=== PATIENT | male | born 1955 | race Caucasian/White ===

== ENCOUNTER 2020-03-03 07:05 | Outpatient (CLI) | payer OTHER, MEDICARE, SELFPAY ==
[2020-03-03 07:57] LABS: Alanine Aminotransferase 25 U/L (4-50); Albumin Level 4.1 g/dL (3.5-5.1); Alkaline Phosphatase 61 U/L (38-126); Aspartate Amino Transferase 29 U/L (17-59); Bilirubin,Total 0.4 mg/dL (0.2-1.3); Blood Urea Nitrogen 21 mg/dL (9-20); Calcium 8.5 mg/dL (8.4-10.2); Carbon Dioxide 29 mmol/L (22-30); Chloride 106 mmol/L (98-107); Estimated Glomerular Filt Rate > 60; Glucose 139 mg/dL (75-110); Potassium 4.1 mmol/L (3.4-5.0); Sodium 140 mmol/L (137-145)
[2020-03-03 08:01] LABS: Hemoglobin A1C 6.6 % (<5.7)
== END 2020-03-03 07:06 | disposition home or self-care (01) ==
PROVIDERS: PCP Family Medicine; Visit Provider Family Medicine
DX: E11.9 Type 2 diabetes mellitus without complications (principal)
CPT/HCPCS: 36415; 80053; 83036

== ENCOUNTER 2020-08-06 06:45 | Outpatient (CLI) | payer OTHER, MEDICARE, SELFPAY ==
[2020-08-06 07:16] LABS: Alanine Aminotransferase 31 U/L (4-50); Alkaline Phosphatase 61 U/L (38-126); Anion Gap 5 mmol/L (8-16); Aspartate Amino Transferase 33 U/L (17-59); Bilirubin,Total 0.4 mg/dL (0.2-1.3); Blood Urea Nitrogen 26 mg/dL (9-20); Calcium 8.5 mg/dL (8.4-10.2); Carbon Dioxide 31 mmol/L (22-30); Chloride 106 mmol/L (98-107); Estimated Glomerular Filt Rate > 60; Glucose 139 mg/dL (75-110); Potassium 4.3 mmol/L (3.4-5.0); Sodium 142 mmol/L (137-145)
[2020-08-06 07:19] LABS: Hemoglobin A1C 6.5 % (<5.7)
== END 2020-08-06 06:46 | disposition home or self-care (01) ==
PROVIDERS: PCP Family Medicine; Visit Provider Family Medicine
DX: E11.9 Type 2 diabetes mellitus without complications (principal)
CPT/HCPCS: 36415; 80053; 83036

== ENCOUNTER 2020-12-08 07:56 | Outpatient (CLI) | payer OTHER, MEDICARE, SELFPAY ==
[2020-12-08 08:22] LABS: Hematocrit 46.4 % (42.0-52.0); Hemoglobin 15.1 g/dL (14.0-18.0); Mean Corpuscular HGB Conc 32.5 g/dl (32-36); Mean Corpuscular Volume 86.1 fl (80-100); Mean Platelet Volume 9.3 fl (7.4-10.4); Platelet Count Result 269 k/mm3 (150-375); Red Blood Count 5.39 M/mm3 (4.6-6.20); Red Cell Distribution Width 12.6 % (11.5-14.5); White Blood Count 5.6 K/mm3 (4.5-10.0)
[2020-12-08 08:26] LABS: Add Urine Microscopic? YES; Appearance Urine Clear (Clear); Bilirubin Urine Negative (Negative); Blood Urine Negative (Negative); Color Urine Yellow (Yellow); Glucose Urine UA 3+ mg/dL (Negative); Ketones Urine Negative (Negative); Leukocyte Esterase Ur Negative LEU/UL (Negative); Mucus Urine Rare /lpf; Nitrate Urine Negative (Negative); Protein Urine Negative (Negative); RBC Urine 0-2 /hpf (0-2); Specific Grav Ur 1.028 (1.001-1.035); Squamous Epithelial Cell Urine Occasional /hpf (Few); Urobilinogen Urine Negative mg/dL (<2.0)
[2020-12-08 08:54] LABS: Creatinine Urine 107.4 mg/dL
[2020-12-08 09:24] LABS: MALB Creatinine Ratio < 5.6 mg/g (0-30); Microalbumin Urine Random < 6.0 mg/L (0-16.7)
[2020-12-08 12:11] LABS: Alanine Aminotransferase 29 U/L (4-50); Alkaline Phosphatase 64 U/L (38-126); Anion Gap 5 mmol/L (8-16); Aspartate Amino Transferase 32 U/L (17-59); Bilirubin,Total 0.5 mg/dL (0.2-1.3); Blood Urea Nitrogen 24 mg/dL (9-20); Calcium 8.8 mg/dL (8.4-10.2); Carbon Dioxide 29 mmol/L (22-30); Chloride 106 mmol/L (98-107); Cholesterol 151 mg/dL (0-200); Estimated Glomerular Filt Rate > 60; Glucose 145 mg/dL (75-110); HDL Direct 30 mg/dL; Potassium 4.2 mmol/L (3.4-5.0); Sodium 140 mmol/L (137-145); Triglycerides 156 mg/dL (<150)
[2020-12-08 12:26] LABS: LDL Cholesterol Direct 102 mg/dL
[2020-12-08 12:43] LABS: Prostate Specific Antigen 2.1 ng/mL (< OR = 4.0)
[2020-12-08 13:55] LABS: Hemoglobin A1C 7.2 % (<5.7)
== END 2020-12-08 07:57 | disposition home or self-care (01) ==
LOC: ANHLAB 08:02
PROVIDERS: PCP Family Medicine; Visit Provider Family Medicine
DX: C61 Malignant neoplasm of prostate (principal); E11.9 Type 2 diabetes mellitus without complications; E78.2 Mixed hyperlipidemia; I10 Essential (primary) hypertension
CPT/HCPCS: 36415; 80053; 80061; 81001; 82043; 83036; 84153; 84443; 85027

== ENCOUNTER → 2020-12-24 11:11 | Outpatient (CLI) | payer OTHER, MEDICARE, SELFPAY ==
[2020-12-24 14:04] LABS: Influenza Control Positive
[2020-12-25 14:42] LABS: SARS-CoV-2 RNA PCR Negative
== END ==
PROVIDERS: PCP Family Medicine; Visit Provider Nurse Practitioner Family
DX: R05 Cough (principal); Z20.822 Contact with and (suspected) exposure to COVID-19
CPT/HCPCS: 87804; C9803; U0003; U0005

== ENCOUNTER 2021-04-27 06:54 | Outpatient (CLI) | payer OTHER, MEDICARE, SELFPAY ==
[2021-04-27 07:40] LABS: Alanine Aminotransferase 36 U/L (4-50); Albumin Level 4.2 g/dL (3.5-5.1); Alkaline Phosphatase 63 U/L (38-126); Anion Gap 7 mmol/L (8-16); Aspartate Amino Transferase 36 U/L (17-59); Bilirubin,Total 0.2 mg/dL (0.2-1.3); Blood Urea Nitrogen 23 mg/dL (9-20); Carbon Dioxide 28 mmol/L (22-30); Chloride 108 mmol/L (98-107); Estimated Glomerular Filt Rate > 60; Glucose 137 mg/dL (75-110); Potassium 4.6 mmol/L (3.4-5.0); Sodium 143 mmol/L (137-145)
[2021-04-27 07:44] LABS: Hemoglobin A1C 7.5 % (<5.7)
== END 2021-04-27 06:55 | disposition home or self-care (01) ==
PROVIDERS: PCP Family Medicine; Visit Provider Family Medicine
DX: E11.9 Type 2 diabetes mellitus without complications (principal)
CPT/HCPCS: 36415; 80053; 83036

== ENCOUNTER 2021-08-31 06:53 | Outpatient (CLI) | payer OTHER, MEDICARE, SELFPAY ==
[2021-08-31 07:28] LABS: Hemoglobin A1C 7.2 % (<5.7)
[2021-08-31 07:37] LABS: Alanine Aminotransferase 32 U/L (4-50); Albumin Level 4.3 g/dL (3.5-5.1); Alkaline Phosphatase 62 U/L (38-126); Anion Gap 9 mmol/L (8-16); Aspartate Amino Transferase 31 U/L (17-59); Bilirubin,Total 0.4 mg/dL (0.2-1.3); Blood Urea Nitrogen 24 mg/dL (9-20); Calcium 8.8 mg/dL (8.4-10.2); Carbon Dioxide 28 mmol/L (22-30); Chloride 104 mmol/L (98-107); Estimated Glomerular Filt Rate 60; Glucose 161 mg/dL (65-110); Potassium 4.4 mmol/L (3.4-5.0); Sodium 141 mmol/L (137-145)
== END 2021-08-31 06:54 | disposition home or self-care (01) ==
LOC: ANHLAB 06:56
PROVIDERS: PCP Family Medicine; Visit Provider Family Medicine
DX: E11.9 Type 2 diabetes mellitus without complications (principal)
CPT/HCPCS: 36415; 80053; 83036

== ENCOUNTER 2021-10-14 14:29 | Outpatient (CLI) | payer OTHER, MEDICARE, SELFPAY ==
--- NOTE | ~2021-10-14 | XR_ITS ---
XR knee LT 3V 10/14/2021 14:42 Indication: Left knee pain Procedure: 3 views left knee Comparison: No prior studies for comparison. Findings: There is mild tricompartment osteoarthritis. No acute fracture, subluxation or dislocation. There is a prominent incompletely ossified tibial tuberosity. No foreign bodies. Impression: 1: Mild osteoarthritis of the left knee. Reviewed, dictated and finalized at location A. PRINTER APPRENTICE Impression: 1: Mild osteoarthritis of the left knee.
== END 2021-10-14 14:30 | disposition home or self-care (01) ==
PROVIDERS: PCP Family Medicine; Visit Provider Family Medicine
DX: M17.12 Unilateral primary osteoarthritis, left knee (principal)
CPT/HCPCS: 73562

== ENCOUNTER 2021-11-01 07:45 | Outpatient (CLI) | payer OTHER, MEDICARE, SELFPAY ==
[2021-11-01 08:21] LABS: Hemoglobin A1C 7.8 % (<5.7)
== END 2021-11-01 07:46 | disposition home or self-care (01) ==
PROVIDERS: PCP Family Medicine
DX: E11.9 Type 2 diabetes mellitus without complications (principal)
CPT/HCPCS: 36415; 83036

== ENCOUNTER 2022-01-04 07:04 | Outpatient (CLI) | payer OTHER, MEDICARE, SELFPAY ==
[2022-01-04 07:54] LABS: Hemoglobin A1C 6.8 % (<5.7)
[2022-01-04 07:56] LABS: Alanine Aminotransferase 31 U/L (4-50); Albumin Level 4.2 g/dL (3.5-5.1); Alkaline Phosphatase 58 U/L (38-126); Anion Gap 5 mmol/L (8-16); Aspartate Amino Transferase 36 U/L (17-59); Bilirubin,Total 0.6 mg/dL (0.2-1.3); Blood Urea Nitrogen 24 mg/dL (9-20); Calcium 8.6 mg/dL (8.4-10.2); Carbon Dioxide 31 mmol/L (22-30); Chloride 105 mmol/L (98-107); Cholesterol 147 mg/dL (0-200); Estimated Glomerular Filt Rate 60; Glucose 154 mg/dL (65-110); HDL Direct 28 mg/dL; Potassium 4.3 mmol/L (3.4-5.0); Sodium 141 mmol/L (137-145); Triglycerides 177 mg/dL (<150)
[2022-01-04 08:06] LABS: LDL Cholesterol Direct 92 mg/dL
[2022-01-04 08:08] LABS: Add Urine Microscopic? YES; Appearance Urine Clear (Clear); Bilirubin Urine Negative (Negative); Blood Urine Negative (Negative); Color Urine Yellow (Yellow); Glucose Urine UA 3+ mg/dL (Negative); Ketones Urine Negative (Negative); Leukocyte Esterase Ur Negative LEU/UL (NEGATIVE); Mucus Urine Rare /lpf; Nitrate Urine Negative (Negative); Protein Urine Negative (Negative); Specific Grav Ur 1.024 (1.001-1.035); Squamous Epithelial Cell Urine Occasional /hpf (Few); Urobilinogen Urine Negative mg/dL (<2.0)
[2022-01-04 08:14] LABS: Hematocrit 45.2 % (42.0-52.0); Mean Corpuscular HGB Conc 33.2 g/dl (32-36); Mean Corpuscular Volume 87.4 fl (80-100); Mean Platelet Volume 9.5 fl (7.4-10.4); Platelet Count Result 280 k/mm3 (150-375); Red Blood Count 5.17 M/mm3 (4.6-6.20); Red Cell Distribution Width 12.9 % (11.5-14.5); White Blood Count 5.2 K/mm3 (4.5-10.0)
[2022-01-04 08:48] LABS: Creatinine Urine 136.3 mg/dL
[2022-01-04 08:52] LABS: MALB Creatinine Ratio 4.7 mg/g (0-30); Microalbumin Urine Random 6.4 mg/L (0-16.7)
== END 2022-01-04 07:05 | disposition home or self-care (01) ==
PROVIDERS: PCP Family Medicine; Visit Provider Family Medicine
DX: E11.9 Type 2 diabetes mellitus without complications (principal); I10 Essential (primary) hypertension; E78.00 Pure hypercholesterolemia, unspecified
CPT/HCPCS: 36415; 80053; 80061; 81001; 82043; 83036; 84443; 85027

== ENCOUNTER 2022-02-07 14:12 | Emergency (ER) | payer OTHER, MEDICARE, SELFPAY ==
--- NOTE | ~2022-02-07 | US_ITS ---
EXAMINATION: US venous doppler LE RT EXAM DATE: 02/07/2022 15:28 INDICATION: Right calf pain. TECHNIQUE: Multiple grayscale, color flow and Doppler images of the right lower extremity deep venous system were obtained and reviewed. Comparison is made to prior examination from 11/21/2014. FINDINGS: The right common femoral, femoral and profunda veins demonstrate normal color flow, respira tory variation, augmentation and compressibility. Compressibility, color flow confirmed within the r ight popliteal, posterior tibial, peroneal, and greater saphenous veins. IMPRESSION: No right lower extremity deep venous thrombosis. Reviewed, dictated and finalized at location A.
[2022-02-07 14:14] VITALS: BP 134/77; PULSE 82; RESP 18; TEMP 36.6; O2SAT 98
[2022-02-07 14:30] VITALS: BP 129/70; PULSE 76; RESP 15; O2SAT 99
[2022-02-07 14:55] LABS: Basophils Absolute Auto 0.1 K/mm3 (0.0-0.1); Basophils Percent Auto 0.7 % (0.2-1.2); Eosinophils Absolute Auto 0.3 K/mm3 (0-0.3); Eosinophils Percent Auto 3.8 % (0-4.4); Hematocrit 43.9 % (42.0-52.0); Hemoglobin 13.9 g/dL (14.0-18.0); Immature Granulocyte Absolute 0.04 K/mm3 (0.00-0.031); Immature Granulocyte Percent A 0.6 % (0-0.5); Lymphocytes Absolute Auto 1.74 K/mm3 (0.9-3.2); Lymphocytes Percent Auto 25.6 % (18.3-44.2); Mean Corpuscular HGB Conc 31.7 g/dl (32-36); Mean Corpuscular Hemoglobin 28.7 pg (26-34); Mean Corpuscular Volume 90.5 fl (80-100); Mean Platelet Volume 8.9 fl (7.4-10.4); Monocytes Absolute Auto 0.3 K/mm3 (0.1-0.6); Neutrophils Absolute Auto 4.4 K/mm3 (1.3-6.7); Neutrophils Percent Auto 64.3 % (45.5-73.1); Platelet Count Result 484 k/mm3 (150-375); Red Blood Count 4.85 M/mm3 (4.6-6.20); Red Cell Distribution Width 12.5 % (11.5-14.5); White Blood Count 6.8 K/mm3 (4.5-10.0)
[2022-02-07 15:05] LABS: Prothrombin Time 12.8 Seconds (11.1-14.7)
[2022-02-07 15:06] LABS: Anion Gap 6 mmol/L (8-16); Blood Urea Nitrogen 28 mg/dL (9-20); Calcium 8.6 mg/dL (8.4-10.2); Carbon Dioxide 28 mmol/L (22-30); Chloride 107 mmol/L (98-107); Estimated CRCL calculation 74 ml/min; Estimated Glomerular Filt Rate > 60; Glucose 143 mg/dL (65-110); Partial Thromboplastin Time 26.1 SECONDS (22.3-36.8); Sodium 141 mmol/L (137-145)
[2022-02-07 15:30] VITALS: BP 119/70; PULSE 69; RESP 17; O2SAT 97
[2022-02-07 15:54] VITALS: BP 119/60; PULSE 68; RESP 18; O2SAT 97
--- NOTE | 2022-02-07 15:58 | ED.GENADULT ---
HPI - General Adult General Chief complaint: Extremity Problem,Nontraumatic Stated complaint: blood clot Time Seen by Provider: 02/07/22 14:16 Source: RN notes reviewed History of Present Illness HPI narrative: Patient presents emergency department from home for leg redness. Patient states that he had knee replacement surgery on January [address] Fischer at [facility]. He states that starting excellently 4 days ago he began to have a circular area of erythema over his right anterior kumari he states that the area has been tender to the touch there is been no overlying wounds and no drainage he states that he is on Lovenox 40 mg daily does have a history of DVTs states he had contacted his orthopedic doctors and was instructed to return to the emergency department to rule out a blood clot he denies any fever chills chest pain shortness of breath or any other symptoms Related Data Home Medications Medication Instructions Recorded Confirmed multivitamin 1 tablet PO DAILY 10/20/19 01/07/22 enoxaparin 02/07/22 Allergies Allergy/AdvReac Type Severity Reaction Status Date / Time No Known Allergies Allergy Verified 01/07/22 16:02 Review of Systems Review of Systems: Gen.: Denies fevers or chills ENT: Denies congestion Respiratory: Denies shortness of breath or cough CV: Denies chest pain or palpitations GI: Denies abdominal pain nausea, emesis or diarrhea Musculoskeletal: See Neuro: Denies numbness, tingling, weakness or focal weakness Skin: Denies rash Except as documented, all other systems reviewed and negative PMFSH Past Medical History Medical History Hx of deep venous thrombosis Tx with Xarelto many years ago Surgical History Surgical History (Updated 01/30/22 @ 13:09 by Bridger De Jesus MD) H/O radical prostatectomy radical prostatectomy in 2011, ureteral resection and artificial ureteral sphincter placement in 2016. H/O sinus surgery 2013 History of knee replacement R hemiarthroplasty [place] teeth extracted 1969's Family History Family History Mother Asthma Family history of coronary artery disease Sibling Family history of diabetes mellitus in first degree relative Other Family history of arthritis Family history of type 2 diabetes mellitus Malignant neoplasm of prostate Social History Social History (Reviewed 02/07/22 @ 16:00 by MARIA T Cronin Smoking status: Former smoker Tobacco type: cigars Second hand tobacco smoke exposure: No Smoking end date: 11/02/08 Alcohol intake: current Alcohol use details: Social alcohol use Substance use: never Substance use type: does not use 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 CARDIOVASCULAR: Regular rate and rhythm without murmurs rubs or gallops. ABDOMINAL: Soft, nontender, nondistended, no rebound or guarding MUSCULOSKELETAl: Moves all extremities. No clubbing, cyanosis or edema. Right lower extremity with sutured incision over anterior knee that is clean and intact there is no surrounding erythema there is mild tenderness of the right calf over the anterior kumari there is a small circular area to centimeters by 2 cm that is erythematous there is no overlying vesicles or wounds there is no drainage there is no fluctuance is mildly tender to palpation dorsalis pedis pulse 2+ neurovascular NEURO: Awake and alert. Following commands, speech normal, no focal deficits SKIN:: Warm, dry. No rashes lesions or abrasions PSYCHIATRIC: Normal affect/mood, Course Course Emergency Course: Called
[2022-02-07 16:50] VITALS: BP 125/68; PULSE 68; RESP 19; O2SAT 97
== END 2022-02-07 16:50 | disposition home or self-care (01) ==
PROVIDERS: Emergency Provider Emergency Medicine; PCP Family Medicine
DX: M79.604 Pain in right leg (principal); Z96.651 Presence of right artificial knee joint; Z86.718 Personal history of other venous thrombosis and embolism; Z90.79 Acquired absence of other genital organ(s); Z87.891 Personal history of nicotine dependence
CPT/HCPCS: 36415; 80048; 85025; 85610; 85730; 93971; 99284

== ENCOUNTER 2022-05-10 07:06 | Outpatient (CLI) | payer OTHER, MEDICARE, SELFPAY ==
[2022-05-10 08:07] LABS: Alanine Aminotransferase 27 U/L (6-50); Albumin Level 4.2 g/dL (3.5-5.1); Alkaline Phosphatase 62 U/L (38-126); Anion Gap 5 mmol/L (8-16); Aspartate Amino Transferase 26 U/L (17-59); Bilirubin,Total 0.4 mg/dL (0.2-1.3); Blood Urea Nitrogen 25 mg/dL (9-20); Calcium 8.4 mg/dL (8.4-10.2); Carbon Dioxide 29 mmol/L (22-30); Chloride 107 mmol/L (98-107); Estimated Glomerular Filt Rate > 60; Glucose 128 mg/dL (65-110); Sodium 141 mmol/L (137-145)
[2022-05-10 08:46] LABS: Hemoglobin A1C 6.7 % (<5.7)
== END 2022-05-10 07:07 | disposition home or self-care (01) ==
PROVIDERS: PCP Family Medicine; Visit Provider Family Medicine
DX: E11.9 Type 2 diabetes mellitus without complications (principal)
CPT/HCPCS: 36415; 80053; 83036

== ENCOUNTER 2022-09-13 08:00 | Outpatient (CLI) | payer OTHER, MEDICARE, SELFPAY ==
[2022-09-13 09:16] LABS: Alanine Aminotransferase 34 U/L (6-50); Albumin Level 4.3 g/dL (3.5-5.1); Alkaline Phosphatase 48 U/L (38-126); Anion Gap 10 mmol/L (8-16); Aspartate Amino Transferase 35 U/L (17-59); Bilirubin,Total 0.3 mg/dL (0.2-1.3); Blood Urea Nitrogen 25 mg/dL (9-20); Calcium 9.1 mg/dL (8.4-10.2); Carbon Dioxide 30 mmol/L (22-30); Chloride 103 mmol/L (98-107); Estimated Glomerular Filt Rate > 60; Glucose 175 mg/dL (65-110); Potassium 4.4 mmol/L (3.4-5.0); Sodium 143 mmol/L (137-145)
== END 2022-09-13 08:01 | disposition home or self-care (01) ==
LOC: ANHLAB 08:02
PROVIDERS: PCP Family Medicine; Visit Provider Family Medicine
DX: E11.9 Type 2 diabetes mellitus without complications (principal)
CPT/HCPCS: 36415; 80053; 83036

== ENCOUNTER 2023-01-19 07:09 | Outpatient (CLI) | payer OTHER, MEDICARE, SELFPAY ==
[2023-01-19 08:16] LABS: Appearance Urine Clear (Clear); Bilirubin Urine Negative (Negative); Blood Urine Negative (Negative); Color Urine Yellow (Yellow); Glucose Urine UA 3+ mg/dL (Negative); Ketones Urine Negative (Negative); Leukocyte Esterase Ur Negative LEU/UL (NEGATIVE); Nitrate Urine Negative (Negative); Protein Urine Negative (Negative); Urobilinogen Urine 0.2 mg/dL (<2.0)
[2023-01-19 08:17] LABS: Hematocrit 38.7 % (42.0-52.0); Hemoglobin 12.7 g/dL (14.0-18.0); Mean Corpuscular HGB Conc 32.8 g/dl (32-36); Mean Corpuscular Volume 88.4 fl (80-100); Mean Platelet Volume 9.7 fl (7.4-10.4); Platelet Count Result 261 k/mm3 (150-375); Red Blood Count 4.38 M/mm3 (4.6-6.20); Red Cell Distribution Width 13.1 % (11.5-14.5); White Blood Count 3.3 K/mm3 (4.5-10.0)
[2023-01-19 08:37] LABS: Add Urine Microscopic? NO
[2023-01-19 09:36] LABS: Creatinine Urine 89.3 mg/dL
[2023-01-19 09:50] LABS: Hemoglobin A1C 6.9 % (<5.7)
[2023-01-19 09:50] LABS: MALB Creatinine Ratio < 6.7 mg/g (0-30); Microalbumin Urine Random < 6.0 mg/L (0-16.7)
[2023-01-19 10:42] LABS: Alanine Aminotransferase 34 U/L (6-50); Albumin Level 4.2 g/dL (3.5-5.1); Alkaline Phosphatase 45 U/L (38-126); Anion Gap 5 mmol/L (8-16); Aspartate Amino Transferase 34 U/L (17-59); Bilirubin,Total 0.4 mg/dL (0.2-1.3); Blood Urea Nitrogen 25 mg/dL (9-20); Carbon Dioxide 32 mmol/L (22-30); Chloride 107 mmol/L (98-107); Cholesterol 185 mg/dL (0-200); Estimated Glomerular Filt Rate > 60; Glucose 145 mg/dL (65-110); HDL Direct 32 mg/dL; Potassium 4.2 mmol/L (3.4-5.0); Sodium 144 mmol/L (137-145); Triglycerides 188 mg/dL (<150)
[2023-01-19 10:59] LABS: LDL Cholesterol Direct 109 mg/dL
== END 2023-01-19 07:10 | disposition home or self-care (01) ==
PROVIDERS: PCP Family Medicine; Visit Provider Family Medicine
DX: Z00.00 Encounter for general adult medical examination without abnormal findings (principal); E11.9 Type 2 diabetes mellitus without complications; I10 Essential (primary) hypertension; E78.00 Pure hypercholesterolemia, unspecified
CPT/HCPCS: 36415; 80053; 80061; 81001; 81003; 82043; 83036; 84443; 85027

== ENCOUNTER 2023-03-06 02:50 | Day surgery (SDC) | payer OTHER, MEDICARE, SELFPAY ==
[2023-02-20 14:43] VITALS: BMI 37.3
--- NOTE | 2023-03-05 21:58 | PM.HPGS ---
History of Present Illness History of Present Illness Consent: Risks, benefits, and alternatives have been discussed and questions answered. Patient agrees to proceed with procedure. Chief complaint: hx of colon polyps Narrative: Wayne Kiran is a 67 year old male with a hx of polyps referred for colon cancer screeening. He had another tubular adenoma removed 6 years ago Review of Systems Review of Systems: All systems reviewed & are unremarkable except as noted in HPI and below PMFSH Past Medical History Medical History Hx of deep venous thrombosis Tx with Xarelto many years ago Surgical History Surgical History H/O radical prostatectomy radical prostatectomy in 2011, ureteral resection and artificial ureteral sphincter placement in 2015. H/O sinus surgery 2013 History of knee replacement R hemiarthroplasty [place] teeth extracted 1969' Family History Family History Mother Asthma Family history of coronary artery disease Sibling Family history of diabetes mellitus in first degree relative Other Family history of arthritis Family history of type 2 diabetes mellitus Malignant neoplasm of prostate Social History Social History Smoking status: Former smoker Tobacco type: cigars Second hand tobacco smoke exposure: No Smoking end date: 11/02/08 Alcohol intake: current Alcohol use details: Social alcohol use Substance use: never Substance use type: does not use Living arrangements: with family Occupation/Education: occupation 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 Gender identity (if verbalized by the patient): Male Meds Home Medications and Allergies Home Medications Medication Instructions Recorded Confirmed Type multivitamin 1 tablet PO DAILY 10/20/19 03/06/23 History albuterol sulfate 90 mcg/actuation 1 puff inhalation Q6H PRN 10/14/21 03/06/23 Rx aerosol inhaler shortness of breath or wheezing #8.5 grams enoxaparin 40 mg/0.4 mL 40 mg subcut MONTHLY 02/07/22 02/20/23 History subcutaneous syringe (Lovenox) empagliflozin 25 mg tablet 25 mg PO QAM #90 tabs 06/11/22 03/06/23 Rx (Jardiance) fenofibrate 160 mg tablet 160 mg PO DAILY #90 tabs 09/03/22 03/06/23 Rx sitagliptin phosphate 100 mg 100 mg PO DAILY #90 tabs 09/03/22 03/06/23 Rx tablet (Januvia) insulin degludec 100 unit/mL (3 35 unit (0.35 mL) subcut QHS #15 mL 11/24/22 03/06/23 Rx mL) subcutaneous pen (Tresiba FlexTouch U-100 insulin) pen needle, diabetic 29 gauge x #100 ea 11/24/22 03/06/23 Rx 1/2 (UltiCare Pen Needle) atorvastatin 10 mg tablet (Lipitor) 10 mg PO DAILY #90 tabs 11/26/22 03/06/23 Rx blood-glucose meter (Precision #1 ea 01/02/23 03/06/23 Rx Xtra Monitor) lisinopril 10 mg tablet 10 mg PO DAILY #90 tabs 02/19/23 03/06/23 Rx blood sugar diagnostic (Precision #100 ea 02/20/23 03/06/23 Rx Xtra Test strips) Allergies Allergy/AdvReac Type Severity Reaction Status Date / Time No Known Allergies Allergy Verified 03/06/23 10:30 Exam Const: General: alert Orientation/consciousness: patient oriented x3 Resp: Auscultation: clear to auscultation bilaterally Cardio: Rhythm: regular rhythm GI: GI Palp: Yes Soft to palpation and No Tenderness to palpation present (GI) Neuro: General: patient oriented x3 Assessment and Plan Assessment and plan (1) Colon cancer screening: Code(s): Z12.11 - Encounter for screening for malignant neoplasm of colon Status: Acute Assessment and Plan: Colonoscopy with possible biopsy or polypectomy or cautery or injection of substances.
[2023-03-06 10:33] VITALS: BP 129/71; PULSE 66; RESP 18; TEMP 36.3; O2SAT 99; BMI 38.0
[2023-03-06] MEDS: LACTATED RINGERS 1,000 ML 150 ML IV CONT (10:36)
[2023-03-06 10:50] LABS: Glucose Point of Care 119 mg/dl (65-105)
--- NOTE | 2023-03-06 11:26 | WPDANESEPPF ---
Anes - Initial Pre Proc Eval Procedure: Operation Date: 03/06/23 11:15 Proposed Procedures p Colonoscopy - Cody Rios MD Date/Time: 03/06/23 11:26 Surgeon: Cody Rios MD Pre Op Diagnosis: hx of colon polyps Patient Data Age: 67 Gender: M Height: 1.78 m Weight: 120.4 kg Last Vital Signs Temp 97.3 F L 03/06/23 10:33 Pulse 66 03/06/23 10:33 Resp 18 03/06/23 10:33 BP 129/71 03/06/23 10:33 Pulse Ox 99 03/06/23 10:33 O2 Del Method Room Air 03/06/23 10:33 Allergies Allergy/AdvReac Type Severity Reaction Status Date / Time No Known Allergies Allergy Verified 03/06/23 10:30 Home Medications Medication Instructions Recorded Confirmed Type multivitamin 1 tablet PO DAILY 10/20/19 03/06/23 History albuterol sulfate 90 mcg/actuation 1 puff inhalation Q6H PRN 10/14/21 03/06/23 Rx aerosol inhaler shortness of breath or wheezing #8.5 grams empagliflozin 25 mg tablet 25 mg PO QAM #90 tabs 06/11/22 03/06/23 Rx (Jardiance) fenofibrate 160 mg tablet 160 mg PO DAILY #90 tabs 09/03/22 03/06/23 Rx sitagliptin phosphate 100 mg 100 mg PO DAILY #90 tabs 09/03/22 03/06/23 Rx tablet (Januvia) insulin degludec 100 unit/mL (3 35 unit (0.35 mL) subcut QHS #15 mL 11/24/22 03/06/23 Rx mL) subcutaneous pen (Tresiba FlexTouch U-100 insulin) pen needle, diabetic 29 gauge x #100 ea 11/24/22 03/06/23 Rx 1/2 (UltiCare Pen Needle) atorvastatin 10 mg tablet (Lipitor) 10 mg PO DAILY #90 tabs 11/26/22 03/06/23 Rx blood-glucose meter (Precision #1 ea 01/02/23 03/06/23 Rx Xtra Monitor) lisinopril 10 mg tablet 10 mg PO DAILY #90 tabs 02/19/23 03/06/23 Rx blood sugar diagnostic (Precision #100 ea 02/20/23 03/06/23 Rx Xtra Test strips) Laboratory Tests 03/06/23 10:45 POC Capillary Glucose 119 H mg/dl (65-105) Patient hx anesthesia problems: none Family hx anesthesia problems: none Results Review: All pre-operative results and documents have been reviewed as part of the pre-operative evaluation. [facility] Past Medical History Medical History Hx of deep venous thrombosis Tx with Xarelto many years ago Surgical History Surgical History H/O radical prostatectomy radical prostatectomy in 2011, ureteral resection and artificial ureteral sphincter placement in 2016. H/O sinus surgery 2013 History of knee replacement R hemiarthroplasty [place] teeth extracted 1969' Family History Family History Mother Asthma Family history of coronary artery disease Sibling Family history of diabetes mellitus in first degree relative Other Family history of arthritis Family history of type 2 diabetes mellitus Malignant neoplasm of prostate Social History Social History Smoking status: Former smoker Tobacco type: cigars Second hand tobacco smoke exposure: No Smoking end date: 11/02/08 Alcohol intake: current Alcohol use details: Social alcohol use Substance use: never Substance use type: does not use Living arrangements: with family Occupation/Education: occupation 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 Informed Consent: The patient's an
[2023-03-06 11:37] VITALS: BP 101/63; PULSE 62; RESP 16; O2SAT 97
[2023-03-06 11:47] VITALS: BP 105/62; PULSE 58; RESP 18; O2SAT 98
[2023-03-06 11:54] LABS: Glucose Point of Care 103 mg/dl (65-105)
[2023-03-06 11:57] VITALS: BP 113/66; PULSE 52; RESP 16; O2SAT 100
== END 2023-03-06 12:11 | disposition home or self-care (01) ==
PROVIDERS: PCP Family Medicine; Visit Provider Internal Medicine Gastroenterology
PROC: 0DJD8ZZ Inspection of Lower Intestinal Tract, Via Natural or Artificial Opening Endoscopic (ICD-10-PCS; CPT 45378; principal; 2023-03-06 11:15)
DX: Z12.11 Encounter for screening for malignant neoplasm of colon (principal); K62.1 Rectal polyp; K57.30 Diverticulosis of large intestine without perforation or abscess without bleeding; K64.8 Other hemorrhoids; Z86.718 Personal history of other venous thrombosis and embolism; Z87.891 Personal history of nicotine dependence; Z79.51 Long term (current) use of inhaled steroids; Z79.84 Long term (current) use of oral hypoglycemic drugs; Z79.4 Long term (current) use of insulin; E66.9 Obesity, unspecified; Z68.38 Body mass index [BMI] 38.0-38.9, adult
CPT/HCPCS: 45385; 82948; 88305; J2704; J7120

== ENCOUNTER 2023-05-30 06:57 | Outpatient (CLI) | payer OTHER, MEDICARE, SELFPAY ==
[2023-05-30 07:34] LABS: Hematocrit 43.3 % (42.0-52.0); Hemoglobin 14.1 g/dL (14.0-18.0); Mean Corpuscular HGB Conc 32.6 g/dl (32-36); Mean Corpuscular Hemoglobin 28.7 pg (26-34); Mean Platelet Volume 9.3 fl (7.4-10.4); Platelet Count Result 286 k/mm3 (150-375); Red Blood Count 4.92 M/mm3 (4.6-6.20); Red Cell Distribution Width 12.7 % (11.5-14.5); White Blood Count 5.8 K/mm3 (4.5-10.0)
[2023-05-30 07:58] LABS: Alanine Aminotransferase 42 U/L (6-50); Albumin Level 4.4 g/dL (3.5-5.1); Alkaline Phosphatase 44 U/L (38-126); Anion Gap 8 mmol/L (8-16); Aspartate Amino Transferase 35 U/L (17-59); Bilirubin,Total 0.3 mg/dL (0.2-1.3); Blood Urea Nitrogen 28 mg/dL (9-20); Calcium 8.6 mg/dL (8.4-10.2); Carbon Dioxide 28 mmol/L (22-30); Chloride 102 mmol/L (98-107); Estimated Glomerular Filt Rate > 60; Glucose 192 mg/dL (65-110); Sodium 138 mmol/L (137-145)
[2023-05-30 10:32] LABS: Hemoglobin A1C 8.1 % (<5.7)
== END 2023-05-30 06:58 | disposition home or self-care (01) ==
PROVIDERS: PCP Family Medicine; Visit Provider Family Medicine
DX: D64.9 Anemia, unspecified (principal); E11.9 Type 2 diabetes mellitus without complications
CPT/HCPCS: 36415; 80053; 83036; 85027

== ENCOUNTER 2023-10-14 12:40 | Outpatient (CLI) | payer OTHER, MEDICARE, SELFPAY ==
--- NOTE | ~2023-10-14 | XR_ITS ---
EXAMINATION: XR chest 2V DATE: 10/14/2023 12:35 INDICATION: Cough and congestion. Shortness of breath. TECHNIQUE: Frontal and lateral views of the chest were obtained. COMPARISON: Chest 2 views 12/09/14 FINDINGS: There is no pneumonia, pleural effusion, or pneumothorax. The heart size is normal. IMPRESSION: 1. No acute cardiopulmonary disease. Reviewed, dictated and finalized at location A. ET COMMISSIONER
[2023-10-14 13:49] LABS: Influenza A QL RT-PCR Negative (Negative); Influenza B QL RT-PCR Negative (Negative); SARS-CoV-2 RNA PCR Negative (Negative)
== END 2023-10-14 12:41 | disposition home or self-care (01) ==
PROVIDERS: PCP Family Medicine; Visit Provider Physician Assistant
DX: R05.9 Cough, unspecified (principal); R06.02 Shortness of breath; R52 Pain, unspecified; Z20.822 Contact with and (suspected) exposure to COVID-19
CPT/HCPCS: 71046; 87636

== ENCOUNTER 2023-11-21 07:56 | Outpatient (CLI) | payer OTHER, MEDICARE, SELFPAY ==
[2023-11-21 08:42] LABS: Alanine Aminotransferase 31 U/L (6-50); Alkaline Phosphatase 61 U/L (38-126); Anion Gap 6 mmol/L (8-16); Aspartate Amino Transferase 35 U/L (17-59); Bilirubin,Total 0.6 mg/dL (0.2-1.3); Blood Urea Nitrogen 22 mg/dL (9-20); Calcium 8.8 mg/dL (8.4-10.2); Carbon Dioxide 30 mmol/L (22-30); Chloride 107 mmol/L (98-107); Estimated Glomerular Filt Rate > 60; Glucose 122 mg/dL (65-110); Potassium 4.2 mmol/L (3.4-5.0); Sodium 143 mmol/L (137-145)
[2023-11-21 08:45] LABS: Hemoglobin A1C 7.2 % (<5.7)
== END 2023-11-21 07:57 | disposition home or self-care (01) ==
LOC: ANHLAB 08:00
PROVIDERS: PCP Family Medicine; Visit Provider Family Medicine
DX: E11.9 Type 2 diabetes mellitus without complications (principal)
CPT/HCPCS: 36415; 80053; 83036

== ENCOUNTER 2024-02-11 16:16 | Outpatient (CLI) | payer OTHER, MEDICARE, SELFPAY ==
--- NOTE | ~2024-02-11 | XR_ITS ---
XR hip LT min 2V 02/11/2024 16:38 Indication: Left hip pain Procedure: 2 views left hip Comparison: No prior studies for comparison. Findings: There is mild osteoarthritis of the left hip. No fracture or traumatic malalignment. There are surgical clips in the pelvis. No focal soft tissue abnormality. No foreign bodies. Impression: 1: Mild osteoarthritis of the left hip. Reviewed, dictated and finalized at location A. Impression: 1: Mild osteoarthritis of the left hip.
== END 2024-02-11 16:17 | disposition home or self-care (01) ==
LOC: ANHIMG 16:18
PROVIDERS: PCP Family Medicine; Visit Provider Physician Assistant
DX: M16.12 Unilateral primary osteoarthritis, left hip (principal)
CPT/HCPCS: 73502

== ENCOUNTER 2024-04-09 07:11 | Outpatient (CLI) | payer OTHER, MEDICARE, SELFPAY ==
[2024-04-09 07:57] LABS: Hematocrit 44.6 % (42.0-52.0); Hemoglobin 14.4 g/dL (14.0-18.0); Mean Corpuscular HGB Conc 32.3 g/dl (32-36); Mean Corpuscular Hemoglobin 28.9 pg (26-34); Mean Corpuscular Volume 89.6 fl (80-100); Mean Platelet Volume 9.2 fl (7.4-10.4); Platelet Count Result 275 k/mm3 (150-375); Red Blood Count 4.98 M/mm3 (4.6-6.20); Red Cell Distribution Width 13.1 % (11.5-14.5); White Blood Count 4.7 K/mm3 (4.5-10.0)
[2024-04-09 07:59] LABS: Appearance Urine Clear (Clear); Bilirubin Urine Negative (Negative); Blood Urine Negative (Negative); Color Urine Yellow (Yellow); Glucose Urine UA 3+ mg/dL (Negative); Ketones Urine Negative (Negative); Leukocyte Esterase Ur Negative LEU/UL (Negative); Nitrate Urine Negative (Negative); Protein Urine Negative (Negative); Urobilinogen Urine 0.2 mg/dL (<2.0)
[2024-04-09 08:02] LABS: Specific Grav Ur 1.032 (1.001-1.035)
[2024-04-09 08:03] LABS: Add Urine Microscopic? NO
[2024-04-09 08:07] LABS: Alanine Aminotransferase 34 U/L (6-50); Albumin Level 4.2 g/dL (3.5-5.1); Alkaline Phosphatase 63 U/L (38-126); Anion Gap 6 mmol/L (4-12); Aspartate Amino Transferase 31 U/L (17-59); Bilirubin,Total 0.6 mg/dL (0.2-1.3); Blood Urea Nitrogen 20 mg/dL (9-20); Calcium 9.1 mg/dL (8.4-10.2); Carbon Dioxide 29 mmol/L (22-30); Chloride 106 mmol/L (98-107); Cholesterol 162 mg/dL (0-200); Estimated Glomerular Filt Rate > 60; Glucose 123 mg/dL (65-110); HDL Direct 30 mg/dL; Potassium 4.1 mmol/L (3.4-5.0); Sodium 141 mmol/L (137-145); Triglycerides 196 mg/dL (<150)
[2024-04-09 08:18] LABS: LDL Cholesterol Direct 106 mg/dL
[2024-04-09 08:48] LABS: Creatinine Urine 107.2 mg/dL
[2024-04-09 09:03] LABS: MALB Creatinine Ratio < 5.6 mg/g (0-30); Microalbumin Urine Random < 6.0 mg/L (0-16.7)
[2024-04-09 09:26] LABS: Hemoglobin A1C 6.4 % (<5.7)
== END 2024-04-09 07:12 | disposition home or self-care (01) ==
LOC: ANHLAB 07:20
PROVIDERS: PCP Family Medicine; Visit Provider Family Medicine
DX: E78.00 Pure hypercholesterolemia, unspecified (principal); E11.3299 Type 2 diabetes mellitus with mild nonproliferative diabetic retinopathy without macular edema, unspecified eye; I10 Essential (primary) hypertension; Z00.00 Encounter for general adult medical examination without abnormal findings
CPT/HCPCS: 36415; 80053; 80061; 81003; 82043; 83036; 84443; 85027

== ENCOUNTER 2024-07-29 06:38 | Outpatient (CLI) | payer OTHER, MEDICARE, SELFPAY ==
[2024-07-29 08:04] LABS: Hemoglobin A1C 6.1 % (<5.7)
[2024-07-29 08:07] LABS: Alanine Aminotransferase 42 U/L (6-50); Albumin Level 4.1 g/dL (3.5-5.1); Alkaline Phosphatase 67 U/L (38-126); Anion Gap 7 mmol/L (4-12); Aspartate Amino Transferase 46 U/L (17-59); Bilirubin,Total 0.6 mg/dL (0.2-1.3); Blood Urea Nitrogen 26 mg/dL (9-20); Calcium 8.6 mg/dL (8.4-10.2); Carbon Dioxide 29 mmol/L (22-30); Chloride 104 mmol/L (98-107); Estimated Glomerular Filt Rate > 60; Glucose 86 mg/dL (65-110); Potassium 3.7 mmol/L (3.4-5.0); Sodium 140 mmol/L (137-145)
[2024-07-29 08:29] LABS: Prostate Specific Antigen < 0.1 ng/mL (< OR = 4.0)
[2024-07-31 21:18] LABS: Testosterone Total 330 ng/dL (250-1100)
== END 2024-07-29 06:39 | disposition home or self-care (01) ==
PROVIDERS: PCP Family Medicine; Visit Provider Family Medicine
DX: C61 Malignant neoplasm of prostate (principal); E11.9 Type 2 diabetes mellitus without complications; I10 Essential (primary) hypertension
CPT/HCPCS: 36415; 80053; 83036; 84153; 84403

== ENCOUNTER 2024-10-24 12:20 | Outpatient (CLI) | payer OTHER, MEDICARE, SELFPAY ==
--- NOTE | ~2024-10-24 | CT_ITS ---
CTA chest PE protocol Ordering provider: Kd Pace PA-C History: 69 years Male with . R07.81 - Pleurodynia . Comparison: May 17, 2014 Technique: CT angiogram chest was performed following timed intravenous injection of contrast. Thin s lice axial images and reformatted coronal images were obtained. Three dimensional reformatted images of the chest were also obtained using a [employer] workstation. . Automated exposure control and iterati ve reconstruction technique were employed. The dose-length product was 989.85 mGy-cm. 100 mL Omnipaqu e 350 was given IV. Findings: PULMONARY ARTERIES: Pulmonary embolism is seen in the branches of both pulmonary arteries with small thrombi seen in the left on the right main pulmonary artery. VISUALIZED THORACIC INLET: Normal. MEDIASTINUM: Aorta/coronary arteries: Mild atheromatous disease. Heart/other: The heart is not enlarged. Stranding is seen in the right ventricle. The right ventricl e measures 5 seen compared to the left measuring 3.3 cm. Lymph nodes: No mediastinal or hilar adenopathy. LUNGS: No pulmonary nodules or masses. Left pleural effusion with adjacent atelectasis. No pneumothorax. VISUALIZED UPPER ABDOMEN: the visualized upper abdomen is normal. MUSCULOSKELETAL: Soft tissues: The superficial soft tissues are normal. Bones: Age appropriate degenerative changes of the spine. IMPRESSION: 1. Pulmonary embolism with thrombi in the branches of both pulmonary arteries. Strain is present on the right ventricle. 2. Left basilar atelectasis versus pneumonia with pleural effusion. Physician: Kd Pace PA-C Was notified with the result of the patient at 1:20 PM on October 24, 2024 Reviewed, dictated and finalized at location A. USION TEACHER
[2024-10-24 12:59] LABS: Estimated Glomerular Filt Rate 50
== END 2024-10-24 12:21 | disposition home or self-care (01) ==
PROVIDERS: PCP Family Medicine; Visit Provider Physician Assistant
DX: I26.09 Other pulmonary embolism with acute cor pulmonale (principal); J98.11 Atelectasis; J90 Pleural effusion, not elsewhere classified; Z85.46 Personal history of malignant neoplasm of prostate; Z86.711 Personal history of pulmonary embolism
CPT/HCPCS: 71275; Q9967

== ENCOUNTER 2024-11-05 08:01 | Outpatient (CLI) | payer OTHER, MEDICARE, SELFPAY ==
[2024-11-05 08:54] LABS: Alanine Aminotransferase 54 U/L (6-50); Albumin Level 3.9 g/dL (3.5-5.1); Alkaline Phosphatase 53 U/L (38-126); Anion Gap 3 mmol/L (4-12); Aspartate Amino Transferase 48 U/L (17-59); Bilirubin,Total 0.4 mg/dL (0.2-1.3); Blood Urea Nitrogen 20 mg/dL (9-20); Calcium 8.7 mg/dL (8.4-10.2); Carbon Dioxide 29 mmol/L (22-30); Chloride 110 mmol/L (98-107); Estimated Glomerular Filt Rate > 60; Glucose 84 mg/dL (65-110); Hemoglobin A1C 6.1 % (<5.7); Potassium 4.2 mmol/L (3.4-5.0); Sodium 142 mmol/L (137-145)
[2024-11-05 09:25] LABS: Prostate Specific Antigen < 0.1 ng/mL (< OR = 4.0)
== END 2024-11-05 08:02 | disposition home or self-care (01) ==
PROVIDERS: PCP Family Medicine; Visit Provider Family Medicine
DX: R53.83 Other fatigue (principal); E11.9 Type 2 diabetes mellitus without complications; I10 Essential (primary) hypertension; C61 Malignant neoplasm of prostate
CPT/HCPCS: 36415; 80053; 83036; 84153; 84402; 84403

== ENCOUNTER 2025-04-18 07:55 | Outpatient (CLI) | payer MEDICARE, OTHER, SELFPAY ==
--- OUTSIDE RECORDS SUMMARY | 2025-04-18 08:04 | XMS_ITS | Clinical Summary ---
Author Organization [facility] Address [address] [id number] Care Team Providers Care All Round Butcher Name Role Phone Bridger De Jesus MD Primary Care Provider Hiren Argueta MD Unavailable Varinder Granda MD Unavailable Allergies No known active allergies Medications atorvastatin (LIPITOR) 10 mg tabletIndicati ons:hyperlipid emia Take 1 tablet (10 mg total) by mouth nightly 06/04/20 18 Active lisinopril (PRINIVIL,ZEST RIL) 10 mg tabletIndicati ons:hypertensi on Take 1 tablet (10 mg total) by mouth nightly Active cetirizine (ZyrTEC) 10 mg tabletIndicati ons:Perennial Allergic Rhinitis Take 1 tablet (10 mg total) by mouth nightly Active empagliflozin (JARDIANCE) 25 mg tabletIndicati ons:type 2 diabetes mellitus Take 1 tablet (25 mg total) by mouth every morning 11/08/19 19 Active albuterol HFA (PROVENTIL HFA,VENTOLIN HFA,PROAIR HFA) 90 mcg/actuation inhaler Inhale 1 puff every 6 (six) hours as needed for shortness of breath or wheezing 10/14/20 21 Active TRESIBA 100 unit/mL (3 mL) pen for injectionIndic ations:type 2 diabetes mellitus Inject 0.34 mL (34 Units total) under the skin nightly 11/16/19 22 Active cholecalcifero l (VITAMIN D-3) 3,000 unit tabletIndicati ons:Osteoporos is Take 1 tablet (3,000 Units total) by mouth every morning Active multivitamin (MULTIPLE VITAMINS ORAL)Indicatio ns:supplement Take 1 tablet by mouth every morning Activ e fenofibrate (TRIGLIDE) 160 mg tabletIndicati ons:hyperlipid emia Take 1 tablet (160 mg total) by mouth nightly 11/24/19 23 Active ibuprofen 200 mg tab/cap Take 1 tablet/capsule (200 mg total) by mouth every 6 (six) hours as needed Active Precision Xtra Test strip 05/13/20 23 Active BD Ultra-Fine Orig Pen Needle 29 gauge x 1/2 needle 05/13/20 23 Active Ozempic 0.25 mg or 0.5 mg (2 mg/3 mL) pen injector injection Inject 3 mL (2 mg total) under the skin once a week Thursday07/16/20 23 Active papaverine-phe ntolamine-alpr ostadil (TRIMIX) solution injection 0.15 mL by intracavernosal route once for 1 dose 5 mL 10/05/20 24 Active apixaban (ELIQUIS) 5 mg tabletIndicati ons:deep venous thrombosis Take 2 tablets (10 mg total) by mouth 2 (two) times a day for 7 days, THEN 1 tablet (5 mg total) 2 (two) times a day. 148 tablet 10/27/20 24 Active Active Problems Patient Care Coordination No te Formatting of this note migh t be different from the original. Referring provider: Dr. Argueta Mr. Wayne Kiran is a 65-year-old with lung nodules. Patient has a history of Olla 4 + 4 [id number] prostate cancer status post prostatectomy in 2011 with recurrent disease. He went on to complete salvage radiation therapy in August 2013. He had an undetectable PSA until 2015. On 12/19/20 the patient underwent a Fluciclovine-PET/CT which noted 2 FACBC avid lung nodules in the left upper lobe that appears slightly enlarged from the prior PET in 2019. One nodule was mediastinum measures 9 mm the other nodules in the lung apex and abuts the pleura now measuring 7 mm. On 03/12/2021 the patient underwent a CT of the chest without contrast which showed an unchanged 5 x 7 mm left upper lobe pulmonary nodule which measures 3 mm October 2018 and an unchanged 8 mm left upper lobe pulmonary nodule that measured 6 mm in 2018. Patient is a former smoker. Patient presents today for further surgical evaluation. Review of systems: Genitourinary: Positive for erection difficulties and impotence. EENT: Positive for tinnitus, postnasal drip, sinus problems and sneezing. Musculoskeletal: Positive back pain, joint aches. Cardiovascular: Positive for high blood pressure. Respiratory: Positive for shortness of breath with exertion. All other systems reviewed and are negative. Problem Noted Date Diagnosed Date Mixed hyperlipidemia 10/27/2024 Type 2 diabetes mellitus wit hout complication, without long-term current use of insulin 10/25/2024 Personal history of prostate cancer 10/25/2024 Community acquired pneumonia of left lower lobe of lung 10/25/2024 Acute pulmonary embolism wit h acute cor pulmonale, unspecified pulmonary embolism type 10/24/2024 Assessment & Plan (12/06/2024 2:01 PM DRILL PRESSER): Status post bilateral pulmonary thrombectomy. Patient doing very well minimal if any residual symptoms. Continue anticoagulation follow up PRN. History of hormone therapy 05/07/2022 Secondary malignant neoplasm of lung 05/23/2021 Prostate cancer metastatic to multiple sites (CM S/HCC) 10/21/2016 Cancer Staging:Pathologic stage from 01/01/2012:Stage IV(T2c, N1, cM0) - Signed by Varinder Granda MD on 05/23/2021 Clinical:Stage IV(M1c) - Signed by Varinder Granda MD on 05/23/2021 Immunizations Immunization Administration Dates Next Due Influenza, Quadrivalent, Hig h Dose, Preservative Free, Intrr 08/24/2020 Influenza, Quadrivalent, Spl it, Preservative Free, Intramuscular 08/29/2018,08/28/2018 Influenza, Split 07/12/2013 Influenza, Trivalent, Adjuvanted, Intramuscular 12/01/2019 Influenza, Trivalent, IM (MDV) 08/07/2017,2014 Influenza, Trivalent, Preservative Free, Intramu scular 11/10/2016 Tdap 11/23/2012 Surgical History Surgery Date Site/Laterality Comments PROSTATECTOMY 12/03/2011 - 12/31/2011 Prostatectomy Robotic-Assisted - w/ radiation (Added by TW Conv) SHOULDER SURGERY 11/02/1995 - 11/01/1996 Left URETER SURGERY 11/02/2015 - 11/01/2016 TONSILLECTOMY 11/02/1987 - 11/01/1988 NASAL SEPTUM SURGERY 11/02/2013 - 11/01/2014 SINUS SURGERY 11/02/2013 - 11/01/2014 LASIK 2007 EYE SURGERY 2011 (Cataracts) KNEE ARTHROSCOPY Right PULMONARY EMBOLISM SURGERY 10/25/2024 Mech-thromb truncus & RT middle lobe segmental pulmonary artery. Mech-thromb RT lower lobe segmental pulmonary artery. Mech-thromb RT upper lobe pulmonary artery. Mech-thromb RT main pulmonary artery. Mech-thromb LT lower lobe segmental pulmonary artery. Mech-thromb LT upper lobe segmental pulmonary artery. Mech-thromb LT main pulmonary artery. Medical History Medical History Date Comments Prostate cancer (HCC) DM (diabetes mellitus) (HCC) HTN (hypertension) HLD (hyperlipidemia) Pneumonia DVT (deep venous thrombosis) (HCC) Allergic rhinitis 1979 Dizziness Last week Tinnitus 1975 Sinusitis 1970 HL (hearing loss) 1975 Sleep apnea 2002 Family History Medical History Relation Name Comments Cancer Brother 1 Reed Kiran Cancer Brother 2 Harsha Kiran Sleep apnea Brother 2 Harsha Kiran Snoring Father Reed Kiran Heart failure Mother Sudha Kiran Family history of heart failure - (Added by TW Conv) Cancer Paternal Grandfather C Hao Kiran Prostate cancer Paternal Grandfather C Hao Kiran F amily history of prostate cancer - (Added by TW Conv) Diabetes Paternal Grandmother Jess Magno Diabetes Sister 1 Linda Mobley Diabetes Sister 2 Mirian Espinosa Anesthesia problems Neg Hx Relation Name Status Comments Brother 1 Reed Kiran Brother 2 Harsha Kiran Father Reed Kiran Mother Sudha Kiran Paternal Grandfather Coleman Haokristi Solher Paternal Grandmother [place] Magno Sister 1 Linda Mobley Sister 2 Mirian Espinosa Social History Tobacco Use Types Packs/Day Years Used Date Smoking Tobacco: Former Cigars Q uit: 2010 Smokeless Tobacco: Former Tobacco Cessation:Counseling Given: Not Answered Alcohol Use Standard Drinks/Week Comments Yes 0 (1 standard drink = 0.6 oz pur e alcohol) social [facility] Utilities Answer Date Recorded In the past 12 months has th e electric, gas, oil, or water company threatened to shut off services in your home? No 10/25/2024 Social Connection and Isolat ion Panel [NHANES] Answer Date Recorded In a typical week, how many times do you talk on the phone with family, friends, or neighbors? More than three times a week 10/25/2024 How often do you get togethe r with friends or relatives? More than three times a week 10/25/2024 How often do you attend chur ch or islam services? Never 10/25/2024 Do you belong to any clubs o r organizations such as gnosticism groups, unions, fraternal or athletic groups, or school groups? No 10/25/2024 How often do you attend meet ings of the clubs or organizations you belong to? Never 10/25/2024 Are you , , di vorced, , never , or living with a partner? 10/25/2024 AUDIT-C Answer Date Recorded Q1: How often do you have a drink containing alc ohol? Monthly or less 10/25/2024 Q2: How many drinks containi ng alcohol do you have on a typical day when you are drinking? 1 or 2 10/25/2024 Q3: How often do you have si x or more drinks on one occasion? Never 10/25/2024 Overall Financial Resource Strain (CARDIA) Answe r Date Recorded How hard is it for you to pa y for the very basics like food, housing, medical care, and heating? Not hard at all 10/25/2024 [facility] - Occupational Stress Questionnaire Answer Date Recorded Do you feel stress - tense, restless, nervous, or anxious, or unable to sleep at night because your mind is troubled all the time - these days? Rather much 05/15/2022 Hunger Vital Sign Answer Date Recorded Within the past 12 months, y ou worried that your food would run out before you got the money to buy more. Never true 10/25/20 Within the past 12 months, t he food you bought just didn't last and you didn't have money to get more. Never true 10/25/2024 PRAPARE - Transportation Answer Date Re corded In the past 12 months, has l ack of transportation kept you from medical appointments or from getting medications? No 10/03 In the past 12 months, has l ack of transportation kept you from meetings, work, or from getting things needed for daily living? No 10/25/2024 Housing Stability Vital Sign Answer Sean e Recorded In the last 12 months, was t here a time when you were not able to pay the mortgage or rent on time? No 10/25/2024 In the past 12 months, how m any times have you moved where you were living? 0 10/25/2024 At any time in the past 12 m [place], were you homeless or living in a intermediate (including now)? No 10/25/2024 Personal Safety Answer Date Recorded Have you ever been in or are you currently in a harmful physical or emotional relationship or is someone making you feel afraid or unsafe? 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 Not on file Not on file Not on file Obstetrics History Last Filed Vital Signs Vital Sign Reading Time Taken Comments Blood Pressure 102/65 11/23/2024 8:57 AM DRILL PRESSER Pulse 76 11/23/2024 8:57 AM DRILL PRESSER Temperature 36.6 C (97.9 F) 10/27/2024 10:45 AM DRILL PRESSER Respiratory Rate 22 10/27/2024 10:45 AM DRILL PRESSER Oxygen Saturation 95% 10/27/2024 10:45 AM DRILL PRESSER Inhaled Oxygen Concentration - - Weight 110.7 kg (244 lb) 11/23/2024 8:57 AM DRILL PRESSER Height 177.8 cm (5' 10) 11/23/2024 8:57 AM DRILL PRESSER Body Mass Index 35.01 11/23/2024 8:57 AM DRILL PRESSER Plan of Treatment Health Maintenance Due Date Last Done Comments Albumin Creatinine Ratio, Urine 1954 Colon Cancer Screening-Colonoscopy 1954 Depression Screening 1954 Hepatitis C Screening 1954 Dilated Eye Exam 1954 Foot Exam 1954 Hepatitis B Screening 1972 Pneumococcal vaccine 65+ (1 of 2 - PCV) 1973 Zoster Vaccine (1 of 2) 1973 Lipid Panel 01/07/2017 01/08/2016 Well Visit 65+ 2019 DTaP/Tdap/Td Vaccine (2 - Td or Tdap) 11/23/2022 11/23/2012 Hemoglobin A1C 04/25/2025 10/25/2024 Fall Risk Assessment 10/27/2025 10/27/2024, 04/01/2022, 12/10/2021, Additional history exists eGFR 10/27/2025 10/27/2024, 10/03, 10/25/2024, Additional history exists Abdominal Aortic Aneurysm (A AA) Screen Completed 06/06/2022, 03/18/2022, 10/20/2018, Additional history exists Prostate Cancer Screening-PSA Discontinued , 08/18/2023, 05/27/2023, Additional history exists Influenza Vaccine Completed 10/14/2024, , 12/01/2019, Additional history exists Medical Devices Implanted Type Area Breaker Machine Operator Device Identifier Shelf Expiration Date Model / Serial / Lot [employer] Porp Pollard Prosthesis Ossicular 655 - [id number] Implanted:Qty: 1 on 04/03/2023 by Toribio Hay MD at [facility] [place] Left: Ear [employer] [id number] 02/01/2028 655 / / [id number] [employer] System Closure Repair Femoral Artery Suture Mediated Perclose Prostyle 57454-49 - [id number] Implanted:Qty: 1 on 10/25/2024 by Tashi Alvarez MD at [facility] [employer] 08/01/2026 [id number] / / [id number] [employer] System Closure Repair Femoral Artery Suture Mediated Perclose Prostyle 14974-04 - [id number] Implanted:Qty: 1 on 10/25/2024 by Tashi Alvarez MD at [facility] [employer] 08/01/2026 [id number] / / [id number] Procedures Procedure Name Priority Date/Time Associated Diagnosis Comments EGFR Routine 10/27/2024 2:47 AM DRILL PRESSER HEMOGLOBIN A1C Routine 10/25/2024 2:47 AM DRILL PRESSER PSA DIAGNOSTIC Routine 02/17/2024 7:34 AM CDT Prostate cancer metastatic to multiple sites (HCC) CT CHEST ABDOMEN PELVIS W CONTRAST Schedule Routine, Read Routine (OP Routine) 06/06/2022 12:19 PM CDT Malignant neoplasm of prostate (HCC) SERUM LIPID PANEL Routine 01/08/2016 10: 51 PM DRILL PRESSER from Last 3 Months or Most Recently Relevant to Health Maintenance Results * eGFR (10/27/2024 2:47 AM DRILL PRESSER) eGFR 73 >=60 mL/min/1. 73 m2 Comment: Interpretive Data Reference Interval Normal >/= 90 mL/min/1.73m2 Mildly decreased* 60 - 89 mL/min/1.73m2 Mildly to moderately decreased 45 - 59 mL/min/1.73m2 Moderately to severely decreased 30 - 44 mL/min/1.73m2 Severely decreased 15 - 29 mL/min/1.73m2 Kidney Failure < 15 mL/min/1.73m2 *Relative to young adult level Estimated glomerular filtration rate is determined by the 2020 CKD-EPI equation recommended by the National Kidney Foundation (A Unifying Approach to GFR Estimation: Recommendations of the NKF-ASK Task Force on Reassessing the Inclusion of Race in Diagnosing Kidney Disease, JASN 202). The CKD-EPI equation should not be used for patients with unstable renal function and has not been validated in children and those over 70. Current interpretive data was last reviewed 2021. Blood 10/27/2024 2:47 AM DRILL PRESSER 10/27/2024 3:12 AM DRILL PRESSER us Tashi Alvarez MD LAB BLOOD ORDERABLES Final Result [facility] [address] [facility] [place] [address] * (ABNORMAL) Hemoglobin A1c (10/25/2024 2:47 AM DRILL PRESSER) Hgb A1C 6.1(H) 4.0 - 5.6 % Estimated Average Glucose 128 mg/dL [facility] Comment: The ADA recommends reporting an estimated Average Glucose (eAG) with all Hemoglobin A1c results using the equation derived from a study of 507 normal and diabetic adults. Minority populations were underrepresented and children were not included. (Diabetes Care 31:1933-7091, 2008). The eAG is not equivalent to a fasting glucose. Blood 10/25/2024 2:47 AM DRILL PRESSER 10/25/2024 3:08 AM DRILL PRESSER Phyllis Zimmer CORK FLOOR INSTALLER LAB BLOOD ORDERABLES Fi nal Result Performing Organization Address City/[facility]/ZIP Co de Phone Number [facility] [address] [facility] [place] [address] * PSA diagnostic (02/17/2024 7:34 AM CDT) Pathologist [facility] PSA-Total <0.10 <=5.40 ng/mL Comment: Interpretive Data AGE SEX REFERENCE INTERVAL 0 minutes-150 years Female None 0 minutes-49 years Male None 50-59 years Male 0-3.90 60-69 years Male 0-5.40 70-79 years Male 0-6.20 80-150 years Male 0-6.20 The Alexandra PSA Total assay procedure was used. Results from different manufacturers or methods may not be comparable. Serial testing should be performed using the same method. Current interpretive data last revised 22. Blood 02/17/2024 7:34 AM CDT 02/17/2024 8:05 AM CDT Keiko Contreras NP LAB BLOOD ORDERABLES Final Result [facility] [id number] [facility]. [place] [address] * CT chest abdomen pelvis with contrast (06/06/2022 12:19 PM CDT) Anatomical Region Laterality Modality Body N/A Computed Tomogra phy 06/06/2022 1:22 PM CDT Addenda Addendum by Harsha Romeo MD on 06/06/2022 1:43 PM CDT ADDENDUM Addendum issued at 06/06/2022 1:41 PM by Tricia Calderon M.D.. New skin thickening and subcutaneous fat stranding of the left greater than right lower abdominal soft tissue tissues. Recommend clinical correlation for recent trauma or findings on physical examination. Dictated by: Tricia Calderon M.D. The radiology attending physician has personally reviewed this study, and had reviewed and/or edited this written report and agrees with it. Electronically signed by: Harsha Romeo M.D. Impressions 06/06/2022 1:[address] CT evidence of metastatic disease in the chest abdomen or pelvis. 2. Interval resolution of previously noted FDG avid left lower lobe pleural nodule and pleural nodularity. Dictated by: Tricia Calderon M.D. The radiology attending physician has personally reviewed this study, and had reviewed and/or edited this written report and agrees with it. Electronically signed by: Harsha Romeo M.D. Narrative 06/06/2022 1:23 PM CDT EXAMINATION: CT CHEST ABDOMEN PELVIS W CONTRAST HISTORY: 66-year-old man with prostate cancer diagnosed in 2012 status post prostatectomy and radiation with increasing PSA and FDG avid left lower lobe pulmonary nodule, left chest wall soft tissue nodule, and left pleural nodularity TECHNIQUE: Transaxial computed tomographic images of the chest, abdomen, and pelvis were obtained with intravenous contrast according to the standard protocol after the uneventful administration of 100 mL Opti-Ray 350 intravenous contrast. COMPARISON: PET/CT on 04/29/2022 FINDINGS: Chest: Central airways are patent. Interval resolution of left lower lobe pleural based nodule. Interval resolution of more inferior pleural based nodularity. No pneumothorax or pleural effusion. Heart size is normal without pericardial effusion. Thoracic aorta and main pulmonary artery are normal in caliber. No thoracic lymphadenopathy. Non-distended esophagus. Imaged thyroid gland is normal. Abdomen/pelvis: Hepatic steatosis. No focal hepatic lesion. No intrahepatic or extrahepatic biliary ductal dilation. The portal, superior mesenteric, and splenic veins are patent. Gallbladder, pancreas, spleen, adrenal glands, and kidneys are normal. Abdominal aorta is normal in caliber. Urinary bladder is normal. Postsurgical changes of prostatectomy. Postsurgical changes of a bilateral pelvic dissection. Postsurgical changes in the artificial urethral sphincter device. No abdominal or pelvic lymphadenopathy. Large and small bowel are normal in caliber without evidence of obstruction. Appendix is normal. Omentum and mesentery are unremarkable. No pneumoperitoneum or ascites. No suspicious osseous lesions. No CT correlate for left 8th rib based FDG uptake on prior examination. Procedure Note Harsha Romeo MD - 06/06/2022 EXAMINATION: CT CHEST ABDOMEN PELVIS W CONTRAST HISTORY: 66-year-old man with prostate cancer diagnosed in 2012 status post prostatectomy and radiation with increasing PSA and FDG avid left lower lobe pulmonary nodule, left chest wall soft tissue nodule, and left pleural nodularity TECHNIQUE: Transaxial computed tomographic images of the chest, abdomen, and pelvis were obtained with intravenous contrast according to the standard protocol after the uneventful administration of 100 mL Opti-Ray 350 intravenous contrast. COMPARISON: PET/CT on 04/29/2022 FINDINGS: Chest: Central airways are patent. Interval resolution of left lower lobe pleural based nodule. Interval resolution of more inferior pleural based nodularity. No pneumothorax or pleural effusion. Heart size is normal without pericardial effusion. Thoracic aorta and main pulmonary artery are normal in caliber. No thoracic lymphadenopathy. Non-distended esophagus. Imaged thyroid gland is normal. Abdomen/pelvis: Hepatic steatosis. No focal hepatic lesion. No intrahepatic or extrahepatic biliary ductal dilation. The portal, superior mesenteric, and splenic veins are patent. Gallbladder, pancreas, spleen, adrenal glands, and kidneys are normal. Abdominal aorta is normal in caliber. Urinary bladder is normal. Postsurgical changes of prostatectomy. Postsurgical changes of a bilateral pelvic dissection. Postsurgical changes in the artificial urethral sphincter device. No abdominal or pelvic lymphadenopathy. Large and small bowel are normal in caliber without evidence of obstruction. Appendix is normal. Omentum and mesentery are unremarkable. No pneumoperitoneum or ascites. No suspicious osseous lesions. No CT correlate for left 8th rib based FDG uptake on prior examination. IMPRESSION: 1. No CT evidence of metastatic disease in the chest abdomen or pelvis. 2. Interval resolution of previously noted FDG avid left lower lobe pleural nodule and pleural nodularity. Dictated by: Triciabreanne Calderon M.D. The radiology attending physician has personally reviewed this study, and had reviewed and/or edited this written report and agrees with it. Electronically signed by: Harsha Romeo M.D. Hiren Argueta MD IMG CT PROCEDURES Edit ed Result - Final * (ABNORMAL) Serum lipid panel (01/08/2016 10:51 PM DRILL PRESSER) Cholesterol 140 0 - 200 mg/dl HISTORICAL RESULTS Comment: Interpretive Data Desirable: <200 mg/dL Borderline high: 200-239 mg/dL High: >240 mg/dL Literature Reference: National Cholesterol Education Program (NCEP) Expert Panel on Detection, Evaluation, and Treatment of High Blood Cholesterol in Adults (Adult Treatment Panel III). Circulation 2004; 110:227. Current interpretive data was last revised on 2005. Triglycerides 101 0 - 150 mg/dl HISTORICAL RESULTS Comment: Interpretive Data Desirable: < 150 mg/dL Borderline High: 150 - 199 mg/dL High: > 200 mg/dL Literature Reference: See Cholesterol Current interpretive data was last revised on 07. HDL 30(L) 40 - 199 mg/dl HISTORICAL RESULTS Comment: Interpretive Data Less than 40 mg/dL - low; A major risk factor for heart disease. Greater than or equal to 60 mg/dL - High; considered protective of heart disease. Literature Reference: See Cholesterol Current interpretive data was last revised on 2008. LDL 90 0 - 129 mg/dl HISTORICAL RESULTS Comment: Interpretive Data Optimal: < 100 mg/dL Near Optimal: 100 - 129 mg/dL Borderline High: 130 - 159 mg/dL High: > 160 mg/dL Literature Reference: See Cholesterol Current interpretive data was last revised on 07. Non-HDL cholesterol, calculated 110 mg/dl HISTORICAL RESULTS Comment: Interpretive Data When triglycerides are >200 mg/dL, non-HDL C is a secondary target of therapy, with a goal 30 mg/dL higher than the identified LDL-C goal. Reference: See Cholesterol Reference. Current interpretive data was last revised 2012. Serum 01/08/2016 10:5 1 PM DRILL PRESSER José Sommer MD LAB BLOOD ORDERABLES Final Result HISTORICAL RESULTS from Last 3 Months or Most Recently Relevant to Health Maintenance Insurance FOR LIFE MEDICARE [facility] FOR LIFE MEDICARE Advance Directives For more information, please contact: [phone] * Full Code (Latest Code Status on File) Date Activated Date Inactivated Comments 10/25/2024 2:08 AM 10/27/2024 8:05 PM Care Teams All Round Butcher Relationship Specialty Start Date End Date Bridger De Jesus MD [address] [facility] [address] [facility] [address] [place] [address] PCP - General 12/23/16 Hiren Argueta MD [address] [place] [address] Medical Oncologist/Flag Decorator Medical Oncology 12/20/20 Varinder Granda MD [address] [place] [address] Radiation Oncologist Radiation Oncology 07/28/21
--- OUTSIDE RECORDS SUMMARY | 2025-04-18 08:04 | XMS_ITS | Continuity of Care Document ---
Author Name [facility] Organization [facility] Care Team Providers Care Grocery Buyer Name Role Phone [facility] Unavailable Unavailable Problems Combined list of problems from Department of Defense and Veterans Affairs facilities. It does not include entries that were removed or entered in error. Problem Status Onset Date Problem Type Date of Resolution Comments Source Benign hypertension Active Condition [facility] Bilateral hearing loss Active Condition [facility] Carcinoma of prostate Active Condition Jul 14, 2016 Entered By: GRISEL SON Comment: s/p surgery & radiation [facility] Diabetes mellitus Active Condition [facility] Hyperlipidemia Active Condition [facility] Glaucoma Screening Inactive Condition DoD SINUSITIS Active Condition DoD PROSTATE CANCER Active Condition DoD visit for: issue repeat prescription for medication Inactive Condition DoD HEMORRHOIDS Active Condition DoD red blood in bowel movement (hematochezia) Inactive Condition DoD DIABETES MELLITUS Active Condition DoD visit for: issue repeat prescription Inactive Condition DoD SENSORINEURAL HEARING LOSS Active Condition DoD CATARACT SENILE ANTERIOR SUBCAPSULAR POLAR Active Condition [facility] visit for: refer patient without exam or treatment Inactive Condition DoD DYSMETABOLIC SYNDROME X Active Condition DoD TENDONITIS SUPRASPINATUS Active Condition DoD SHOULDER STRAIN LEFT Inactive Condition DoD SEPTIC BURSITIS Active Condition DoD BURSITIS Active Condition DoD UPPER RESPIRATORY INFECTION ACUTE Inactive Condition DoD SINUSITIS ACUTE Inactive Condition DoD Laboratory Studies Inactive Condition DoD ABNORMAL GLUCOSE Active Condition DoD NORMAL ROUTINE HISTORY AND PHYSICAL ADULT (18-65) Inactive Condition DoD NICOTINE DEPENDENCE Active Condition DoD OBESITY Active Condition DoD SUPERFICIAL INJURY - ABRASION OF CORNEA Active Condition 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 Empiric treatment for possible bacterial/atypi viv as ordered below. f/u 5-7 days if no imprvmt for reeval. DoD AUDITORY NEOPLASM Active Condition DoD Serology Prostate-specific Antigen (PSA) Elevated Active Condition DoD HYPERLIPIDEMIA Active Condition DoD PREDIABETES (IMPAIRED GLUCOSE TOLERANCE) Active Condition vs early DM. Nutritional medicine consult. f/u 1 month, screen HgbA1C, consider further treatment at that time. 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 f/u 1 month to recheck BP DoD NORMAL EXAMINATION Active Condition UTD on colon CA screening (next due 2009). DoD PHARYNGITIS Inactive Condition DoD OTITIS MEDIA Inactive Condition DoD CELLULITIS OF THE RIGHT FIRST TOE Active Condition Bilateral gr eat toes are thickened, red, tender, very curved downward medially and latearally. Has had problems for a long time, removal of right toenail on right foot previously DoD CELLULITIS OF THE LEFT FIRST TOE Inactive Condition DoD Blood Pressure Isolated Elevated Inactive Condition Patienat f eels stressed at home, and at work. Wants to join fitness program, loseweight, and exercise. 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 SD scores were excellent bialterally. Tymps showed normal ECV with limited TM compliance in both ears (rounded). Reflexes absent in both ears. DPOAES absent in both DoD EUSTACHIAN TUBE DYSFUNCTION Active Condition DoD CONJUNCTIVITIS Inactive Condition Avoid visine products. Use hot, wet packs as often as possible. f/u prn DoD UPPER RESPIRATORY INFECTION Inactive Condition get mucinex OTC. Try afrin nasal spray bid for 3 days. Also will renew the Flonase RX DoD Basic Life / Disability Examination Inactive Condition Paperwork completed as requested. No conditions identified to exclude eligibility to be adoptive parent. DoD ALLERGIC RHINITIS Active Condition Re quests refill on Flonase for longstanding AR. DoD NORMAL ROUTINE HISTORY AND PHYSICAL Inactive Condition Mild HTN in pt with no prev hx dx'd HTN. Pt is sedentary, reports he is not careful regarding his diet. Recommend institution of regular mild/mod exercise program, reduce fats in diet, f/u 3 months to recheck BP. Will screen lipids now as well. Test DoD Medications Combined list of outpatient medications from Department of Defense and Veterans Affairs facilities.Medications provided include 1) outpatient medications from the last 15 months, and 2) patient-reported medications. Medication Details Route Status Patient Instructions Prescription Expires Prescription Number Last Dispense Date Ordering Provider Order Date Order Qty Source ATORVASTATI N TAB TAKE BY MOUTH EVERY EVENING ORAL ACTIVE ADELAIDA,DAVID A D 2015 [facility] CEPHALEXIN (CEPHALEXIN MONOHYDRATE ), 500MG, CAPSULE, ORAL, TEVA [place], 500 ea. BOTTLE Active [id number] 2023 40 Pharmac y Data Transac tion Service Facilit y CHOLECALCIF DEREJE 50MCG (2,000UNIT) TAB TAKE ONE TABLET BY MOUTH ONCE A DAY ORAL ACTIVE ADELAIDA,DAVID A D 2015 [facility] ENOXAPARIN SODIUM (enoxaparin sodium), 40MG/0.4ML, SYRINGE, SUBCUT, SANDOZ, .4 ml SYRINGE Cancele d [id number] : 2023 0 Pharmac y Data Transac tion Service Facilit y ENOXAPARIN SODIUM (enoxaparin sodium), 40MG/0.4ML, SYRINGE, SUBCUT, SANDOZ, .4 ml SYRINGE Active [id number] 4 2023 12 Pharmac y Data Transac tion Service Facilit y HALOBETASOL PROPIONATE (HALOBETASO L PROPIONATE) , 0.05%, CREAM(GM), TOPICAL, [facility] 50 g TUBE Cancele d [id number] : 2023 0 Pharmac y Data Transac tion Service Facilit y HALOBETASOL PROPIONATE (HALOBETASO L PROPIONATE) , 0.05%, CREAM(GM), TOPICAL, [facility] 50 g TUBE Active [id number] 4 2023 50 Pharmac y Data Transac tion Service Facilit y HYDROCODONE -ACETAMINOP HEN (HYDROCODON E/ACETAMINO PHEN), 5MG-325MG, TABLET, ORAL, MALLINCKROD T PH, 500 ea. BOTTLE Active [id number] 2023 20 Pharmac y Data Transac tion Service Facilit y HYDROCODONE -ACETAMINOP HEN (HYDROCODON E/ACETAMINO PHEN), 5MG-325MG, TABLET, ORAL, MALLINCKROD T PH, 500 ea. BOTTLE Active [id number] 2023 20 Pharmac y Data Transac tion Service Facilit y HYDROCODONE -ACETAMINOP HEN (HYDROCODON E/ACETAMINO PHEN), 5MG-325MG, TABLET, ORAL, MALLINCKROD T PH, 500 ea. BOTTLE Active [id number] 4 2023 20 Pharmac y Data Transac tion Service Facilit y LISINOPRIL TAB TAKE BY MOUTH ONCE A DAY ORAL ACTIVE ADELAIDA,DAVID A D 2015 [facility] METFORMIN HCL 500MG 24HR TAB,SA TAKE ONE TABLET BY MOUTH ONCE A DAY ORAL ACTIVE ADELAIDA,DAVID A D 2015 [facility] NALOXONE HCL (naloxone HCl), 4 MG, SPRAY, NASAL, [facility], 2 ea. BLIST PACK Active [id number] 2023 2 Pharmac y Data Transac tion Service Facilit y ONDANSETRON HCL (ONDANSETRO N HCL), 4MG, TABLET, ORAL, [facility], 30 ea. BOTTLE Active [id number] 2023 9 Pharmac y Data Transac tion Service Facilit y OXYCODONE-A CETAMINOPHE N (OXYCODONE HCL/ACETAMI NOPHEN), 5MG-325MG, TABLET, ORAL, MALLINKRT PHARM, 500 ea. BOTTLE Active [id number] 4 2023 20 Pharmac y Data Transac tion Service Facilit y SITAGLIPTIN PHOSPHATE 100MG TAB TAKE ONE TABLET BY MOUTH ONCE A DAY ORAL ACTIVE ADELAIDADAVID A D 2015 [facility] Allergies, Adverse Reactions, Alerts Combined list of allergies from Department of Defense and Veterans Affairs facilities. It does not include entries that were removed or entered in error. Substance Category Reaction Severity Reaction type Status Date Reported Comments Source No Known Allergies Drug allergy (disorder) active 06/06/2008 [employer] [place] ([facility] Immunizations Combined list of available immunizations from the Department of Defense and Veterans Affairs facilities. 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 [facility]e red [facility] (NPI=Not Provided) . Partner 43 Lot#: [id number] Mfr: sanofi pasteur; Dosage: [id number] ml [facility] INFLUENZA, TRIVALENT, ADJUVANTED 2019 168 complet ed HISTORICA L INFORMATI ON - FROM OTHER PROVIDER, Partner: [facility]. Administe red by: [facility] (NPI=Not Provided) . Partner 43 Lot#: [id number] Mfr: SEQIRUS [facility] INFLUENZA, INJECTABLE, QUADRIVALENT, PRESERVATIVE FREE 2017 150 complet ed 02, Partner: [facility]. Administe red by: [facility] (NPI=Not Provided) . Partner 43 Lot#: [id number] Mfr: GlaxoSmit hKline [facility] Influenza, seasonal, injectable 2016 ALUL, () Not Given Influenza , seasonal, injectabl e DoD ZOSTER LIVE [address] [facility] TDAP 2015 [address] [facility] Influenza, seasonal, injectable, preservative free 2014 ALUL, () Not Given Influenza , seasonal, injectabl e, preservat jerica free DoD tuberculin skin test; purified protein derivative solution, intradermal 1 2004 Unknown, Provider [id number] Sanofi Pasteur ([facility]) complet ed tuberculi n skin test; purified protein derivativ e solution, intraderm al DoD tetanus and diphtheria toxoids, adsorbed, preservative free, for adult use (2 Lf of tetanus toxoid and 2 Lf of diphtheria toxoid) 1 2002 Unknown, Provider [id number] Sanofi Pasteur ([facility]) complet ed tetanus and diphtheri a toxoids, adsorbed, preservat jerica free, for adult use (2 Lf of tetanus toxoid and 2 Lf of diphtheri a toxoid) DoD tuberculin skin test; purified protein derivative solution, intradermal 1 2001 Unknown, Provider [id number] 96 [facility] ([facility]) complet ed tuberculi n skin test; purified protein derivativ e solution, intraderm al DoD tuberculin skin test; purified protein derivative solution, intradermal 1 1998 Unknown, Provider [id number] [place] ([facility]) complet ed tuberculi n skin test; purified protein derivativ e solution, intraderm al DoD anthrax vaccine 4 1998 Unknown, Provider 24 Transcribed (TRS) complet ed anthrax vaccine DoD yellow fever vaccine 1 1998 Unknown, Provider [id number] Liz[place] ([facility]) complet ed yellow fever vaccine DoD anthrax vaccine 3 1998 Unknown, Provider 24 Transcribed (TRS) complet ed anthrax vaccine DoD anthrax vaccine 2 1997 Unknown, Provider 24 Transcribed (TRS) complet ed anthrax vaccine DoD anthrax vaccine 1 1997 Unknown, Provider 24 Transcribed (TRS) complet ed anthrax vaccine DoD tetanus and diphtheria toxoids, adsorbed, preservative free, for adult use (2 Lf of tetanus toxoid and 2 Lf of diphtheria toxoid) 1 1997 Unknown, Provider [id number] [place] ([facility]) complet ed tetanus and diphtheri a toxoids, adsorbed, preservat jerica free, for adult use (2 Lf of tetanus toxoid and 2 Lf of diphtheri a toxoid) DoD influenza virus vaccine, whole virus 1 1997 Unknown, Provider [id number] Lizbeth ([facility]) complet ed influenza virus vaccine, whole virus DoD typhoid vaccine, parenteral, other than acetone-kille d, dried 1 1997 Unknown, Provider 41 Transcribed (TRS) complet ed typhoid vaccine, parentera l, other than acetone-k illed, dried DoD tuberculin skin test; purified protein derivative solution, intradermal 1 1997 Unknown, Provider [id number] [place] ([facility]) complet ed tuberculi n skin test; purified protein derivativ e solution, intraderm al DoD meningococcal polysaccharid e vaccine (MPSV4) 1 1996 Unknown, Provider [id number] Lizbeth (CON) complet ed meningoco ccal polysacch aride vaccine (MPSV4) DoD hepatitis A vaccine, adult dosage 2 1996 Unknown, Provider [id number] Lizbeth (CON) complet ed hepatitis A vaccine, adult dosage DoD hepatitis B vaccine, adult dosage 3 1995 Unknown, Provider 43 Transcribed (TRS) complet ed hepatitis B vaccine, adult dosage DoD hepatitis A vaccine, adult dosage 2 1995 Unknown, Provider 52 Transcribed (TRS) complet ed hepatitis A vaccine, adult dosage DoD hepatitis B vaccine, adult dosage 4 1995 Unknown, Provider 43 () complet ed hepatitis B vaccine, adult dosage DoD hepatitis A vaccine, adult dosage 4 1995 Unknown, Provider 52 () complet ed hepatitis A vaccine, adult dosage DoD measles, mumps and rubella virus vaccine 1 1989 Unknown, Provider 03 Transcribed (TRS) complet ed measles, mumps and rubella virus vaccine DoD yellow fever vaccine 4 1988 Unknown, Provider 37 () complet ed yellow fever vaccine DoD tetanus and diphtheria toxoids, adsorbed, preservative free, for adult use (2 Lf of tetanus toxoid and 2 Lf of diphtheria toxoid) 4 1987 Unknown, Provider 09 () complet ed tetanus and diphtheri a toxoids, adsorbed, preservat jerica free, for adult use (2 Lf of tetanus toxoid and 2 Lf of diphtheri a toxoid) DoD trivalent poliovirus vaccine, live, oral 5 1978 Unknown, Provider 02 () complet ed trivalent polioviru s vaccine, live, oral DoD trivalent poliovirus vaccine, live, oral 1 1978 Unknown, Provider 02 () complet ed trivalent polioviru s vaccine, live, oral DoD trivalent poliovirus vaccine, live, oral 1 1978 Unknown, Provider 02 Transcribed (TRS) complet ed trivalent polioviru s vaccine, live, oral DoD Encounters Combined list of: 1) Encounters from Department of Veterans Affairs facilities going backup to the last 18 months, not all VA inpatient encounters are included; 2) Encounters from the Department of Defense facilities going backup to 280 months. Location Location Details Encounter Type Encounter Number Reason For Visit Attending Provider ADM Date DC Date Status Disposition Source [address] [place] [address] [employer] [facility] [place] [place]Fam danielle Practice Non-GME FHI2) OUTPATIENT [id number] physica l male turning 49 KEYONNA PIÑA Dexter 10/09 Released w/o Limitations [facility] [employer] [facility] [place] [place]F amily Practic e Non-GME FHI2) [address] [place] [address] [employer] [facility] [place] [place]Fam danielle Practice Non-GME FHI2) OUTPATIENT [id number] sinus infecti on KEYONNA PIÑA 11/28 Released w/o Limitations [address] [place] [address] [employer] ([facility]F amily Practic e Non-GME FHI2) [address] [place] [address] [employer] ([facility]Fam danielle Practice Non-GME FHI2) OUTPATIENT [id number] physica l for [facility] KEYONNA PIÑA Dexter 12/25 Released w/o Limitations [address] [place] [address] [employer] [facility] [place] [place]F amily Practic e Non-GME FHI2) [address] [place] [address] [employer] [facility] [place] [place]Fam danielle Practice Non-GME FHI2) OUTPATIENT [id number] sinis infecti on DARLENE VARGAS 12/15 Released w/o Limitations [address] [place] [address] [employer] [facility] [place] [place]F amily Practic e Non-GME FHI2) [address] [place] [address] [place] [employer] [facility] [place] [place])(Aud iology) OUTPATIENT [id number] [facility] ed hearing SEBAS GIRON Yojana 12/24 Released w/o Limitations [facility] [employer] [facility] [place] [place]A udiolog y) [address] [place] [address] [employer] [facility] [place] [place]Fam danielle Practice Non-GME FHI2) OUTPATIENT [id number] LUIS-ALEXY CONNELL 07/01 Released w/o Limitations [address] [place] [address] [employer] [facility] [place] [place]F amily Practic e Non-GME FHI2) [address] [place] [address] [employer] [facility] [place] [place]) OUTPATIENT [id number] EAR INFECTI ON. ANA GARCIA KHUSHBU 12/31 Released w/o Limitations [facility] [place] ([facility]A [facility]) [address] [place] [address] [employer] [facility] [place] [place])([facility] danielle Practice Non-GME FHI2) OUTPATIENT [id number] check up KEYONNA PIÑA 08/26 Released w/o Limitations [address] [place] [address] [employer] [facility] [place] [place]F amily Practic e Non-GME FHI2) [address] [place] [address] [employer] [facility] [place] [place] danielle Practice Non-GME FHI2) TELE CONSULT [id number] Needs 40 min f/u with Dr. Piña to review labs SUNI SOTO 09/02[facility] [employer] [facility] [place] [place])(F amily Practic e Non-GME FHI2) [address] [place] [address] [place] [facility] [place] [place])([facility] danielle Practice Non-GME FHI2) OUTPATIENT [id number] Growth in ear canal KEYONNA PIÑA 09/08 Released w/o Limitations [address] [place] [address])(F amily Practic e Non-GME FHI2) [address] [place] [address] [place] [facility] [place] [place] FHI2) OUTPATIENT [id number] PNEUMON IA KEYONNA PIÑA 11/03 Released w/o Limitations [address] [place] [address] [place] [facility] [place] [place]F amily Practic e Non-GME FHI2) [address] [place] [address] [employer] [facility] [place] [place])([facility] danielle Practice Non-GME FHI2) OUTPATIENT [id number] skin tags CHRISTIANO MALLORY 03/20 Released w/o Limitations [address] [place] [address] [employer] [facility] [place] [place]F amily Practic e Non-GME FHI2) [address] [place] [address] [employer] [facility] [place] [place])([facility] danielle Practice Non-GME FHI2) OUTPATIENT [id number] skin tag removal CHRISTIANO MALLORY 04/24 Released w/o Limitations [address] [place] [address] [employer] ([facility])(F amily Practic e Non-GME FHI2) [address] [place] [address] [employer] [facility] [place] [place]Fam danielle Practice Non-GME FHI1) OUTPATIENT [id number] hm reactio n to spider bite per pt KINDRA CELESTIN 04/25 Released w/o Limitations [address] [place] [address] [employer] ([facility])(F amily Practic e Non-GME FHI1) [address] [place] [address] [employer] [facility] [place] [place]Fam danielle Practice Non-GME FHI1) TELE CONSULT [id number] call back lab result SUNI SOTO Juan Manuel 05/[address] [place] [address] [employer] ([facility]F amily Practic e Non-GME FHI1) [address] [place] [address] [employer] [facility] [place] [place]Fam danielle Practice Non-GME FHI2) TELE CONSULT [id number] referra juan manuel piña SUNI SOTO L 06/[address] [place] [address] [employer] [facility] [place] [place]F amily Practic e Non-GME FHI2) [address] [place] [address] [employer] [facility] [place] [place]Fam danielle Practice Non-GME FHI2) OUTPATIENT [id number] knee pain... .[phone] [id number] KESHAV PIÑA 11/23 Released w/o Limitations [address] [place] [address] [place] [employer] [facility] [place] [place]F amily Practic e Non-GME FHI2) [address] [place] [address] [employer] [facility] [place] [place] danielle Practice Non-GME FHI2) TELE CONSULT [id number] Rad results -- JORGE Hearn 12/[address] [place] [address] [place] [employer] ([facility])(F amily Practic e Non-GME FHI2) [address] [place] [address] [employer] ([facility])(Fam danielle Med Tm B Non-AD BCC) OUTPATIENT [id number] eye is irritat ed [phone] DULCE RUBY 12/21 Released w/o Limitations [address] [place] [address] [employer] ([facility]F amily Med Tm B Non-AD BCC) [address] [place] [address] [employer] [facility] [place] [place]Phy sical Therapy) OUTPATIENT [id number] joint pain, localiz ed in the knee KASI BIANCHI 12/26 Released w/o Limitations [address] [place] [address] [employer] ([facility])(P hysical Therapy ) [address] [place] [address] [employer] [facility] [place] [place]Fam danielle Med Tm B Non-AD BCC) TELE CONSULT [id number] no acute appt avail/O BERNARDA Antunez 08/[address] [place] [address] [place] ([facility]F amily Med Tm B Non-AD BCC) [address] [place] [address] [place] ([facility])(Fam danielle Med Tm B Non-AD BCC) TELE CONSULT [id number] RX-SAHIL Kelsey 10/[address] [place] [address] [place] ([facility]F amily Med Tm B Non-AD BCC) [address] [place] [address] [place] ([facility]Fam danielle Med Tm B Non-AD BCC) OUTPATIENT [id number] New referra l for sleep apnia KESHAV PIÑA 10/05 Released w/o Limitations [address] [place] [address] [employer] [place] ([facility]F amily Med Tm B Non-AD BCC) [address] [place] [address] Group [employer] [place] ([facility] [place]Fam danielle Med Tm B Non-AD BCC) TELE CONSULT [id number] psa test result BERNARDA CLAUDIO 10/[address] [place] [address] [place] ([facility]F amily Med Tm B Non-AD BCC) [address] [place] [address] [employer] [place] ([facility]War rior Op Med Cln Tm A Ad) OUTPATIENT [id number] poss. sinus infecti on [phone] MARIO GREEN 02/08 Released w/o Limitations [address] [place] [address] [place] ([facility]W arrior Op Med Cln Tm A Ad) [address] [place] [address] [place] ([facility]Fam dnaielle Med Tm B Non-AD BCC) OUTPATIENT [id number] needs referra l to urology renewed KESHAV PIÑA 05/07 Released w/o Limitations [address] [place] [address] [employer] [place] ([facility]F amily Med Tm B Non-AD BCC) [address] [place] [address] [employer] [place] ([facility] [place])(Fam danielle Med Tm B Non-AD BCC) TELE CONSULT [id number] rad result - PCM BERNARDA Live 05/[address] [place] [address] [place] ([facility] [place])(F amily Med Tm B Non-AD BCC) [address] [place] [address] [employer] ([facility] [place])(Fam danielle Med Tm B Non-AD BCC) OUTPATIENT [id number] fever.. .[id number] DULCE RUBY 08/13 Released w/o Limitations [address] [place] [address] [employer] ([facility]F amily Med Tm B Non-AD BCC) [address] [place] [address] [employer] ([facility])(Sco tt [facility] Team 3) OUTPATIENT [id number] left elbow CHAMP FAJARDO 08/22 Released w/o Limitations [address] [place] [address] [employer] ([facility])(S cott [facility] Team 3) [address] [place] [address] [employer]LE[employer] ([facility])(Fam danielle Med Tm B Non-AD BCC) OUTPATIENT [id number] infecti on KESHAV PIÑA 08/26 Released w/o Limitations [address] [place] [address] Group [employer] ([facility]F amily Med Tm B Non-AD BCC) [address] [place] [address] [employer] ([facility])(Fam danielle Med Tm B Non-AD BCC) OUTPATIENT [id number] left shouler pain [phone] KESHAV PIÑA 12/11 Released w/o Limitations [address] [place] [address] [employer] ([facility]F amily Med Tm B Non-AD BCC) [address] [place] [address] [employer] ([facility]Fam danielle Med Tm B Non-AD BCC) TELE CONSULT [id number] Lab Results BERNARDA CLAUDIO 12/12 Referred for Appointment [address] [place] [address] [place] ([facility])(F amily Med Tm B Non-AD BCC) [address] [place] [address] [employer] ([facility])(Fam danielle Med Tm B Non-AD BCC) OUTPATIENT [id number] follow up abnorma l labs/ne eds referra KESHAV Storey 12/30 Released w/o Limitations [address] [place] [address] [employer] ([facility])(F amily Med Tm B Non-AD BCC) [address] [place] [address] [employer] ([facility])(Fam danielle Med Tm B Non-AD BCC) TELE CONSULT [id number] meloxic am not at pharmac y and somethi ng about an acu check [phone] BERNARDA CLAUDIO 01/01 Referred for Appointment [address] [place] [address] Group [employer] ([facility])(F amily Med Tm B Non-AD BCC) [address] [place] [address] [employer] ([facility])(Fam danielle Med Tm B Non-AD BCC) TELE CONSULT [id number] Referra aliya Piña cad tlt SAHIL REYNA 01/[address] [place] [address] [place] ([facility])(F amily Med Tm B Non-AD BCC) [address] [place] [address] [employer] ([facility])(Fam danielle Med Tm B Non-AD BCC) TELE CONSULT [id number] Referra l Request Optomet ernie - Isabella/Waldo [phone] /BERNARDA Strong 02/[address] [place] [address] [employer] ([facility])(F amily Med Tm B Non-AD BCC) [address] [place] [address] [employer] ([facility])(Fam danielle Med Tm B Non-AD BCC) TELE CONSULT [id number] T con for referra l Dr Piña phone [phone] BERNARDA CLAUDIO 03/[address] [place] [address] [employer] ([facility])(F amily Med Tm B Non-AD BCC) [address] [place] [address] [employer] ([facility])(Fam danielle Med Tm B Non-AD BCC) TELE CONSULT [id number] Tyra from Dr menjivar is wants to discuss MRI results [phone] BERNARDA CLAUDIO 03/[address] [place] [address] [employer] ([facility])(F amily Med Tm B Non-AD BCC) [address] [place] [address] [employer] ([facility])(Fam danielle Med Tm B Non-AD BCC) OUTPATIENT [id number] Follow up on audiolo gy KESHAV Roger 04/17 Released w/o Limitations [address] [place] [address] [employer] ([facility])(F amily Med Tm B Non-AD BCC) [address] [place] [address] [employer] [place] ([facility])(Fam danielle Med Tm B Non-AD BCC) TELE CONSULT [id number] Routine appt needed/ Isabella/BERNARDA Elias 05/[address] [place] [address] [employer] ([facility])(F amily Med Tm B Non-AD BCC) [address] [place] [address] [employer] ([facility])(Fam danielle Med Tm B Non-AD BCC) TELE CONSULT [id number] Lab request - Isabella - [phone] - BENNY Delong 06/[address] [place] [address] [employer] ([facility])(F amily Med Tm B Non-AD BCC) [address] [place] [address] [employer] ([facility])(Fam danielle Med Tm B Non-AD BCC) TELE CONSULT [id number] med refills [phone] or [phone] YAW CANAS 06/[address] [place] [address] [employer] [place] ([facility])(F amily Med Tm B Non-AD BCC) [address] [place] [address] [employer] [place] ([facility])(Fam danielle Med Tm B Non-AD BCC) TELE CONSULT [id number] Lab results MISSAEL YAW A 07/[address] [place] [address] [employer] ALEJANDRAElizabeth ([facility])(F amily Med Tm B Non-AD BCC) [address] [place] [address] [employer] [place] ([facility])(Fam danielle Med Tm B Non-AD BCC) OUTPATIENT [id number] F/u abnorma l labs, Hgb A1C=6.3 KESHAV PIÑA 08/15 Released w/o Limitations [address] [place] [address] [employer] ALEJANDRAElizabeth ([facility])(F amily Med Tm B Non-AD BCC) [address] [place] [address] [employer] ([facility])(War rior Op Med Cln Tm A Ad) OUTPATIENT [id number] hemorrh oids [phone] ADRIAN HAY 08/25 Released w/o Limitations [address] [place] [address] [employer] [place] ([facility])(W arrior Op Med Cln Tm A Ad) [address] [place] [address] [employer] ([facility])(Fam danielle Med Tm B Non-AD BCC) TELE CONSULT [id number] Refill on Meds SAHIL REYNA 08/[address] [place] [address] [employer] [place]LEJANDRA[place] ([facility])(F amily Med Tm B Non-AD BCC) [address] [place] [address] [employer] ([facility])(Fam danielle Med Tm B Non-AD BCC) TELE CONSULT [id number] Medicat ion Refill- Isabella/ /SAHIL Calero 09/[address] [place] [address] [employer]LE[employer] ([facility])(F amily Med Tm B Non-AD BCC) [address] [place] [address] [employer] ([facility])(Fam danielle Med Tm B Non-AD BCC) TELE CONSULT [id number] Med refill - Isabella - [phone] [address] [place] [address] BENNY WOODS 10/[address] [place] [address] [employer]LE[employer] ([facility])(F amily Med Tm B Non-AD BCC) [address] [place] [address] [employer] ([facility])(Fam danielle Med Tm B Non-AD BCC) TELE CONSULT [id number] test results BENNY Lincoln 11/[address] [place] [address] Warren [facility])(F amily Med Tm B Non-AD BCC) [address] [place] [address] Warren [facility])(Fam danielle Med Tm B Non-AD BCC) TELE CONSULT [id number] CT and bone scan/Ya salbador/314 .220.03 51c/mnm BENNY WOODS R 11/[address] [place] [address] Warren [facility])(F amily Med Tm B Non-AD BCC) [address] [place] [address] [facility] ([facility])(Fam danielle Med Tm B Non-AD BCC) OUTPATIENT [id number] sinus congest ion/cou gh/feve r since last night KESHAV PIÑA 11/28 Released w/o Limitations [address] [place] [address] [facility] ([facility])(F amily Med Tm B Non-AD BCC) [address] [place] [address] [facility])(Fam danielle Med Tm B Non-AD BCC) TELE CONSULT [id number] Notes Entered by: FRED VELASQUEZ 05 Dec 2011 1008 ------- ------- ------- ------- -- labs/Ozzy son/220 .0351/m SAHIL Lewis 12/[address] [place] [address] [facility] ([facility])(F amily Med Tm B Non-AD BCC) [address] [place] [address] Warren [facility])(War rior Op Med Cln Tm A Ad) TELE CONSULT [id number] Notes Entered by: ALEX BATES 19 Jan 2012 1415 ------- ------- ------- ------- -- Please advise - Isabella - [phone] - YAIMA Pinzon 01/[address] [place] [address] [facility] ALEJANDRA ([facility]W arrior Op Med Cln Tm A Ad) [address] [place] [address] Warren [facility])(Fam danielle Med Tm B Non-AD BCC) TELE CONSULT [id number] Notes Entered by: THOMAS KEY 21 Jan 2012 0914 ------- ------- ------- ------- -- Pt was seen at ER and was assign a new referra laure wylies script. OSWALDO SETHI 01/[address] [place] [address] Warren [facility])(F amily Med Tm B Non-AD BCC) [address] [place] [address] Warren [facility])(Fam danielle Med Tm B Non-AD BCC) TELE CONSULT [id number] Notes Entered by: JEOVANNY JIMENEZ 03 Feb 2012 1549 ------- ------- ------- ------- -- Referra juan manuel hugo tlt OSWALDO SETHI 02/[address] [place] [address] [place] ([facility]F amily Med Tm B Non-AD BCC) [facility] Outpatient Encounter [id number] 03/09 [facility] Outpatient Encounter [id number] 07/09 [facility] Outpatient Encounter [id number] SUMA DAMIAN M 09/01 [facility] Procedures Combined list of: 1) Procedures from Department of Veterans Affairs facilities going back up to thelast 18 months, not all VA non-surgical procedures are included; 2) All procedures from the Department of Defense facilities. Procedure Procedure Type Code Date Perfomer Comments Sourc e TELE ASSESS & MGT SRV PROV QUAL NONPHYS HLTH CARE PRO TO EST PAT,PARENT,GUARD NOT ORIG REL ASSESS & MGT SRV PROV W/IN PREV 7 DAYS NOR LEAD ASSESS & MGT SRV/PX W/IN NXT 24 HR/SOON APT;5-10 MIN MED DIS 12/05/2011 [facility] TELE ASSESS & MGT SRV PROV QUAL NONPHYS HLTH CARE PRO TO EST PAT,PARENT,GUARD NOT ORIG REL ASSESS & MGT SRV PROV W/IN PREV 7 DAYS NOR LEAD ASSESS & MGT SRV/PX W/IN NXT 24H/SOON APT; 11-20 MIN MED DIS 11/20/2011 [facility] TELE ASSESS & MGT SRV PROV QUAL NONPHYS HLTH CARE PRO TO EST PAT,PARENT,GUARD NOT ORIG REL ASSESS & MGT SRV PROV W/IN PREV 7 DAYS NOR LEAD ASSESS & MGT SRV/PX W/IN NXT 24H/SOON APT; 11-20 MIN MED DIS 11/04/2011 [facility] TELE ASSESS & MGT SRV PROV QUAL NONPHYS HLTH CARE PRO TO EST PAT,PARENT,GUARD NOT ORIG REL ASSESS & MGT SRV PROV W/IN PREV 7 DAYS NOR LEAD ASSESS & MGT SRV/PX W/IN NXT 24H/SOON APT; 11-20 MIN MED DIS 10/28/2011 [facility] TELE ASSESS & MGT SRV PROV QUAL NONPHYS HLTH CARE PRO TO EST PAT,PARENT,GUARD NOT ORIG REL ASSESS & MGT SRV PROV W/IN PREV 7 DAYS NOR LEAD ASSESS & MGT SRV/PX W/IN NXT 24 HR/SOON APT;5-10 MIN MED DIS 09/01/2011 [facility] TELE ASSESS & MGT SRV PROV QUAL NONPHYS HLTH CARE PRO TO EST PAT,PARENT,GUARD NOT ORIG REL ASSESS & MGT SRV PROV W/IN PREV 7 DAYS NOR LEAD ASSESS & MGT SRV/PX W/IN NXT 24 HR/SOON APT;5-10 MIN MED DIS 08/25/2011 [facility] TELE ASSESS & MGT SRV PROV QUAL NONPHYS HLTH CARE PRO TO EST PAT,PARENT,GUARD NOT ORIG REL ASSESS & MGT SRV PROV W/IN PREV 7 DAYS NOR LEAD ASSESS & MGT SRV/PX W/IN NXT 24 HR/SOON APT;5-10 MIN MED DIS 06/13/2011 [facility] TELE ASSESS & MGT SRV PROV QUAL NONPHYS HLTH CARE PRO TO EST PAT,PARENT,GUARD NOT ORIG REL ASSESS & MGT SRV PROV W/IN PREV 7 DAYS NOR LEAD ASSESS & MGT SRV/PX W/IN NXT 24H/SOON APT; 11-20 MIN MED DIS 03/18/2011 [facility] TELE ASSESS & MGT SRV PROV QUAL NONPHYS HLTH CARE PRO TO EST PAT,PARENT,GUARD NOT ORIG REL ASSESS & MGT SRV PROV W/IN PREV 7 DAYS NOR LEAD ASSESS & MGT SRV/PX W/IN NXT 24 HR/SOON APT;5-10 MIN MED DIS 03/03/2011 [facility] TELE ASSESS & MGT SRV PROV QUAL NONPHYS HLTH CARE PRO TO EST PAT,PARENT,GUARD NOT ORIG REL ASSESS & MGT SRV PROV W/IN PREV 7 DAYS NOR LEAD ASSESS & MGT SRV/PX W/IN NXT 24H/SOON APT; 11-20 MIN MED DIS 01/31/2011 [facility] SELF-CARE/HOME MANAGMENT TRAIN (EG,ACT OF DAILY LIVING (ADL) &COMPENSAT TRAIN,MEAL PREPARATION,SAFETY PROCS,AND INSTRUCT IN USE OF ASST TECHNOLOGY DEV/ADPT EQUIP) DIR ONE-ON-ONE CONT,EA 15 MINUTES 12/26/2008 [facility] SHAVING OF EPIDERMAL OR DERMAL LESION, SINGLE LESION, TRUNK, ARMS OR LEGS; LESION DIAMETER 0.5 CM OR LESS 04/24/2008 [facility] ACOUSTIC REFLEX TESTING, THRESHOLD 12/23/2005 [facility] PHYSICAL THERAPY EVALUATION 09/26/2003 [facility] ELECTROCARDIOGRAM, ROUTINE ECG WITH AT LEAST 12 LEADS; TRACING ONLY, WITHOUT INTERPRETATION AND REPORT 08/07/2003 [facility] SPIROMETRY, INCLUDING GRAPHIC RECORD, TOTAL AND TIMED VITAL CAPACITY, EXPIRATORY FLOW RATE MEASUREMENT(S), WITH OR WITHOUT MAXIMAL VOLUNTARY VENTILATION 02/08/2003 [facility] NONINVASIVE EAR OR PULSE OXIMETRY FOR OXYGEN SATURATION; SINGLE DETERMINATION 01/11/2003 [facility]D NONINVASIVE EAR OR PULSE OXIMETRY FOR OXYGEN SATURATION; SINGLE DETERMINATION 01/05/2003 [facility] REMOVAL OF IMPLANTED DEVICES FROM SCAPULA, CLAVICLE, AND THORAX (RIBS AND STERNUM) 08/11/1996 [facility] OPEN REDUCTION OF DISLOCATION OF SHOULDER 05/13/1996 [facility] Non-Physician Phone Call To Patient/Provider Brief (5-10min) Non-Physician Phone Call To Patient/Provider Brief (5-10min) [phone] 12/08/2011 SAHIL REYNA [facility] Non-Physician Phone Call To Pt/Provider Intermed (11-20 min) Non-Physician Phone Call To Pt/Provider Intermed (11-20 min) [phone] 11/24/2011 BENNY WOODS [facility] Non-Physician Phone Call To Pt/Provider Intermed (11-20 min) Non-Physician Phone Call To Pt/Provider Intermed (11-20 min) [phone] 11/04/2011 BENNY WOODS Non-Physician Phone Call To Pt/Provider Intermed (11-20 min) Non-Physician Phone Call To Pt/Provider Intermed (11-20 min) [phone] 10/29/2011 BENNY WOODS Non-Physician Phone Call To Patient/Provider Brief (5-10min) Non-Physician Phone Call To Patient/Provider Brief (5-10min) [phone] 09/04/2011 SAHIL REYNA Non-Physician Phone Call To Patient/Provider Brief (5-10min) Non-Physician Phone Call To Patient/Provider Brief (5-10min) [phone] 08/25/2011 SAHIL REYNA Non-Physician Phone Call To Patient/Provider Brief (5-10min) Non-Physician Phone Call To Patient/Provider Brief (5-10min) [phone] 06/16/2011 BENNY WOODS Non-Physician Phone Call To Pt/Provider Intermed (11-20 min) Non-Physician Phone Call To Pt/Provider Intermed (11-20 min) [phone] 03/18/2011 BERNARDA CLAUDIO Non-Physician Phone Call To Patient/Provider Brief (5-10min) Non-Physician Phone Call To Patient/Provider Brief (5-10min) [phone] 03/03/2011 BERNARDA CALUDIO Non-Physician Phone Call To Pt/Provider Intermed (11-20 min) Non-Physician Phone Call To Pt/Provider Intermed (11-20 min) [phone] 02/04/2011 SAHIL REYNA Phys Therapy Education Self Care Training - Per 15 Minutes Phys Therapy Education Self Care Training - Per 15 Minutes [id number] 12/26/2008 KASI BIANCHI Physical Medicine Physical Therapy Evaluation Physical Medicine Physical Therapy Evaluation [id number] 12/26/[address] Supervised Injection Subcutaneous Supervised Injection Subcutaneous 02000 04/25/[address]Supervised Specimen Handling / Transfer: Office To Lab -Supervised Specimen Handling / Transfer: Office To Lab [id number] 04/25/2008 CHRISTIANO MALLORY Shaving Of Lesion Arms Up to .5cm Shaving Of Lesion Arms Up to .5cm 55021 04/25/2008 CHRISTIANO MALLORY Shaving Of Lesion Legs Up to .5cm Shaving Of Lesion Legs Up to .5cm [id number] 04/25/2008 CHRISTIANO MALLORY [facility] Comprehensive Audiometry Comprehensive Audiometry 36790 12/24/2005 SEBAS GIRON [facility] Tympanometry Tympanometry 51315 12/24/2005 AXEL GIRON [facility] Evoked Otoacoustic Mayra ions Diagnostic Evaluation 12/24/2005 SEBAS GIRON [facility] Acoustic Reflex Testing 12/24/2005 SEBAS GIRON [facility] Social History Combined list of available smoking, tobacco, and other social history from Department of Defense and Veterans Affairs facilities. Social History Type Response Date Comment Sour e Tobacco smoking status NHIS QUIT TOBACCO >7 YEARS AGO 07/14/2016 [facility] This section is an empty social history section. [facility] Advance Directives List of completed, amended, or rescinded Advance Directives on record at Department of Veterans Affairs facilities. An actual copy of the Directive is not included. Date Advance Directive Provider Source 03/31/2017 ADVANCE DIRECTIVE DISCUSSION [facility]
--- OUTSIDE RECORDS SUMMARY | 2025-04-18 08:04 | XMS_ITS | Encounter Summary ---
Author Organization [facility] [employer] [facility] Address [address] [place] [address] Phone Care Team Providers Care Railroad Car Cleaner Name Role Phone Bridger De Jesus MD Primary Care Provider Hiren Argueta MD Unavailable [phone] Varinder Granda MD Unavailable Reason for Visit * Reason Onset Date Comments SCHEDULE UPDATE 05/16/2021 Encounter Details Date Type Department Care Team (Late st Contact Info) Description 05/16/2021 Telephone [facility] Oncology [address] [place] [address] Krystyna Valenzuela, [facility] SCHEDULE UPDATE Social History Tobacco Use Types Packs/Day Years Used Date Smoking Tobacco: Former Cigars Q uit: 2010 Smokeless Tobacco: Former Alcohol Use Standard Drinks/Week Comments Yes 0 (1 standard drink = 0.6 oz pur e alcohol) social Sex and Gender Information Value Date Recorded Sex Assigned at Not on file Legal 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 Gender Identity Not on file Sexual Orientation Not on file 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 file Not on file Not on file documented as of this encounter Plan of Treatment Not on file documented as of this encounter Visit Diagnoses Not on filedocumented in this encounter Care Teams Railroad Car Cleaner Relationship Specialty Start Date End Date Bridger De Jesus MD [address] [place] [address] PCP - General 12/23/16 Hiren Argueta MD [address] [place] [address] Medical Oncologist/Retail Product Demo Specialist Medical Oncology 12/20/20 Varinder Granda MD [address] [place] [address] Radiation Oncologist Radiation Oncology 07/28/21 documented as of this encounter
--- OUTSIDE RECORDS SUMMARY | 2025-04-18 08:04 | XMS_ITS ---
Author Organization [facility] Address [address] [id number] Care Team Providers Care Field Traffic Investigator Name Role Phone Bridger De Jesus MD Primary Care Provider Hiren Argueta MD Unavailable Varinder Granda MD Unavailable Active Problems Patient Care Coordination No te Formatting of this note migh t be different from the original. Referring provider: Dr. Argueta Mr. Wayne Kiran is a 65-year-old with lung nodules. Patient has a history of Dayana 4 + 4 [id number] prostate cancer status post prostatectomy in 2011 with recurrent disease. He went on to complete salvage radiation therapy in August 2013. He had an undetectable PSA until 2016. On 12/19/20 the patient underwent a Fluciclovine-PET/CT [...] 10/24/2024 Assessment & Plan (12/06/2024 2:01 PM APPLE PRESS OPERATOR): Status post bilateral pulmonary thrombectomy. Patient doing [...] Signed by Varinder Granda MD on 05/23/2021 Current Treatment and Therapy Plans denosumab (PROLIA) Injection* Plan Start Date:07/30/2022 Plan Provider:Hiren Argueta MD Linked Problems Prostate cancer metastatic t o multiple sites (HCC)History of hormone therapy Treatment Medications No medications scheduled. 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) Treatment Medications Current Day (Day 1 , Cycle 3 - Planned for 03/25/2023) Next Day (Day 1, Cycle 4 - Planned for 06/17/2023) leuprolide (3 month) (ELIGARD)leuprolide (ELIGARD) leuprolide (3 month) (ELIGARD) subcutaneous injection 22.5 mg leuprolide (3 month) (ELIGARD) subcutaneous injection 22.5 mg Past Treatment and Therapy Plans Oncology Chemotherapy Treatment Plan Name Start Date Discontinue Date Treatment Medications Discontinue Reason Plan Provider Cycles Degarelix 28 Day Cycles + Aplautamide 240mg QD- Prostate 04/02/2022 09/24/2022 degarelix (FIRMAGON) Therapy Complete Hiren Argueta MD 5 of 12 cycles started Radiation Treatments * Course C1 LT LUNG 202007/26/2021 - 08/05/2021 Treatment Period Energy Fraction Dose Fractions Total Dose Plans Planned LT UPR ANT 07/29/2021 - 08/05/2021 583 6 / 3,500 LT UPR POST 07/26/2021 - 08/02/2021 583 6 / 3,500 Reference Points Delivered [id number] 07/29/2021 - 08/05/2021 3,500 [id number] 07/26/2021 - 08/02/2021 3,500 Lifetime Dose Tracking * Chemical Lifetime Dose Automatic Entry Manual Entr y Air kerma at the reference point (Ka,r) 544 mGy 0 mGy 544 mGy DLP 8,520 mGycm 8,520 mGycm 0 mGycm
--- OUTSIDE RECORDS SUMMARY | 2025-04-18 08:05 | XMS_ITS | Encounter Summary ---
Author Organization [facility] Address [address] [place] [address] Phone Care Team Providers Care New Accounts Clerk Name Role Phone Bridger De Jesus MD Primary Care Provider Hiren Argueta MD Unavailable [phone] Varinder Granda MD Unavailable Encounter Details Date Type Department Care Team (Late st Contact Info) Description 07/14/2023 Telephone [facility] Oncology [address] [facility] [address] [place] [address] Selena Noonan, B.A. Social History Tobacco Use Types Packs/Day Years Used Date Smoking Tobacco: Former Cigars Q uit: 2010 Smokeless Tobacco: Former Alcohol Use Standard Drinks/Week Comments Yes 0 (1 standard drink = 0.6 oz pur e alcohol) social AUDIT-C Answer Date Recorded Q1: How often do you have a drink containing alc ohol? Monthly or less 04/03/2023 Q2: How many drinks containi ng alcohol do you have on a typical day when you are drinking? 1 or 2 04/03/2023 Q3: How often do you have si x or more drinks on one occasion? Never 04/03/2023 [facility] [place] of Occupat ional Health - Occupational Stress Questionnaire Answer Date Recorded Do you feel stress - tense, restless, nervous, or anxious, or unable to sleep at night because your mind is troubled all the time - these days? Rather much 05/15/2022 Personal Safety Answer Date Recorded Have you ever been in or are you currently in a harmful physical or emotional relationship or is someone making you feel afraid or unsafe? 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 Not on file Not on file documented as of this encounter Plan of Treatment Not on file documented as of this encounter Visit Diagnoses Not on filedocumented in this encounter Care Teams New Accounts Clerk Relationship Specialty Start Date End Date Bridger De Jesus MD [address] [place] [address] PCP - General 12/23/16 Hiren Argueta MD [address] [place] [address] Medical Oncologist/Lining Brusher Medical Oncology 12/20/20 Varinder Granda MD [address] [place] [address] Radiation Oncologist Radiation Oncology 07/28/21 documented as of this encounter
--- OUTSIDE RECORDS SUMMARY | 2025-04-18 08:05 | XMS_ITS | Encounter Summary ---
Author Organization [facility] Address [address] [place] [address] Care Team Providers Care Product Development Name Role Phone Bridger De Jesus MD Primary Care Provider iHren Argueta MD Unavailable Varinder Granda MD Unavailable Encounter Details Date Type Department Care Team (Late st Contact Info) Description 03/11/2021 Telephone [facility] Imaging [address] [place], [place] [id number] Tricia Light, Social History Tobacco Use Types Packs/Day Years Used Date Smoking Tobacco: Former Cigars Smokeless Tobacco: Former Alcohol Use Standard Drinks/Week Comments Yes 0 (1 standard drink = 0.6 oz pur e alcohol) social Sex and Gender Information Value Date Recorded Sex Assigned at Not on file Legal Sex Male 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 Gender Identity Not on file Sexual Orientation Not on file documented as of this encounter Plan of Treatment Not on file documented as of this encounter Visit Diagnoses Not on filedocumented in this encounter Care Teams Product Development Relationship Specialty Start Date End Date Bridger De Jesus MD [address] [facility] [address] [place] [address] PCP - General 12/23/16 Hiren Argueta MD [address] [place] [address] [address] [place] [address] Medical Oncologist/Dental Hygiene Teacher Medical Oncology 12/20/20 Varinder Granda MD [address] [facility] [address] [place] [address] Radiation Oncologist Radiation Oncology 07/28/21 documented as of this encounter
--- OUTSIDE RECORDS SUMMARY | 2025-04-18 08:05 | XMS_ITS | Encounter Summary ---
Author Organization [facility] Address [address] [place] [address] Phone Care Team Providers Care Cardiology Fellow Name Role Phone Bridger De Jesus MD Primary Care Provider Hiren Argueta MD Unavailable [phone] Varinder Granda MD Unavailable Encounter Details Date Type Department Care Team (Late st Contact Info) Description 03/12/[address] [facility] Oncology 10 [facility] [address] [place] [address] Leida Vargas CPhT Social History Tobacco Use Types Packs/Day Years Used Date Smoking Tobacco: Former Cigars Q uit: 2010 Smokeless Tobacco: Former Alcohol Use Standard Drinks/Week Comments Yes 0 (1 standard drink = 0.6 oz pur e alcohol) social AUDIT-C Answer Date Recorded Q1: How often do you have a drink containing alc ohol? Monthly or less 12/10/2021 Average Number of Drinks Not on file 022 Frequency of Binge Drinking Not on file 06/2022 [facility] [place] of Occupat ional Health - Occupational Stress Questionnaire Answer Date Recorded Do you feel stress - tense, restless, nervous, or anxious, or unable to sleep at night because your mind is troubled all the time - these days? 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 file Not on file Not on file documented as of this encounter Plan of Treatment Not on file documented as of this encounter Visit Diagnoses Not on filedocumented in this encounter Care Teams Cardiology Fellow Relationship Specialty Start Date End Date Bridger De Jesus MD [address] [place] [address] PCP - General 12/23/16 Hiren Argueta MD [address] [place], [place] [id number] Medical Oncologist/Loop Puller Medical Oncology 12/20/20 Varinder Granda MD [address] [place], [place] [id number] Radiation Oncologist Radiation Oncology 07/28/21 documented as of this encounter
--- OUTSIDE RECORDS SUMMARY | 2025-04-18 08:05 | XMS_ITS | Encounter Summary ---
Author Organization [facility] Address [address] [place] [address] Phone Care Team Providers Care Airfield Engineer Officer Name Role Phone Bridger De Jesus MD Primary Care Provider Hiren Argueta MD Unavailable [phone] Varinder Granda MD Unavailable Encounter Details Date Type Department Care Team (Late st Contact Info) Description 08/26/[address] [facility] Oncology 10 [facility] [address] [place] [address] Lynnette Crespo, B.A. 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 Gender Identity Not on file Sexual Orientation Not on file documented as of this encounter Plan of Treatment Not on file documented as of this encounter Visit Diagnoses Not on filedocumented in this encounter Care Teams Airfield Engineer Officer Relationship Specialty Start Date End Date Bridger De Jesus MD [address] [facility] [address] [place], [place] [id number] PCP - General 12/23/16 Hiren Argueta MD [address] [facility] [address] [place], [place] [id number] Medical Oncologist/Chemical Equipment Sales Engineer Medical Oncology 12/20/20 Varinder Granda MD [address] [facility] [address] [place], [place] [id number] Radiation Oncologist Radiation Oncology 07/28/21 documented as of this encounter
--- OUTSIDE RECORDS SUMMARY | 2025-04-18 08:05 | XMS_ITS | Encounter Summary ---
Author Organization [facility] Robert Applebaum MD [facility] Address [address] [place] [address] Phone Care Team Providers Care Journeyman Pipefitter Name Role Phone Bridger De Jesus MD Primary Care Provider Hiren Argueta MD Unavailable [phone] Varinder Granda MD Unavailable [phone] Encounter Details Date Type Department Care Team (Latest Contact Info) Description 05/09/2022 Orders Only [facility] Scanning, Provider Social History Tobacco Use Types Packs/Day Years Used Date Smoking Tobacco: Former Cigars Q uit: 2009 Smokeless Tobacco: Former Alcohol Use Standard Drinks/Week Comments Yes 0 (1 standard drink = 0.6 oz pur e alcohol) social AUDIT-C Answer Date Recorded Q1: How often do you have a drink containing alc ohol? Monthly or less 04/01/2022 Average Number of Drinks Not on file 022 Frequency of Binge Drinking Not on file 03/04 [place] of Occupat ional Health - Occupational Stress Questionnaire Answer Date Recorded Do you feel stress - tense, restless, nervous, or anxious, or unable to sleep at night because your mind is troubled all the time - these days? 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 file Not on file Not on file documented as of this encounter Plan of Treatment Not on file documented as of this encounter Procedures Procedure Name Priority Date/Time Associated Diagnosis Comments SCAN - PATHOLOGY 05/09/2022 documented in this encounter Results * SCAN - PATHOLOGY (05/09/2022) us Provider Scanning Final Result documented in this encounter Visit Diagnoses Not on filedocumented in this encounter Care Teams Journeyman Pipefitter Relationship Specialty Start Date End Date Bridger De Jesus MD [address] [place] [address] PCP - General 12/23/16 Hiren Argueta MD [address] [facility] [address] [place] [address] Medical Oncologist/Stock Patch Sawyer Medical Oncology 12/20/20 Varinder Granda MD [address] [facility] [address] [place] [address] Radiation Oncologist Radiation Oncology 07/28/21 documented as of this encounter
--- OUTSIDE RECORDS SUMMARY | 2025-04-18 08:05 | XMS_ITS | Encounter Summary ---
Author Organization [facility] Address [address] [place] [address] Phone Care Team Providers Care Perfumer Name Role Phone Bridger De Jeuss MD Primary Care Provider Hiren Argueta MD Unavailable [phone] Varinder Granda MD Unavailable Reason for Visit * Reason Onset Date Comments Scheduling Appointments 12/28/2020 patient has apt times Encounter Details Date Type Department Care Team (Late st Contact Info) Description 12/28/2020 Telephone [facility] Oncology 10 [facility] [address] [place] [phone] Daphney Arrington CMA Scheduling Appointments (patient has apt times ) Social History Tobacco Use Types Packs/Day Years Used Date Smoking Tobacco: Former Cigars Smokeless Tobacco: Former Alcohol Use Standard Drinks/Week Comments Yes 0 (1 standard drink = 0.6 oz pur e alcohol) social Sex and Gender Information Value Date Recorded Sex Assigned at Not on file Legal Sex Male 3:18 AM CADDYMASTER Gender Identity Not on file Sexual Orientation Not on file documented as of this encounter Plan of Treatment Not on file documented as of this encounter Visit Diagnoses Not on filedocumented in this encounter Care Teams Perfumer Relationship Specialty Start Date End Date Bridger De Jesus MD [address] [place] [address] PCP - General 12/23/16 Hiren Argueta MD [address] [place] [address] Medical Oncologist/Body Recall Instructor Medical Oncology 12/20/20 Varinder Granda MD [address] [place] [address] Radiation Oncologist Radiation Oncology 07/28/21 documented as of this encounter
--- OUTSIDE RECORDS SUMMARY | 2025-04-18 08:05 | XMS_ITS | Referral Summary ---
Author Organization [facility] Address [address] [address] Care Team Providers Care Ensemble Member Name Role Phone Bridger De Jesus MD Primary Care Provider Hiren Argueta MD Unavailable Varinder Granda MD Unavailable [phone] Allergies No known active allergies Medications atorvastatin [...] lung nodules. Patient has a history of [place] 4 + 4 [id number] prostate cancer status post prostatectomy in 2011 [...] 10/24/2024 Assessment & Plan (12/06/2024 2:01 PM GAS APPLIANCE SERVICER HELPER): Status post bilateral pulmonary thrombectomy. Patient doing [...] Preservative Free, Intramu scular 11/10/2016 Tdap 11/23/2012 Social History Tobacco Use Types Packs/Day Years Used Date Smoking Tobacco: Former Cigars Q uit: 2009 Smokeless Tobacco: Former Tobacco Cessation:Counseling Given: Not Answered Alcohol Use Standard Drinks/Week Comments Yes 0 (1 standard drink = 0.6 oz pur e alcohol) social [facility] Utilities Answer Date Recorded In the past 12 months has e electric, gas, oil, or water company [...] often do you attend chur ch or yarsani services? Never 10/25/2024 Do you belong to any clubs o r organizations such as sabianism groups, unions, fraternal or athletic groups, or [...] and heating? Not hard at all 10/25/2024 [facility] of Occupat ional Health - Occupational Stress [...] any time in the past 12 m [facility], were you homeless or living in a half-way (including now)? No 10/25/2024 Personal Safety Answer Date Recorded Have you ever been in or are you currently in a harmful physical or emotional relationship or is someone making you feel afraid or unsafe? 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 file Not on file Not on file Last Filed Vital Signs Vital Sign Reading Time Taken Comments Blood Pressure 102/65 11/23/2024 8:57 AM GAS APPLIANCE SERVICER HELPER Pulse 76 11/23/2024 8:57 AM GAS APPLIANCE SERVICER HELPER Temperature 36.6 C (97.9 F) 10/27/2024 10:45 AM GAS APPLIANCE SERVICER HELPER Respiratory Rate 22 10/27/2024 10:45 AM GAS APPLIANCE SERVICER HELPER Oxygen Saturation 95% 10/27/2024 10:45 AM GAS APPLIANCE SERVICER HELPER Inhaled Oxygen Concentration - - Weight 110.7 kg (244 lb) 11/23/2024 8:57 AM GAS APPLIANCE SERVICER HELPER Height 177.8 cm (5' 10) 11/23/2024 8:57 AM GAS APPLIANCE SERVICER HELPER Body Mass Index 35.01 11/23/2024 8:57 AM GAS APPLIANCE SERVICER HELPER Plan of Treatment Not on file Medical Devices Implanted Type Area Leasing Sales Consultant Device Identifier Shelf Expiration Date Model / Serial / Lot Karlie Melendez Porp [place] Prosthesis Ossicular 655 - [id number] Implanted:Qty: 1 on 04/03/2023 by Toribio Hay MD at [facility] Left: Ear Karlie Melendez [id number] 02/01/2028 655 / / [id number] [employer] System Closure Repair Femoral Artery Suture Mediated Perclose Prostyle 73665-62 - [id number] Implanted:Qty: 1 on 10/25/2024 by Tashi Alvarez MD at [facility] [employer] 08/01/2026 [id number] / / [id number] [employer] Closure Repair Femoral Artery Suture Mediated Perclose Prostyle 11823-01 - [id number] Implanted:Qty: 1 on 10/25/2024 by Tashi Alvarez MD at [facility] [employer] 08/01/2026 [id number] / / [id number] Procedures Procedure Name Priority Date/Time Associated Diagnosis Comments EGFR Routine 10/27/2024 2:47 AM GAS APPLIANCE SERVICER HELPER HEMOGLOBIN A1C Routine 10/25/2024 2:47 AM GAS APPLIANCE SERVICER HELPER PSA DIAGNOSTIC Routine 02/17/2024 7:34 AM CDT Prostate cancer metastatic to multiple sites (HCC) CT CHEST ABDOMEN PELVIS W CONTRAST Schedule Routine, Read Routine (OP Routine) 06/06/2022 12:19 PM CDT Malignant neoplasm of prostate (HCC) SERUM LIPID PANEL Routine 01/08/2016 10: 51 PM GAS APPLIANCE SERVICER HELPER from Last 3 Months or Most Recently Relevant to Health Maintenance Results * eGFR (10/27/2024 2:47 AM GAS APPLIANCE SERVICER HELPER) eGFR 73 >=60 mL/min/1. 73 m2 Comment: [...] of Race in Diagnosing Kidney Disease, JASN 2020). The CKD-EPI equation should not be used for patients with unstable renal function and has not been validated in children and those over 70. Current interpretive data was last reviewed 2021. Blood 10/27/2024 2:47 AM GAS APPLIANCE SERVICER HELPER 10/27/2024 3:12 AM GAS APPLIANCE SERVICER HELPER Tashi Alvarez MD LAB BLOOD ORDERABLES Final Result Performing Organization Address [facility] Co de Phone Number [address] [place] [address] * (ABNORMAL) Hemoglobin A1c (10/25/2024 2:47 AM GAS APPLIANCE SERVICER HELPER) Hgb A1C 6.1(H) 4.0 - 5.6 % Estimated Average Glucose 128 mg/dL [facility] Comment: The ADA recommends reporting an estimated Average Glucose (eAG) with all Hemoglobin A1c results using the equation derived from a study of 507 normal and diabetic adults. Minority populations were underrepresented and children were not included. (Diabetes Care 31:1317-8700, 2008). The eAG is not equivalent to a fasting glucose. Blood 10/25/2024 2:47 AM GAS APPLIANCE SERVICER HELPER 10/25/2024 3:08 AM GAS APPLIANCE SERVICER HELPER Phyllis Zimmer NP LAB BLOOD ORDERABLES Fi nal Result Performing Organization Address [facility] Co de Phone Number [address] [employer] [place], [place] [phone] * PSA diagnostic (02/17/2024 7:34 AM CDT) PSA-Total <0.10 <=5.40 ng/mL Comment: Interpretive Data [...] LAB BLOOD ORDERABLES Final Result [facility] [address] [facility]. [employer] [place] [address] * CT chest abdomen pelvis with contrast [...] by: Harsha Romeo M.D. Hiren Argueta MD IM CT PROCEDURES Edit ed Result - Final * (ABNORMAL) Serum lipid panel (01/08/2016 10:51 PM GAS APPLIANCE SERVICER HELPER) Cholesterol 140 0 - 200 mg/dl HISTORICAL [...] revised 2012. Serum 01/08/2016 10:5 1 PM GAS APPLIANCE SERVICER HELPER José Sommer MD LAB BLOOD ORDERABLES Final Result HISTORICAL RESULTS from Last 3 Months or Most Recently Relevant to Health Maintenance Insurance [employer] MEDICARE [facility] [employer] [facility] MEDICARE Advance Directives For more information, please contact: [phone] * Full Code (Latest Code Status on File) Date Activated Date Inactivated Comments 10/25/2024 2:08 AM 10/27/2024 8:05 PM Care Teams Ensemble Member Relationship Specialty Start Date End Date Bridger De Jesus MD [address] [place] [address] PCP - General 12/23/16 Hiren Argueta MD [address] [place] [address] Medical Oncologist/Aircraft Life Support Fitter Medical Oncology 12/20/20 Varinder Granda MD [address] [place] [address] Radiation Oncologist Radiation Oncology 07/28/21
[2025-04-18 08:26] LABS: Add Urine Microscopic? NO; Appearance Urine Clear (Clear); Bilirubin Urine Negative (Negative); Blood Urine Negative (Negative); Color Urine Yellow (Yellow); Glucose Urine UA 3+ mg/dL (Negative); Hematocrit 45.5 % (42.0-52.0); Hemoglobin 14.6 g/dL (14.0-18.0); Ketones Urine Negative (Negative); Leukocyte Esterase Ur Negative LEU/UL (Negative); Mean Corpuscular HGB Conc 32.1 g/dl (32-36); Mean Corpuscular Hemoglobin 28.7 pg (26-34); Mean Corpuscular Volume 89.4 fl (80-100); Mean Platelet Volume 9.1 fl (7.4-10.4); Nitrate Urine Negative (Negative); Platelet Count Result 275 k/mm3 (150-375); Protein Urine Negative (Negative); Red Blood Count 5.09 M/mm3 (4.6-6.20); Red Cell Distribution Width 13.5 % (11.5-14.5); Urobilinogen Urine 0.2 mg/dL (<2.0)
[2025-04-18 08:34] LABS: Alanine Aminotransferase 29 U/L (6-50); Albumin Level 4.1 g/dL (3.5-5.1); Alkaline Phosphatase 54 U/L (38-126); Anion Gap 7 mmol/L (4-12); Aspartate Amino Transferase 38 U/L (17-59); Bilirubin,Total 0.5 mg/dL (0.2-1.3); Blood Urea Nitrogen 21 mg/dL (9-20); Calcium 8.7 mg/dL (8.4-10.2); Carbon Dioxide 27 mmol/L (22-30); Chloride 108 mmol/L (98-107); Cholesterol 140 mg/dL (0-200); Estimated Glomerular Filt Rate > 60; Glucose 108 mg/dL (65-110); HDL Direct 30 mg/dL; Potassium 4.3 mmol/L (3.4-5.0); Sodium 142 mmol/L (137-145); Total Protein 7.1 g/dL (6.3-8.2); Triglycerides 131 mg/dL (<150)
[2025-04-18 09:38] LABS: LDL Cholesterol Direct 78 mg/dL
[2025-04-18 09:58] LABS: Prostate Specific Antigen < 0.1 ng/mL (< OR = 4.0)
[2025-04-18 10:04] LABS: Hemoglobin A1C 6.1 % (<5.7)
[2025-04-18 10:23] LABS: Creatinine Urine 93.3 mg/dL
[2025-04-18 11:35] LABS: MALB Creatinine Ratio < 6.4 mg/g (0-30); Microalbumin Urine Random < 6.0 mg/L (0-16.7)
== END 2025-04-18 07:56 | disposition home or self-care (01) ==
PROVIDERS: PCP Family Medicine; Visit Provider Family Medicine
DX: Z00.00 Encounter for general adult medical examination without abnormal findings (principal); I10 Essential (primary) hypertension; E78.00 Pure hypercholesterolemia, unspecified; E11.9 Type 2 diabetes mellitus without complications; C61 Malignant neoplasm of prostate
CPT/HCPCS: 36415; 80053; 80061; 81003; 82043; 83036; 84153; 84443; 85027

== ENCOUNTER 2025-05-03 03:43 | Emergency (ER) | payer MEDICARE, OTHER, SELFPAY ==
[2025-05-03] VITALS (11 sets, daily range): BP systolic 115–143; BP diastolic 78–91; PULSE 52–67; RESP 8–18; TEMP 36.7; O2SAT 97–100
--- NOTE | ~2025-05-03 | CT_ITS ---
CT of the Abdomen and Pelvis: Indication: Abdominal pain Technique: 2.5 mm axial scans were obtained through the abdomen and pelvis following intravenous adm inistration of 100 cc of Omnipaque 350. Dose reduction technique was used on this scan by utilizing a utomated exposure control and iterative reconstruction technique. The dose-length product (DLP) was 1 464.72 mGy-cm. Findings: Scans through the lung bases are unremarkable. The liver, spleen, pancreas, gallbladder, adrenals and right kidney are within normal limits. There i s a punctate stone at the left UVJ, with mild left hydroureteronephrosis. No evidence of aortic aneur ysm. No lymphadenopathy. No bowel obstruction or bowel wall thickening. There is no evidence to suggest acute appendicitis. Images through the pelvis were performed. Urinary bladder unremarkable. Status post prostatectomy. No pelvic mass seen. No ascites. Small bilateral fat-containing inguinal hernias. Impression: Punctate left UVJ stone with mild left hydroureteronephrosis. Small bilateral fat-containing inguinal hernias. Reviewed, dictated and finalized at location . Impression: Punctate left UVJ stone with mild left hydroureteronephrosis. Small bilateral fat-containing inguinal hernias.
--- OUTSIDE RECORDS SUMMARY | 2025-05-03 03:45 | XMS_ITS | Clinical Summary ---
Author Organization [facility] Address [address] [place] [address] Care Team Providers Care Behaviorist Name Role Phone Bridger De Jesus MD Primary Care Provider [phone] Hiren Argueta MD Unavailable [phone] Allergies No known active allergies Medications multi vitamin/mineral s tablet Take 1 tablet by mouth daily. Active lisinopril 10 MG tablet Take 1 tablet (10 mg total) by mouth nightly. 1 Active fenofibrate 160 MG tablet Take 1 tablet (160 mg total) by mouth nightly. 1 Active JARDIANCE 25 MG tablet Take 1 tablet (25 mg total) by mouth every morning. 1 Active cetirizine 10 MG tablet Take 1 tablet (10 mg total) by mouth nightly. Active atorvastatin 10 MG tablet Take 1 tablet (10 mg total) by mouth nightly at bedtime. 1 Active TRESIBA FLEXTOUCH 100 UNIT/ML Solution Pen-injector injection Inject 34 Units into the skin nightly at bedtime. 2 Active albuterol sulfate HFA 108 (90 Base) MCG/ACT inhaler 1 Active PRECISION XTRA TEST STRIPS test strip 2 Active BD ULTRA-FINE PEN NEEDLES 29G X 12.7MM Misc 3 Active OZEMPIC 1 mg/dose injection (PEN) Inject 1 mg into the skin once a week. Wednesdays 3 Active calcium-vitamin D-vitamin K (VIACTIV) 500-500-40 MG-UNT-MCG Chew Tab Chew 1 tablet by mouth daily. Active cephALEXin (KEFLEX) 500 MG capsuleIndicati ons:Cellulitis Take 1 pill 4 times a day 40 capsule 4 Active Additional Information Patient not taking.Reported on 06/09/2024 OZEMPIC 2 mg/dose injection (PEN) 4 Active Active Problems Problem Noted Date Diagnosed Date S/P arthroscopy of right shoulder 03/10/2024 S/P arthroscopy of right shoulder 02/23/2024 Patellofemoral arthritis of right knee 4 Traumatic complete tear of r ight rotator cuff, subsequent encounter 01/21/2024 Impingement syndrome of right shoulder 4 Osteoarthritis of right acromioclavicular joint 01/21/2024 Osteoarthritis of right AC (acromioclavicular) j oint 11/17/2023 History of hormone therapy 05/07/2022 S/P right unicompartmental knee replacement 01/01 Stress fracture of right tib ia with routine healing, subsequent encounter 10/24/2021 Primary osteoarthritis of right knee 10/24/2021 Primary osteoarthritis of left knee 10/24/2021 Diabetes ([facility]) 10/24/2021 Secondary malignant neoplasm of lung ([facility]) 05/23/2021 Prostate cancer metastatic t o multiple sites ([facility]) 01/18/2013 Resolved Problems Problem Noted Date Diagnosed Date Resolved Date Encounter for preventive health examination 11/15/2012 02/02/2023 Family History Medical History Relation Comments Diabetes Brother 1 Prostate Cancer Brother 2 Brain tumor Cousin Stroke Maternal Grandfather Heart Mother Diabetes Paternal Grandmother Diabetes Sister 1 Diabetes Sister 2 Relation Status Comments Brother 1 Alive Brother 2 Alive Cousin Daughter Alive Father Maternal Grandfather Maternal Grandmother Mother Paternal Grandfather Paternal Grandmother Sister 1 Alive Sister 2 Alive Social History Tobacco Use Types Packs/Day Years Used Date Smoking Tobacco: Former Cigarettes Q uit: 08/31/2010 Pipe Cigars Passive Smoke Exposure: Never Smokeless Tobacco: Never Tobacco Cessation:Counseling Given: No Comments:Former, Quit 2009 Alcohol Use Standard Drinks/Week Comments Not Currently 0 (1 standard drink = 0.6 oz pur e alcohol) NA PHQ-2 Answer Date Recorded Patient Health Questionnaire-2 Score 0 03/22/2024 Sex and Gender Information Value Date Recorded Sex Assigned at Not on file Legal Sex Male 7:29 PM CDT Gender Identity Male 12/09/2021 10:05 AM 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 CARPENTER Sexual Orientation Straight 12/09/2021 10 :05 AM WOODWORKING BENCH CARPENTER Last Filed Vital Signs Vital Sign Reading Time Taken Comments Blood Pressure 101/62 09/01/2024 3:51 PM CDT Pulse 72 09/01/2024 3:51 PM CDT Temperature 36.4 C (97.5 F) 09/01/2024 3:51 PM CDT Respiratory Rate 18 03/11/2024 5:28 PM CDT Oxygen Saturation 96% 2024 1:45 PM CDT Inhaled Oxygen Concentration - - Weight 115.1 kg (253 lb 12.8 oz) 09/01/2024 3:51 PM CDT Height 177.8 cm (5' 10) 2024 1:45 PM CDT Body Mass Index 36.42 2024 1:45 PM CDT Plan of Treatment Health Maintenance Due Date Last Done Comments Colorectal Cancer Screening Colonoscopy (10 Years) 1954 Kidney Health Evaluation 1954 Lipid Panel 1954 Diabetes: Retinopathy Eye Exam 1972 Hepatitis C 1972 Pneumococcal Vaccine: 50+ Years (1 of 2 - PCV) 1973 RSV Immunization or 60+ Years (1 - Risk 60-74 years 1-dose series) 2014 Zoster Vaccines (2 of 3) 10/21/2016 08/26/2016 Annual Medicare Wellness Visit 2019 Hemoglobin A1C 05/01/2022 11/01/2021 COVID-19 Vaccine (3 - season) 2024 02/04/2021, 01/11/2021 PHQ-2 (Physician [place]) 11/02/2024 03/22/2024 DTaP, Tdap and Td Vaccines (3 - Td or Tdap) 07/14/2026 07/14/2016, 11/23/2012, 08/07/2003, Additional history exists Meningococcal Vaccine Aged Out 09/05/1997 No karen bety eligible based on patient's age to complete this topic AAA SCREENING Completed 06/06/2022, 03/2022, 04/01/2022, Additional history exists Meningococcal B Vaccine Aged Out No l onger eligible based on patient's age to complete this topic RSV Immunizations Under 20 Months Aged Out No longer eligible based on patient's age to complete this topic Medical Devices Implanted Type Area Yeast Stacker Device Identifier Shelf Expiration Date Model / Serial / Lot Implant Arthrex [place] Bio-Corkscrew 4.5mm - [id number] Implanted:Qty : 1 on 03/11/2024 by Stevenson Kan MD at [facility] [place] Right: Shoulder [employer] [id number] 08/01/2027 AR-1927B CF-45 / / [id number] Implant [place] Arthrex Bio Swivelock 4.75mm - [id number] Implanted:Qty : 2 on 03/11/2024 by Stevenson Kan MD at [facility] [place] Right: Shoulder [employer] [id number] 12/02/2027 AR-2324B CC / / [id number] [place] Suture Arthrex Bio Swivelock 5.5mm - [id number] Implanted:Qty : 1 on 03/11/2024 by Stevenson Kan MD at [facility] [place] Right: Shoulder [employer] [id number] 12/02/2027 AR-2323B CC / / [id number] Cement Bone Tobramycin Simplex - [id number] Implanted:Qty : 1 on 01/29/2022 by Stevenson Kan MD at [facility] Cement Implant Right: Knee [employer] LAURIE [id number] 11/01/2022 6197-9-0 10 / / [id number] Cement Full Dose - [id number] Implanted:Qty : 1 on 01/29/2022 by Stevenson Kan MD at [facility] Cement Implant Right: Knee [employer] LAURIE [id number] 04/01/2024 6191-1-0 10 / / [id number] Component Femoral 4 Knee Unicondylar Right Medial Anatomic Design Cemented Resurface Ibalance - [id number] Implanted:Qty : 1 on 01/29/2022 by Stevenson Kan MD at [facility] Knee Components Right: Femur [employer] [id number] 07/02/2025 AR-501-U FRD / / [id number] Ibalance Uka Tibial Tray Implanted:Qty : 1 on 01/29/2022 by Stevenson Kan MD at [facility] Knee Components Right: Tibia [employer] [id number] 03/01/2025 AR-511-T 4R / / [id number] Ibalance Uka Tibial Bearing Implant Vitamin E Implanted:Qty : 1 on 01/29/2022 by Stevenson Kan MD at [facility] Knee Components Right: Tibia [employer] [id number] 03/01/2026 AR-521-T BD0 / / [id number] Procedures Procedure Name Priority Date/Time Associated Diagnosis Comments OUTSIDE LAB (SCAN ORDER) Routine 11/01/2021 from Last 3 Months or Most Recently Relevant to Health Maintenance Results * OUTSIDE LAB (SCAN) (11/01/2021) HGB A1C 7.8 % HS ONBASE 11/01/2021 us Documents Scanned SCANNING Final Result [facility] ONBASE from Last 3 Months or Most Recently Relevant to Health Maintenance Insurance MEDICARE [employer] Care Teams Behaviorist Relationship Specialty Start Date End Date Bridger De Jesus MD [address] [place] [address] PCP - General FAMILY PRACTICE 08/27/21 Hiren Argueta MD [address] [facility] [address] [facility] MEDICAL ONCOLOGY, [address] [place] [address] MEDICAL ONCOLOGY 02/11/24
--- OUTSIDE RECORDS SUMMARY | 2025-05-03 03:45 | XMS_ITS | Continuity of Care Document ---
Author Name [facility] Organization [facility] Care Team Providers Care Alcohol Rubber Name Role Phone [facility] Unavailable Unavailable Problems Combined list of problems from [facility] and [facility] facilities. It does not include entries that were removed or entered in error. Problem Status Onset Date Problem Type Date of Resolution Comments Source Benign hypertension Active Condition [facility] Bilateral hearing loss Active Condition [facility] Carcinoma of prostate Active Condition Jul 14, 2016 Entered By: GRISEL SON Comment: s/p surgery & radiation [facility] Diabetes mellitus Active Condition [facility] Hyperlipidemia Active Condition [facility] Medications Combined list of outpatient medications from [facility] and [facility] facilities.Medications provided include 1) outpatient medications from the last 15 months, and 2) patient-reported medications. Medication Details Route Status Patient Instructions Prescription Expires Prescription Number Last Dispense Date Ordering Provider Order Date Order Qty Source ATORVASTATI N TAB TAKE BY MOUTH EVERY EVENING ORAL ACTIVE ADELAIDA,DAVID A D 2015 [facility] CHOLECALCIF DEREJE 50MCG (2,000UNIT) TAB TAKE ONE TABLET BY MOUTH ONCE A DAY ORAL ACTIVE ADELAIDA,DAVID A D 2015 [facility] LISINOPRIL TAB TAKE BY MOUTH ONCE A DAY ORAL ACTIVE ADELAIDA,DAVID A D 2015 [facility] METFORMIN HCL 500MG 24HR TAB,SA TAKE ONE TABLET BY MOUTH ONCE A DAY ORAL ACTIVE ADELAIDA,DAVID A D 2015 [facility] SITAGLIPTIN PHOSPHATE 100MG TAB TAKE ONE TABLET BY MOUTH ONCE A DAY ORAL ACTIVE ADELAIDA,DAVID A D 2015 [facility] Immunizations Combined list of available immunizations from the Department of Defense and Veterans Affairs facilities. Immunization Series Date Given Administered By Site Reaction Lot Number CVX Code Drug Court Attendant Status Comments Source INFLUENZA, HIGH-DOSE, QUADRIVALENT 2019 197 complet ed HISTORICA L INFORMATI ON - FROM OTHER PROVIDER, Partner: [facility]. Administe red by: [employer] Pharmacy Clinician (NPI=Not Provided) . Partner 43 Lot#: [id number] Mfr: sanofi pasteur; Dosage: [id number] ml QUINCY Ibarra NADER [facility] INFLUENZA, TRIVALENT, ADJUVANTED 2019 168 complet ed HISTORICA L INFORMATI ON - FROM OTHER PROVIDER, Partner: [facility]. Administe red by: [employer] [facility] health[employer] Pharmacy Clinician (NPI=Not Provided) . Partner 43 Lot#: [id number] Mfr: SEQIRUS QUINCY Ibarra [facility] INFLUENZA, INJECTABLE, QUADRIVALENT, PRESERVATIVE FREE 2017 150 complet ed 02, Partner: [facility]. Administe red by: [facility] Clinician (NPI=Not Provided) . Partner 43 Lot#: [id number] Mfr: GlaxoSmit hKline QUINCY Ibarra [facility] ZOSTER LIVE 2015 121 complet ed [facility] TDAP 2015 115 complet ed Right Deltoid [facility] Encounters Combined list of: 1) Encounters from Department of Veterans Affairs facilities going backup to the last 18 months, not all VA inpatient encounters are included; 2) Encounters from the Department of [facility] facilities going backup to 280 months. Location Location Details Encounter Type Encounter Number Reason For Visit Attending Provider ADM Date DC Date Status Disposition Source [facility] Outpatient Encounter [id number] 03/09 [facility] Outpatient Encounter [id number] 07/09 [facility] Outpatient Encounter [id number] SUMA DAMIAN 09/01 [facility] Social History Combined list of available smoking, tobacco, and other social history from Department of Defense and Veterans Affairs facilities. Social History Type Response Date Comment Sour e Tobacco smoking status NHIS QUIT TOBACCO >7 YEARS AGO 07/14/2016 [facility] Advance Directives List of completed, amended, or rescinded Advance Directives on record at Department of Veterans Affairs facilities. An actual copy of the Directive is not included. Date Advance Directive Provider Source 03/31/2017 ADVANCE DIRECTIVE DISCUSSION [facility]
--- OUTSIDE RECORDS SUMMARY | 2025-05-03 03:45 | XMS_ITS | Encounter Summary ---
Author Organization [facility] Address [address] [place] [address] Phone Care Team Providers Care System Dispatcher Name Role Phone Bridger De Jesus MD Primary Care Provider Hiren Argueta MD Unavailable [phone] Varinder Granda MD Unavailable Reason for Visit * Reason Onset Date Comments SCHEDULE UPDATE 05/16/2021 Encounter Details Date Type Department Care Team (Late st Contact Info) Description 05/16/2021 Telephone [facility] Oncology [address] [place] [address] Krystyna Valenzuela, [facility] SCHEDULE UPDATE Social History Tobacco Use Types Packs/Day Years Used Date Smoking Tobacco: Former Cigars Q uit: 2010 Smokeless Tobacco: Former Alcohol Use Standard Drinks/Week Comments Yes 0 (1 standard drink = 0.6 oz pur e alcohol) social Sex and Gender Information Value Date Recorded Sex Assigned at Not on file Legal Sex Male 3:18 AM CHEMISTRY 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 Gender Identity Not on file Sexual Orientation Not on file 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 Not on file Not on file documented as of this encounter Plan of Treatment Not on file documented as of this encounter Visit Diagnoses Not on filedocumented in this encounter Care Teams System Dispatcher Relationship Specialty Start Date End Date Bridger De Jesus MD [address] [place] [address] PCP - General 12/23/16 Hiren Argueta MD [address] [place] [address] Medical Oncologist/Printed Circuit Board Pcb Draftsman Medical Oncology 12/20/20 Varinder Granda MD [address] [place] [address] Radiation Oncologist Radiation Oncology 07/28/21 documented as of this encounter
--- OUTSIDE RECORDS SUMMARY | 2025-05-03 03:46 | XMS_ITS | Encounter Summary ---
Author Organization [facility] Address [address] [place] [address] Phone Care Team Providers Care Erco Machine Operator Name Role Phone Bridger De Jesus MD Primary Care Provider Hiren Argueta MD Unavailable [phone] Varinder Granda MD Unavailable Reason for Visit * Reason Onset Date Comments Scheduling Appointments 12/28/2020 patient has apt times Encounter Details Date Type Department Care Team (Late st Contact Info) Description 12/28/2020 Telephone [facility] Oncology [address] [place] [phone] Daphney Arrington CMA Scheduling Appointments (patient has apt times ) Social History Tobacco Use Types Packs/Day Years Used Date Smoking Tobacco: Former Cigars Smokeless Tobacco: Former Alcohol Use Standard Drinks/Week Comments Yes 0 (1 standard drink = 0.6 oz pur e alcohol) social Sex and Gender Information Value Date Recorded Sex Assigned at Not on file Legal Sex Male 3:18 AM FIRE WATCHMAN Gender Identity Not on file Sexual Orientation Not on file documented as of this encounter Plan of Treatment Not on file documented as of this encounter Visit Diagnoses Not on filedocumented in this encounter Care Teams Erco Machine Operator Relationship Specialty Start Date End Date Bridger De Jesus MD [address] [place] [address] PCP - General 12/23/16 Hiren Argueta MD [address] [place] [address] Medical Oncologist/Architectural Coating Finisher Medical Oncology 12/20/20 Varinder Granda MD [address] [place] [address] Radiation Oncologist Radiation Oncology 07/28/21 documented as of this encounter
--- OUTSIDE RECORDS SUMMARY | 2025-05-03 03:46 | XMS_ITS | Referral Summary ---
Author Organization [facility] Address [address] [id number] Care Team Providers Care Kitchen Bath Designer Name Role Phone Bridger De Jesus MD [...] a history of Dayana 4 + 4 [id number] prostate cancer status post prostatectomy in 2011 [...] 10/24/2024 Assessment & Plan (12/06/2024 2:01 PM FITNESS CONSULTANT): Status post bilateral pulmonary thrombectomy. Patient doing [...] = 0.6 oz pur e alcohol) social [facility] Utilities Answer Date Recorded In the past [...] often do you attend chur ch or quaker services? Never 10/25/2024 Do you belong to any clubs o r organizations such as samaritan groups, unions, fraternal or athletic groups, or [...] and heating? Not hard at all 10/25/2024 [facility] of Occupat ional Health - Occupational Stress [...] any time in the past 12 m [facility], were you homeless or living in a custodial (including now)? No 10/25/2024 Personal Safety Answer Date Recorded Have you ever been in or are you currently in a harmful physical or emotional relationship or is someone making you feel afraid or unsafe? 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 Not on file Not on file Not on file Last Filed Vital Signs Vital Sign Reading Time Taken Comments Blood Pressure 102/65 11/23/2024 8:57 AM FITNESS CONSULTANT Pulse 76 11/23/2024 8:57 AM FITNESS CONSULTANT Temperature 36.6 C (97.9 F) 10/27/2024 10:45 AM FITNESS CONSULTANT Respiratory Rate 22 10/27/2024 10:45 AM FITNESS CONSULTANT Oxygen Saturation 95% 10/27/2024 10:45 AM FITNESS CONSULTANT Inhaled Oxygen Concentration - - Weight 110.7 kg (244 lb) 11/23/2024 8:57 AM FITNESS CONSULTANT Height 177.8 cm (5' 10) 11/23/2024 8:57 AM FITNESS CONSULTANT Body Mass Index 35.01 11/23/2024 8:57 AM FITNESS CONSULTANT Plan of Treatment Not on file Medical Devices Implanted Type Area Aircraft Armorer Device Identifier Shelf Expiration Date Model / Serial / Lot Karlie Melendez Porp [place] Prosthesis Ossicular 655 - [id number] Implanted:Qty: 1 on 04/03/2023 by Toribio Hay MD at [facility] Left: Ear Karlie Melendez [id number] 02/01/2028 655 / / [id number] [employer] System Closure Repair Femoral Artery Suture Mediated Perclose Prostyle 19720-25 - [id number] Implanted:Qty: 1 on 10/25/2024 by Tashi Alvarez MD at [facility] [employer] 08/01/2026 [id number] / / [id number] [employer] Closure Repair Femoral Artery Suture Mediated Perclose Prostyle 03419-86 - [id number] Implanted:Qty: 1 on 10/25/2024 by Tashi Alvarez MD at [facility] [employer] 08/01/2026 35851-58 / / [id number] Procedures Procedure Name Priority Date/Time Associated Diagnosis Comments EGFR Routine 10/27/2024 2:47 AM FITNESS CONSULTANT HEMOGLOBIN A1C Routine 10/25/2024 2:47 AM FITNESS CONSULTANT PSA DIAGNOSTIC Routine 02/17/2024 7:34 AM CDT Prostate cancer metastatic to multiple sites (HCC) CT CHEST ABDOMEN PELVIS W CONTRAST Schedule Routine, Read Routine (OP Routine) 06/06/2022 12:19 PM CDT Malignant neoplasm of prostate (HCC) SERUM LIPID PANEL Routine 01/08/2016 10: 51 PM FITNESS CONSULTANT from Last 3 Months or Most Recently Relevant to Health Maintenance Results * eGFR (10/27/2024 2:47 AM FITNESS CONSULTANT) eGFR 73 >=60 mL/min/1. 73 m2 Comment: [...] last reviewed 2021. Blood 10/27/2024 2:47 AM FITNESS CONSULTANT 10/27/2024 3:12 AM FITNESS CONSULTANT Tashi Alvarez MD LAB BLOOD ORDERABLES Final Result Performing Organization Address [facility] Co de Phone Number [address] [place] [address] * (ABNORMAL) Hemoglobin A1c (10/25/2024 2:47 AM FITNESS CONSULTANT) Hgb A1C 6.1(H) 4.0 - 5.6 % Estimated Average Glucose 128 mg/dL [facility] Comment: The ADA recommends reporting an estimated Average Glucose (eAG) with all Hemoglobin A1c results using the equation derived from a study of 507 normal and diabetic adults. Minority populations were underrepresented and children were not included. (Diabetes Care 31:0336-8296, 2008). The eAG is not equivalent to a fasting glucose. Blood 10/25/2024 2:47 AM FITNESS CONSULTANT 10/25/2024 3:08 AM FITNESS CONSULTANT Phyllis Zimmer NP LAB BLOOD ORDERABLES Fi nal Result Performing Organization Address [facility] Co de Phone Number [address] Location Labs [place], [place] [id number] * PSA diagnostic (02/17/2024 7:34 AM CDT) [...] LAB BLOOD ORDERABLES Final Result [facility] [address] [facility]. [place] [address] * CT chest abdomen pelvis with contrast [...] (ABNORMAL) Serum lipid panel (01/08/2016 10:51 PM FITNESS CONSULTANT) Cholesterol 140 0 - 200 mg/dl HISTORICAL [...] revised 2012. Serum 01/08/2016 10:5 1 PM FITNESS CONSULTANT José Sommer MD LAB BLOOD ORDERABLES Final Result HISTORICAL RESULTS from Last 3 Months or Most Recently Relevant to Health Maintenance Insurance [facility] HMO/PPO Address: [address] [address] [place] [address] [employer] [facility] MEDICARE Advance Directives For more information, please contact: [phone] * Full Code (Latest Code Status on File) Date Activated Date Inactivated Comments 10/25/2024 2:08 AM 10/27/2024 8:05 PM Care Teams Kitchen Bath Designer Relationship Specialty Start Date End Date Bridger De Jesus MD [address] [place] [address] PCP - General 12/23/16 Hiren Argueta MD [address] [place] [address] Medical Oncologist/Air Bag Buffer Medical Oncology 12/20/20 Varinder Granda MD [address] [place] [address] Radiation Oncologist Radiation Oncology 07/28/21
--- OUTSIDE RECORDS SUMMARY | 2025-05-03 03:46 | XMS_ITS | Encounter Summary ---
Author Organization [facility] Healthcare Address [address] [place] [address] Care Team Providers Care Aerospace Technician Name Role Phone Bridger De Jesus MD Primary Care Provider Hiren Argueta MD Unavailable Varinder Granda MD Unavailable [phone] Encounter Details Date Type Department Care Team (Late st Contact Info) Description 03/11/2021 Telephone [facility] [address] [place], [place] [id number] Tricia Light, Social History Tobacco Use Types Packs/Day Years Used Date Smoking Tobacco: Former Cigars Smokeless Tobacco: Former Alcohol Use Standard Drinks/Week Comments Yes 0 (1 standard drink = 0.6 oz pur e alcohol) social Sex and Gender Information Value Date Recorded Sex Assigned at Not on file Legal Sex Male 3:18 AM ENTEROSTOMAL THERAPY NURSE Gender Identity Not on file Sexual Orientation Not on file documented as of this encounter Plan of Treatment Not on file documented as of this encounter Visit Diagnoses Not on filedocumented in this encounter Care Teams Aerospace Technician Relationship Specialty Start Date End Date Bridger De Jesus MD [address] [facility] [address] [place] [address] PCP - General 12/23/16 Hiren Argueta MD [address] [place] [address] [address] [place] [address] Medical Oncologist/Patternmaker Metal Medical Oncology 12/20/20 Varinder Granda MD [address] [facility] [address] [place] [address] Radiation Oncologist Radiation Oncology 07/28/21 documented as of this encounter
--- OUTSIDE RECORDS SUMMARY | 2025-05-03 03:46 | XMS_ITS | Encounter Summary ---
Author Organization [facility] Address [address] [place] [address] Phone Care Team Providers Care System Auditor Name Role Phone Bridger De Jesus MD Primary Care Provider Hiren Argueta MD Unavailable [phone] Varinder Granda MD Unavailable Encounter Details Date Type Department Care Team (Late st Contact Info) Description 03/12/2022 Telephone [facility] [address] [facility] [address] [place] [address] Leida Vargas CPhT Social History Tobacco [...] of Binge Drinking Not on file 06/2022 [facility] [place] of Occupat ional Health - Occupational Stress Questionnaire Answer Date Recorded Do you feel stress - tense, restless, nervous, or anxious, or unable to sleep at night because your mind is troubled all the time - these days? 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 Not on file Not on file documented as of this encounter Plan of Treatment Not on file documented as of this encounter Visit Diagnoses Not on filedocumented in this encounter Care Teams System Auditor Relationship Specialty Start Date End Date Bridger De Jesus MD [address] [place] [address] PCP - General 12/23/16 Hiren Argueta MD [address] [place], [place] [id number] Medical Oncologist/Entry Level Receptionist Medical Oncology 12/20/20 Varinder Granda MD [address] [place], [place] [phone] Radiation Oncologist Radiation Oncology 07/28/21 documented as of this encounter
--- OUTSIDE RECORDS SUMMARY | 2025-05-03 03:46 | XMS_ITS | Encounter Summary ---
Author Organization [facility] Address [address] [place] [address] Phone Care Team Providers Care Trademark Paralegal Name Role Phone Bridger De Jesus MD Primary Care Provider Hiren Argueta MD Unavailable [phone] Varidner Granda MD Unavailable Encounter Details Date Type Department Care Team (Late st Contact Info) Description 07/14/2023 Telephone [facility] Oncology [address] [facility] [address] [place] [address] Selena Noonan, B.A. Social History Tobacco [...] more drinks on one occasion? 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 Not on file Not on file documented as of this encounter Plan of Treatment Not on file documented as of this encounter Visit Diagnoses Not on filedocumented in this encounter Care Teams Trademark Paralegal Relationship Specialty Start Date End Date Bridger De Jesus MD [address] [place] [address] PCP - General 12/23/16 Hiren Argueta MD [address] [place] [address] Medical Oncologist/Glue Jointer Feeder Medical Oncology 12/20/20 Varinder Granda MD [address] [place] [address] Radiation Oncologist Radiation Oncology 07/28/21 documented as of this encounter
--- OUTSIDE RECORDS SUMMARY | 2025-05-03 03:46 | XMS_ITS | Clinical Summary ---
Author Organization [facility] Address [address] [id number] Care Team Providers Care Shucker Name Role Phone Brigder De Jesus MD Primary Care Provider Hiren [...] a history of Dayana 4 + 4 [id number] prostate cancer status post prostatectomy in 2011 [...] 10/24/2024 Assessment & Plan (12/06/2024 2:01 PM DOUBLING MACHINE OPERATOR): Status post bilateral pulmonary thrombectomy. Patient [...] Paternal Grandfather Coleman Haokristi Solher Paternal Grandmother Jess Magno Sister 1 Linda Mobley Sister 2 Mirian Espinosa Social History Tobacco Use Types Packs/Day Years Used Date Smoking Tobacco: Former Cigars Q uit: 2010 Smokeless Tobacco: Former Tobacco Cessation:Counseling Given: Not Answered Alcohol Use Standard Drinks/Week Comments Yes 0 (1 standard drink = 0.6 oz pur e alcohol) social [facility] Utilities Answer Date Recorded In the [...] often do you attend chur ch or baptist services? Never 10/25/2024 Do you belong to any clubs o r organizations such as taoism groups, unions, fraternal or athletic groups, or [...] and heating? Not hard at all 10/25/2024 [facility] of Occupat ional Health - Occupational Stress [...] any time in the past 12 m [facility], were you homeless or living in a senior care (including now)? No 10/25/2024 Personal Safety Answer Date Recorded Have you ever been in or are you currently in a harmful physical or emotional relationship or is someone making you feel afraid or unsafe? 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 Not on file Not on file Obstetrics History Last Filed Vital Signs Vital Sign Reading Time Taken Comments Blood Pressure 102/65 11/23/2024 8:57 AM DOUBLING MACHINE OPERATOR Pulse 76 11/23/2024 8:57 AM DOUBLING MACHINE OPERATOR Temperature 36.6 C (97.9 F) 10/27/2024 10:45 AM DOUBLING MACHINE OPERATOR Respiratory Rate 22 10/27/2024 10:45 AM DOUBLING MACHINE OPERATOR Oxygen Saturation 95% 10/27/2024 10:45 AM DOUBLING MACHINE OPERATOR Inhaled Oxygen Concentration - - Weight 110.7 kg (244 lb) 11/23/2024 8:57 AM DOUBLING MACHINE OPERATOR Height 177.8 cm (5' 10) 11/23/2024 8:57 AM DOUBLING MACHINE OPERATOR Body Mass Index 35.01 11/23/2024 8:57 AM DOUBLING MACHINE OPERATOR Plan of Treatment Health Maintenance Due Date [...] Tdap) 11/23/2022 11/23/2012 Hemoglobin A1C 04/25/2025 10/25/2024 Influenza Vaccine (#1) 2025 , 08/24/2020, 12/01/2019, Additional history exists Fall Risk Assessment 10/27/2025 10/27/2024, 04/01/2022, 12/10/2021, Additional history exists eGFR 10/27/2025 10/27/2024, 10/03, 10/25/2024, Additional history exists Abdominal Aortic Aneurysm (A AA) Screen Completed 06/06/2022, 03/18/2022, 10/20/2018, Additional history exists Prostate Cancer Screening-PSA Discontinued , 08/18/2023, 05/27/2023, Additional history exists Medical Devices Implanted Type Area Iron Handler Device Identifier Shelf Expiration Date Model / Serial / Lot [employer] Porp [place] Prosthesis Ossicular 655 - [id number] Implanted:Qty: 1 on 04/03/2023 by Toribio Hay MD at [facility] Left: Ear [employer] [id number] 02/01/2028 655 / / [id number] [employer] System Closure Repair Femoral Artery Suture Mediated Perclose Prostyle 85524-63 - [id number] Implanted:Qty: 1 on 10/25/2024 by Tashi Alvarez MD at [facility] [employer] 08/01/2026 [id number] / / [id number] [employer] System Closure Repair Femoral Artery Suture Mediated Perclose Prostyle 84667-50 - [id number] Implanted:Qty: 1 on 10/25/2024 by Tashi Alvarez MD at [facility] [employer] 08/01/2026 [id number] / / [id number] Procedures Procedure Name Priority Date/Time Associated Diagnosis Comments EGFR Routine 10/27/2024 2:47 AM DOUBLING MACHINE OPERATOR HEMOGLOBIN A1C Routine 10/25/2024 2:47 AM DOUBLING MACHINE OPERATOR PSA DIAGNOSTIC Routine 02/17/2024 7:34 AM CDT Prostate cancer metastatic to multiple sites (HCC) CT CHEST ABDOMEN PELVIS W CONTRAST Schedule Routine, Read Routine (OP Routine) 06/06/2022 12:19 PM CDT Malignant neoplasm of prostate (HCC) SERUM LIPID PANEL Routine 01/08/2016 10: 51 PM DOUBLING MACHINE OPERATOR from Last 3 Months or Most Recently Relevant to Health Maintenance Results * eGFR (10/27/2024 2:47 AM DOUBLING MACHINE OPERATOR) eGFR 73 >=60 mL/min/1. 73 m2 Comment: [...] last reviewed 2021. Blood 10/27/2024 2:47 AM DOUBLING MACHINE OPERATOR 10/27/2024 3:12 AM DOUBLING MACHINE OPERATOR us Tashi Alvarez MD LAB BLOOD ORDERABLES Final Result [facility] [address] [facility] [place] [address] * (ABNORMAL) Hemoglobin A1c (10/25/2024 2:47 AM DOUBLING MACHINE OPERATOR) Hgb A1C 6.1(H) 4.0 - 5.6 % Estimated Average Glucose 128 mg/dL [facility] Comment: The ADA recommends reporting an estimated Average Glucose (eAG) with all Hemoglobin A1c results using the equation derived from a study of 507 normal and diabetic adults. Minority populations were underrepresented and children were not included. (Diabetes Care 31:3547-7046, 2008). The eAG is not equivalent to a fasting glucose. Blood 10/25/2024 2:47 AM DOUBLING MACHINE OPERATOR 10/25/2024 3:08 AM DOUBLING MACHINE OPERATOR Phyllis Zimmer TANKROOM TENDER LAB BLOOD ORDERABLES Fi nal Result Performing Organization Address [facility] Co de Phone Number [facility] [address] [facility] [place] [address] * PSA diagnostic (02/17/2024 7:34 [...] CDT 02/17/2024 8:05 AM CDT Keiko Contreras TANKROOM TENDER LAB BLOOD ORDERABLES Final Result Performing Organization Address [facility] Co de Phone Number [facility] [address] [facility]. [place] [address] * CT chest abdomen pelvis with contrast [...] Electronically signed by: Harsha Romeo M.D. Hiren Buddy Argueta MD IMG CT PROCEDURES Edit ed Result - Final * (ABNORMAL) Serum lipid panel (01/08/2016 10:51 PM DOUBLING MACHINE OPERATOR) Cholesterol 140 0 - 200 mg/dl HISTORICAL [...] revised 2012. Serum 01/08/2016 10:5 1 PM DOUBLING MACHINE OPERATOR José Sommer MD LAB BLOOD ORDERABLES Final Result HISTORICAL RESULTS from Last 3 Months or Most Recently Relevant to Health Maintenance Insurance W4 MEDICARE [facility] H[facility]/PPO Address: [address] [address] [place] [address] [employer] [facility] Address: [address] [place] [address] MEDICARE Advance Directives For more information, please contact: [phone] * Full Code (Latest Code Status on File) Date Activated Date Inactivated Comments 10/25/2024 2:08 AM 10/27/2024 8:05 PM Care Teams Shucker Relationship Specialty Start Date End Date Bridger De Jesus MD [address] [facility] [address] [place] [address] PCP - General 12/23/16 Hiren Argueta MD [address] [place], [place] [phone] Medical Oncologist/Relations Mgr Medical Oncology 12/20/20 Varinder Granda MD [address] [place], [place] [phone] Radiation Oncologist Radiation Oncology 07/28/21
--- OUTSIDE RECORDS SUMMARY | 2025-05-03 03:46 | XMS_ITS ---
Author Organization [facility] Address [address] [address] Care Team Providers Care Leather Etcher Name Role Phone rBidger De Jesus MD Primary Care Provider Hiren Argueta MD Unavailable [phone] Varinder Granda MD Unavailable Active Problems Patient Care Coordination No te Formatting of this note migh t be different from the original. Referring provider: Dr. Argueta Mr. Wayne Kiran is a 65-year-old with lung nodules. Patient has a history of Dayana 4 + 4 [id number] prostate cancer status post prostatectomy in 2011 [...] 10/24/2024 Assessment & Plan (12/06/2024 2:01 PM VP ORGANIZATIONAL DEVELOPMENT): Status post bilateral pulmonary thrombectomy. Patient doing [...]
--- OUTSIDE RECORDS SUMMARY | 2025-05-03 03:46 | XMS_ITS | Encounter Summary ---
Author Organization [facility] Address [address] [place] [address] Phone Care Team Providers Care Product Engineer Name Role Phone Bridger De Jesus MD Primary Care Provider Hiren Argueta MD Unavailable Varinder Granda MD Unavailable [phone] Encounter Details Date Type Department Care Team (Late st Contact Info) Description 08/26/2019 Telephone [facility] Oncology [address] [facility] [address] [place] [address] Lynnette Crespo, B.A. Social History Tobacco Use Types Packs/Day Years Used Date Smoking Tobacco: Former Cigars Smokeless Tobacco: Former Alcohol Use Standard Drinks/Week Comments Yes 0 (1 standard drink = 0.6 oz pur e alcohol) social Sex and Gender Information Value Date Recorded Sex Assigned at Not on file Legal Sex Male 3:18 AM COLD WORKING INSPECTOR Gender Identity Not on file Sexual Orientation Not on file documented as of this encounter Plan of Treatment Not on file documented as of this encounter Visit Diagnoses Not on filedocumented in this encounter Care Teams Product Engineer Relationship Specialty Start Date End Date Bridger De Jesus MD [address] [facility] [address] [place], [place] [phone] PCP - General 12/23/16 Hiren Argueta MD [address] [facility] [address] [place], [place] [phone] Medical Oncologist/Hat Copyist Medical Oncology 12/20/20 Varinder Granda MD [address] [facility] [address] [place], [place] [phone] Radiation Oncologist Radiation Oncology 07/28/21 documented as of this encounter
--- OUTSIDE RECORDS SUMMARY | 2025-05-03 03:46 | XMS_ITS | Encounter Summary ---
Author Organization [facility] [employer] [facility] Address [address] [place] [address] Phone Care Team Providers Care Finance Director Name Role Phone Bridger De Jesus MD Primary Care Provider Hiren Argueta MD Unavailable [phone] Varinder Granda MD Unavailable Encounter Details Date [...] of Binge Drinking Not on file 03/04 [facility] [place] of Occupat ional Health - Occupational Stress Questionnaire Answer Date Recorded Do you feel stress - tense, restless, nervous, or anxious, or unable to sleep at night because your mind is troubled all the time - these days? 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 [address] [place] [address] Medical Oncologist/Finishing Technician Medical Oncology 12/20/20 Varinder Granda MD [address] [facility] [address] [place] [address] Radiation Oncologist Radiation Oncology 07/28/21 documented as of this encounter
[2025-05-03 04:08] LABS: Hematocrit 46.0 % (42.0-52.0); Hemoglobin 14.6 g/dL (14.0-18.0); Immature Granulocyte Percent A 0.3 % (0-0.5); Lymphocytes Absolute Auto 1.99 K/mm3 (0.9-3.2); Mean Corpuscular HGB Conc 31.7 g/dl (32-36); Mean Corpuscular Hemoglobin 28.3 pg (26-34); Mean Corpuscular Volume 89.3 fl (80-100); Nucleated Red Blood Cells Absolute Auto 0.000 K/mm3 (0.0-0.012); Nucleated Red Blood Cells Perc 0.0 % (0.0-0.2); Platelet Count Result 276 k/mm3 (150-375); Red Blood Count 5.15 M/mm3 (4.6-6.20); White Blood Count 6.1 K/mm3 (4.5-10.0)
[2025-05-03 04:14] LABS: Add Urine Microscopic? YES; Appearance Urine Cloudy (Clear); Glucose Urine UA 3+ mg/dL (Negative); Leukocyte Esterase Ur Negative LEU/UL (Negative); Nitrate Urine Negative (Negative); Non Pathogenic Casts 0-2; Specific Grav Ur 1.025 (1.001-1.035)
--- NOTE | 2025-05-03 04:17 | ED.ABDPAIN ---
HPI - Abdominal Pain General Chief Complaint: Abdominal Pain Stated Complaint: abd pain Time Seen by Provider: 05/03/25 04:04 Source: patient and family Mode of arrival: ambulatory Limitations: no limitations History of Present Illness HPI narrative: Patient presents with acute onset left lower quadrant abdominal pain starting approximately 1 hour prior to arrival. He became nauseated and was clammy/diaphoretic but no vomiting. No recent constipation or diarrhea. He states it felt like a cramp. He has a history of PE and DVT and is on Eliquis for this. History of gallstones in 1992 as well as a history of kidney stone though never requiring surgical/operative intervention. He is on insulin for diabetes. Denies any fevers or chills. States pain like this has never happened before. Denies any diverticular diagnoses. Last colonoscopy was 1 year ago and reportedly normal, performed here. Last oral intake 9:00 p.m.. Abdominal surgeries include a laparoscopic prostatectomy performed at [facility]. States his symptoms were very intense an acute although they seem to have subsided now. Related Data Home Medications ?Medication ?Instructions ?Recorded ?Confirmed ?Last Taken ?Type multivitamin 1 tablet PO DAILY 10/20/19 04/19/25 03/04/23 History Allergies Allergy/AdvReac Type Severity Reaction Status Date / Time No Known Allergies Allergy Verified 05/03/25 03:44 [facility] Past Medical History Medical History Diabetes mellitus with insulin therapy Chronic anticoagulation Elliquis History of pulmonary embolism 2013 and 2023 Hx of deep venous thrombosis Tx with Xarelto many years ago Surgical History Surgical History History of colonoscopy approx 2023 History of thrombectomy [facility] 10/25/24 S/P arthroscopy of right shoulder History of knee replacement R hemiarthroplasty H/O radical prostatectomy radical prostatectomy in 2011, ureteral resection and artificial ureteral sphincter placement in 2015. H/O sinus surgery 2013 [place] teeth extracted 1969' Family History Family History Mother Asthma Family history of coronary artery disease Sibling Family history of diabetes mellitus in first degree relative Other Family history of arthritis Family history of type 2 diabetes mellitus Malignant neoplasm of prostate Social History Social History Smoking status: Former smoker Tobacco type: cigars Second hand tobacco smoke exposure: No Smoking end date: 11/02/08 Alcohol intake: current Alcohol use details: Social alcohol use Substance use: never Substance use type: does not use Living arrangements: with family Additional living arrangements comments: Occupation/Education: retired 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 HEAD: Normocephalic, atraumatic. EYES: Non injected, non icteric ENT: Nares clear, no rhinorrhea or epistaxis. Gross auditory acuity intact. NECK: Supple. No meningismus. CHEST: Speaking in full sentences. No respiratory distress. HEART: Regular rate and rhythm. . ABDOMEN: Obese but Soft, nondistended. No rigidity or guarding. Not peritoneal EXTREMITIES: Normal range of motion. No lower extremity edema. SKIN: Warm, dry, no rash. NEURO: No focal deficits. Alert and oriented. Answering questions. Following commands. Normal speech without aphasia or dysarthria. PSYCH: Normal mood and affect. Course Vital Signs Vital signs: Vital Signs Temperature 98.1 F 05/03/25 03:46 Pulse Rate 58 L 05/03/25 03:46 Respiratory Rate 18 05/03/25 03:46 Blood Pressure 115/78 05/03/25 03:46 Pulse Oximetry 100 05/03/25 03:46 Oxygen Delivery Room Air 05/03/25 03:46 Temperature 98.1 F 05/03/25 03:46 Pulse Rate 67 05/03/25 06:40 Respiratory Rate 18 05/03/25 06:40 Blood Pressure 126/78 05/03/25 06:40 Pulse Oximetry 99 05/03/25 06:40 Oxygen Delivery Room Air 05/03/25 03:46 MDM - Abdominal Pain MDM Narrative Medical decision making narrative: Patient presents with acute onset left lower quadrant abdominal pain approximately 1 hour prior to arrival and associated with nausea and diaphoresis/being clammy. In the emergency department he is afebrile with vital signs notable for mild bradycardia. Urinalysis unremarkable except for glucosuria. Patient states his symptoms have subsided by the time of my assessment. However, they do occur again at this time morphine ondansetron ordered. Patient reassessed at 6:10am and informed of his diagnosis. Excellent candidate for expulsion therapy. Discussed the regimen. Will give patient 1st dose tamsulosin and ketorolac. Advised strain urine. Patient used to see urologist Dr Matamoros who does still practice (in the [place] area) but will also be given referral for local. Given return precautions. Verified understanding. He and in agreement with the plan. After patient received 1st dose of ketorolac, I remembered that he is on Elliquis. Will not discharge with ketorolac for this reason and will use opiates instead. Also prescribed course of Zofran and tamsulosin. Differential Diagnosis Differential diagnosis: Likely abdominal pain, calculus of kidney, constipation, diverticulitis and small bowel obstruction Lab Data Attestation: I reviewed the patient's lab results. Lab results narrative: CBC generally unremarkable 05/03/25 04:01 05/03/25 04:01 Labs: Lab Results 05/03/25 Range/Units 04:01 WBC 6.1 (4.5-10.0) K/mm3 RBC 5.15 (4.6-6.20) M/mm3 Hgb 14.6 (14.0-18.0) g/dL Hct 46.0 (42.0-52.0) % MCV 89.3 (80-100) fl MCH 28.3 (26-34) pg MCHC 31.7 L (32-36) g/dl RDW 13.5 (11.5-14.5) % Plt Count 276 (150-375) k/mm3 MPV 9.0 (7.4-10.4) fl Immature Gran % (Auto) 0.3 (0-0.5) % Neut % (Auto) 55.7 (45.5-73.1) % Lymph % (Auto) 32.4 (18.3-44.2) % [place] % (Auto) 8.0 (2.6-8.5) % Eos % (Auto) 2.8 (0-4.4) % Baso % (Auto) 0.8 (0.2-1.2) % Lymph # (Auto) 1.99 (0.9-3.2) K/mm3 [place] # (Auto) 0.5 (0.1-0.6) K/mm3 Eos # (Auto) 0.2 (0-0.3) K/mm3 Baso # (Auto) 0.1 (0.0-0.1) K/mm3 Abs Immat Gran (auto) 0.02 (0.00-0.031) K/mm3 Absolute Neuts (auto) 3.4 (1.3-6.7) K/mm3 Absolute Nucleated RBC 0.000 (0.0-0.012) K/mm3 Nucleated RBC % 0.0 (0.0-0.2) % Sodium 143 (137-145) mmol/L Potassium 4.0 (3.4-5.0) mmol/L Chloride 106 (98-107) mmol/L Carbon Dioxide 28 (22-30) mmol/L Anion Gap 9 (4-12) mmol/L BUN 21 H (9-20) mg/dL Creatinine 1.21 (0.7-1.3) mg/dL Estim Creat Clear Calc 64 ml/min Estimated GFR 59 (59 - ) Glucose 134 H (65-110) mg/dL Calcium 9.0 (8.4-10.2) mg/dL Total Bilirubin 0.4 (0.2-1.3) mg/dL AST 39 (17-59) U/L ALT 33 (6-50) U/L Alkaline Phosphatase 58 (38-126) U/L Total Protein 7.6 (6.3-8.2) g/dL Albumin 4.4 (3.5-5.1) g/dL Lipase 77 (23-300) U/L Urine Color Yellow (Yellow) Urine Appearance Cloudy H (Clear) Urine pH 5.0 (5.0-9.0) Ur Specific [place] 1.025 (1.001-1.035) Urine Protein Negative (Negative) mg/dL Urine Glucose (UA) 3+ H (Negative) mg/dL Urine Ketones Negative (Negative) mg/dL Ur Blood (Man) Negative (Negative) Urine Nitrate Negative (Negative) Urine Bilirubin Negative (Negative) Urine Urobilinogen 0.2 (<2.0) mg/dL Leukocyte Esterase Rfl Negative (Negative) JOSE/UL Urine RBC 0-2 (0-2) /hpf Urine WBC 0-5 (0-3) /hpf Ur Squamous Epith Cells None seen (Few) /hpf Urine Bacteria None seen /hpf Urine Casts 0-2 Imaging Data Radiologist's impression: ITS Impressions Abdomen/Pelvis CT 05/03/25 05:56 Impression: Punctate left UVJ stone with mild left hydroureteronephrosis. Small bilateral fat-containing inguinal hernias. Discharge Plan Discharge Clinical Impression: Glucosuria, Calculus of ureterovesical junction (UVJ), Acute abdominal pain in left lower quadrant Bilateral inguinal hernia Qualifiers: Obstruction and gangrene presence: without obstruction or gangrene Recurrence: not specified as recurrent Qualified Code(s): K40.20 - Bilateral inguinal hernia, without obstruction or gangrene, not specified as recurrent Patient Disposition: Home Condition: Stable Instructions: Antibiotic Form, How to Strain Your Urine (ED), Opioid Safety (ED), Ureteral Stones (ED) Additional Instructions: Take medications as prescribed. Follow-up with Urology, either Dr Matamoros or the doctor listed below. Return to the emergency department any new or worsening symptoms such as intractable pain, intractable nausea/vomiting, fever >100.4. Patient Language: Lao Prescriptions: New hydrocodone-acetaminophen 5-325 mg tablet 1 tablet PO Q8H PRN (Reason: pain) Qty: 14 0RF tamsulosin 0.4 mg capsule 0.4 mg PO DAILY Qty: 12 0RF Rx Instructions: received first dose in ED 05/03 ondansetron 4 mg tablet,disintegrating 4 mg PO Q8H PRN (Reason: nausea and vomiting) Qty: 7 0RF No Action multivitamin Tablet 1 tablet PO DAILY Eliquis 5 mg tablet 5 mg PO BID Qty: 180 3RF atorvastatin [Lipitor] 10 mg tablet 10 mg PO DAILY Qty: 90 3RF (DME) blood-glucose meter [Precision Xtra Monitor] [facility] See Rx Instructions .Route Qty: 1 0RF Rx Instructions: As directed to check blood sugar daily (DME) Precision Xtra Test Strip See Rx Instructions .Route Qty: 100 3RF Rx Instructions: test daily albuterol sulfate 90 mcg/actuation HFA aerosol inhaler 1 puff inhalation Q6H PRN (Reason: shortness of breath or wheezing) Qty: 8.5 0RF Tresiba FlexTouch U-100 100 unit/mL (3 mL) insulin pen 35 unit subcut QHS Qty: 15 5RF fenofibrate 160 mg tablet 160 mg PO DAILY Qty: 90 2RF Jardiance 25 mg tablet 25 mg PO QAM Qty: 90 2RF (DME) pen needle, diabetic [UltiCare Pen Needle] 29 gauge x 1/2 needle See Rx Instructions .ROUTE .COMPLEX Qty: 100 3RF Dose Instruction: USE TO INJECT INSULIN EVERY DAY Rx Instructions: USE TO INJECT INSULIN EVERY DAY semaglutide 2 mg/dose (8 mg/3 mL) pen injector 2 mg subcut WEEKLY Qty: 3 5RF lisinopril 10 mg tablet 10 mg PO DAILY Qty: 90 2RF Follow-up/Referrals: Bridger De Jesus MD [Primary Care Provider] - Georgi Ghosh MD [Physician] - Time of Disposition: 06:31
[2025-05-03 04:23] LABS: Alanine Aminotransferase 33 U/L (6-50); Albumin Level 4.4 g/dL (3.5-5.1); Alkaline Phosphatase 58 U/L (38-126); Anion Gap 9 mmol/L (4-12); Aspartate Amino Transferase 39 U/L (17-59); Bilirubin,Total 0.4 mg/dL (0.2-1.3); Blood Urea Nitrogen 21 mg/dL (9-20); Calcium 9.0 mg/dL (8.4-10.2); Carbon Dioxide 28 mmol/L (22-30); Chloride 106 mmol/L (98-107); Estimated CRCL calculation 64 ml/min; Estimated Glomerular Filt Rate 59; Glucose 134 mg/dL (65-110); Lipase 77 U/L (23-300); Potassium 4.0 mmol/L (3.4-5.0); Sodium 143 mmol/L (137-145); Total Protein 7.6 g/dL (6.3-8.2)
--- OUTSIDE RECORDS SUMMARY | 2025-05-03 04:28 | XMS_ITS | Encounter Summary ---
Author Organization [facility] Address [address] [place] [address] Phone Care Team Providers Care Tool Engine Lathe Set Up Operator Name Role Phone Bridger De Jesus MD Primary Care Provider Hiren Argueta MD Unavailable [phone] Varinder Granda MD Unavailable Reason for Visit * Reason Onset Date Comments Scheduling Appointments 12/28/2020 patient has apt times Encounter Details Date Type Department Care Team (Late st Contact Info) Description 12/28/[address] 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 Gender Identity Not on file Sexual Orientation Not on file documented as of this encounter Plan of Treatment Not on file documented as of this encounter Visit Diagnoses Not on filedocumented in this encounter Care Teams Tool Engine Lathe Set Up Operator Relationship Specialty Start Date End Date Bridger De Jesus MD [address] [place] [address] PCP - General 12/23/16 Hiren Argueta MD [address] [place] [address] Medical Oncologist/Development Team Lead Medical Oncology 12/20/20 Varinder Granda MD [address] [place] [address] Radiation Oncologist Radiation Oncology 07/28/21 documented as of this encounter
--- OUTSIDE RECORDS SUMMARY | 2025-05-03 04:28 | XMS_ITS | Clinical Summary ---
Author Organization [facility] Address [address] [place] [address] Care Team Providers Care Marine Insulator Name Role Phone Bridger De Jesus MD Primary Care Provider [phone] Hiren Argueta MD Unavailable [phone] Allergies No known active allergies Medications multi [...] Primary osteoarthritis of left knee 10/24/2021 Diabetes ([facility] [place] [facility]) 10/24/2021 Secondary malignant neoplasm of lung ([facility] [place] [facility]) 05/23/2021 Prostate cancer metastatic t o multiple sites ([facility] [place] [facility]) 01/18/2013 Resolved Problems Problem Noted Date [...] CDT Gender Identity Male 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 Sexual Orientation Straight 12/09/2021 10 :05 AM QUALITY ASSURANCE DIRECTOR Last Filed Vital Signs Vital Sign Reading [...] - season) 2024 02/04/2021, 01/11/2021 PHQ-2 (Physician [place]) 11/02/2024 03/22/2024 DTaP, Tdap and Td Vaccines [...] this topic Medical Devices Implanted Type Area Kier Hand Device Identifier Shelf Expiration Date Model / Serial / Lot Implant Arthrex Premier Bio-Corkscrew 4.5mm - [id number] Implanted:Qty : 1 on 03/11/2024 by Stevenson aKn MD at [facility] Premier Right: Shoulder [employer] [id number] 08/01/2027 AR-1927B CF-45 / / [id number] Implant Premier Arthrex Bio Swivelock 4.75mm - [id number] Implanted:Qty : 2 on 03/11/2024 by Stevenson Kan MD at [facility] Premier Right: Shoulder [employer] [id number] 12/02/2027 AR-2324B CC / / [id number] Premier Suture Ar[employer] Bio Swivelock 5.5mm - [id number] Implanted:Qty : 1 on 03/11/2024 by Stevenson Kan MD at [facility] Premier Right: Shoulder [employer] [id number] 12/02/2027 AR-2323B CC / / [id number] Cement Bone Tobramycin Simplex - [id number] Implanted:Qty : 1 on 01/29/2022 by Stevenson Kan MD at [facility] Cement Implant Right: Knee [employer] [id number] 11/01/2022 6197-9-0 10 / / [id number] Cement Full Dose - [id number] Implanted:Qty : 1 on 01/29/2022 by Stevenson Kan MD at [facility] Cement Implant Right: Knee [employer] [id number] 04/01/2024 6191-1-0 10 / / [id number] Component Femoral 4 Knee Unicondylar Right Medial Anatomic Design Cemented Resurface Ibalance - [id number] Implanted:Qty : 1 on 01/29/2022 by Stevenson Kan MD at [facility] Knee Components Right: Femur [employer] [id number] 07/02/2025 AR-501-U FRD / / [id number] Ibalance Uka Tibial Tray Implanted:Qty : 1 on 01/29/2022 by Stevenson Kan MD at [facility] Knee Components Right: Tibia [employer] [id number] 03/01/2025 AR-511-T 4R / / [id number] Ibalance Uka Tibial Bearing Implant Vitamin E Implanted:Qty : 1 on 01/29/2022 by Stevenson Kan MD at [facility] Knee Components Right: Tibia [employer] [id number] 03/01/2026 AR-521-T BD0 / / [id number] Procedures Procedure Name Priority Date/Time Associated [...] Maintenance Insurance MEDICARE [employer] UMR Care Teams Marine Insulator Relationship Specialty Start Date End Date Bridger De Jesus MD [address] [place] [address] PCP - General FAMILY PRACTICE 08/27/21 Hiren Argueta MD [address] [facility] [address] MEDICAL ONCOLOGY, [address] [place] [address] MEDICAL ONCOLOGY 02/11/24
--- OUTSIDE RECORDS SUMMARY | 2025-05-03 04:28 | XMS_ITS | Continuity of Care Document ---
Author Name [facility] Organization [facility] Care Team Providers Care Director Business Development Name Role Phone [facility] Unavailable Unavailable Problems Combined list of problems from [facility] and [facility] facilities. It does not include entries that were removed or entered in error. Problem Status Onset Date Problem Type Date of Resolution Comments Source Benign hypertension Active Condition [facility] Bilateral hearing loss Active Condition [facility] Carcinoma of prostate Active Condition Jul 14, 2016 Entered By: GRISEL SON Comment: s/p surgery & radiation [facility] Diabetes mellitus Active Condition [facility] Hyperlipidemia Active Condition [facility] Medications Combined list of outpatient medications from [facility] and [facility] facilities.Medications provided include 1) outpatient medications from the last 15 months, and 2) patient-reported medications. Medication Details Route Status Patient Instructions Prescription Expires Prescription Number Last Dispense Date Ordering Provider Order Date Order Qty Source ATORVASTATI N TAB TAKE BY MOUTH EVERY EVENING ORAL ACTIVE ADELAIDA,DAVID A D 2015 [facility] CHOLECALCIF DEREJE 50MCG (2,000UNIT) TAB TAKE ONE TABLET BY MOUTH ONCE A DAY ORAL ACTIVE ADELAIDA,DAVID A D 2015 [facility] LISINOPRIL TAB TAKE BY MOUTH ONCE A DAY ORAL ACTIVE ADELAIDA,DAVID A D 2015 [facility] METFORMIN HCL 500MG 24HR TAB,SA TAKE ONE TABLET BY MOUTH ONCE A DAY ORAL ACTIVE ADELAIDA,DAVID A D 2015 [facility] SITAGLIPTIN PHOSPHATE 100MG TAB TAKE ONE TABLET BY MOUTH ONCE A DAY ORAL ACTIVE ADELAIDA,DAVID A D 2015 [facility] Immunizations Combined list of available immunizations from the Department of Defense and Veterans Affairs facilities. Immunization Series Date Given Administered By Site Reaction Lot Number CVX Code Drug Instrument Tester Status Comments Source INFLUENZA, HIGH-DOSE, QUADRIVALENT 2019 197 complet ed HISTORICA L INFORMATI ON - FROM OTHER PROVIDER, Partner: [facility]. Administe red by: Stroz FriedbergbyfieldFAZUA Pharmacy Clinician (NPI=Not Provided) . Partner 43 Lot#: [id number] Mfr: sanofi pasteur; Dosage: [id number] ml QUINCY Ibarra [facility] INFLUENZA, TRIVALENT, ADJUVANTED 2019 168 complet ed HISTORICA L INFORMATI ON - FROM OTHER PROVIDER, Partner: [facility]. Administe red by: [facility] Pharmacy Clinician (NPI=Not Provided) . Partner 43 Lot#: [id number] Mfr: SEQIRUS QUINCY Ibarra [facility] INFLUENZA, INJECTABLE, QUADRIVALENT, PRESERVATIVE FREE 2017 150 complet ed 02, Partner: [facility]. Administe red by: [facility] Clinician (NPI=Not Provided) . Partner 43 Lot#: [id number] Mfr: GlaxoSmit hKline QUINCY Ibarra [facility] ZOSTER LIVE 2015 121 complet ed [facility] TDAP 2015 115 complet ed Right Deltoid [facility] Encounters Combined list of: 1) Encounters from Department of Veterans Affairs facilities going backup to the last 18 months, not all VA inpatient encounters are included; 2) Encounters from the Department of [facility] facilities going backup to 280 months. Location Location Details Encounter Type Encounter Number Reason For Visit Attending Provider ADM Date DC Date Status Disposition Source [facility] Outpatient Encounter [id number] 03/09 [facility] Outpatient Encounter [id number] 07/09 [facility] Outpatient Encounter [id number] SUMA DAMIAN 09/01 [facility] Social History Combined list of available smoking, tobacco, and other social history from Department of Defense and Veterans Affairs facilities. Social History Type Response Date Comment Sour e Tobacco smoking status NHIS QUIT TOBACCO >7 YEARS AGO 07/14/2016 [facility] Advance Directives List of completed, amended, or rescinded Advance Directives on record at Department of Veterans Affairs facilities. An actual copy of the Directive is not included. Date Advance Directive Provider Source 03/31/2017 ADVANCE DIRECTIVE DISCUSSION [facility]
--- OUTSIDE RECORDS SUMMARY | 2025-05-03 04:28 | XMS_ITS | Encounter Summary ---
Author Organization [facility] [facility] Address [address] [place] [address] Phone Care Team Providers Care Nurse Aide Evaluator Name Role Phone Bridger De Jesus MD Primary Care Provider Hiren Argueta MD Unavailable [phone] Varinder Granda MD Unavailable Reason for Visit * Reason Onset Date Comments SCHEDULE UPDATE 05/16/2021 Encounter Details Date Type Department Care Team (Late st Contact Info) Description 05/16/2021 Telephone [facility] Oncology [address] [place] [address] Krystyna Valenzuela, [facility] SCHEDULE UPDATE Social History Tobacco Use Types Packs/Day Years Used Date Smoking Tobacco: Former Cigars Q uit: 2010 Smokeless Tobacco: Former Alcohol Use Standard Drinks/Week Comments Yes 0 (1 standard drink = 0.6 oz pur e alcohol) social Sex and Gender Information Value Date Recorded Sex Assigned at Not on file Legal Sex Male 3:[address] Gender Identity Not on file Sexual Orientation Not on file 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 Not on file Not on file documented as of this encounter Plan of Treatment Not on file documented as of this encounter Visit Diagnoses Not on filedocumented in this encounter Care Teams Nurse Aide Evaluator Relationship Specialty Start Date End Date Bridger De Jesus MD [address] [place] [address] PCP - General 12/23/16 Hiren Argueta MD [address] [place] [address] Medical Oncologist/Costumed Character Medical Oncology 12/20/20 Varinder Granda MD [address] [place] [address] Radiation Oncologist Radiation Oncology 07/28/21 documented as of this encounter
--- OUTSIDE RECORDS SUMMARY | 2025-05-03 04:28 | XMS_ITS | Encounter Summary ---
Author Organization [facility] Address [address] [place] [address] Care Team Providers Care Fitter Placer Name Role Phone Bridger De Jesus MD Primary Care Provider Hiren Argueta MD Unavailable Varinder Granda MD Unavailable Encounter Details Date Type Department Care Team (Late st Contact Info) Description 03/11/2021 Telephone [facility] Imaging [address] [place], [place] [id number] Tricia Light, Social History Tobacco Use Types Packs/Day Years Used Date Smoking Tobacco: Former Cigars Smokeless Tobacco: Former Alcohol Use Standard Drinks/Week Comments Yes 0 (1 standard drink = 0.6 oz pur e alcohol) social Sex and Gender Information Value Date Recorded Sex Assigned at Not on file 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 Gender Identity Not on file Sexual Orientation Not on file documented as of this encounter Plan of Treatment Not on file documented as of this encounter Visit Diagnoses Not on filedocumented in this encounter Care Teams Fitter Placer Relationship Specialty Start Date End Date Bridger De Jesus MD [address] [facility] [address] [place] [address] PCP - General 12/23/16 Hiren Argueta MD [address] [place] [address] [address] [place] [address] Medical Oncologist/Phd Intern Medical Oncology 12/20/20 Varinder Granda MD [address] [place] [address] Radiation Oncologist Radiation Oncology 07/28/21 documented as of this encounter
--- OUTSIDE RECORDS SUMMARY | 2025-05-03 04:28 | XMS_ITS | Encounter Summary ---
Author Organization [facility] [employer] [facility] Address [address] [place] [address] Phone Care Team Providers Care Interactive Account Manager Name Role Phone Bridger De Jesus MD Primary Care Provider Hiren Argueta MD Unavailable [phone] Varinder Granda MD Unavailable Encounter Details Date Type Department Care Team (Late st Contact Info) Description 07/14/2023 Telephone [facility] Oncology [address] [facility] [address] [place] [address] Selena Noonan, B.A. Social History Tobacco [...] more drinks on one occasion? 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 Not on file Not on file documented as of this encounter Plan of Treatment Not on file documented as of this encounter Visit Diagnoses Not on filedocumented in this encounter Care Teams Interactive Account Manager Relationship Specialty Start Date End Date Bridger De Jesus MD [address] [place] [address] PCP - General 12/23/16 Hiren Argueta MD [address] [place] [address] Medical Oncologist/Milling Machine Set Up Operator Medical Oncology 12/20/20 Varinder Granda MD [address] [place] [address] Radiation Oncologist Radiation Oncology 07/28/21 documented as of this encounter
--- OUTSIDE RECORDS SUMMARY | 2025-05-03 04:29 | XMS_ITS | Encounter Summary ---
Author Organization [facility] [employer] [facility] Address [address] [place] [address] Phone Care Team Providers Care Sub Assembly Team Worker Name Role Phone Bridger De Jesus MD Primary Care Provider Hiren Argueta MD Unavailable [phone] Varinder Granda MD Unavailable Encounter Details Date Type Department Care Team (Late st Contact Info) Description 03/12/2022 Telephone [facility] Oncology [address] [facility] [address] [place] [address] Leida Vargas CPhT Social History Tobacco [...] of Binge Drinking Not on file 06/2022 [facility] [place] of Occupat ional Health - Occupational Stress Questionnaire Answer Date Recorded Do you feel stress - tense, restless, nervous, or anxious, or unable to sleep at night because your mind is troubled all the time - these days? 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 Not on file Not on file documented as of this encounter Plan of Treatment Not on file documented as of this encounter Visit Diagnoses Not on filedocumented in this encounter Care Teams Sub Assembly Team Worker Relationship Specialty Start Date End Date Bridger De Jesus MD [address] [place] [address] PCP - General 12/23/16 Hiren Argueta MD [address] [place], [place] [id number] Medical Oncologist/Area Director Of Home Health Sales Medical Oncology 12/20/20 Varinder Granda MD [address] [place], [place] [phone] Radiation Oncologist Radiation Oncology 07/28/21 documented as of this encounter
--- OUTSIDE RECORDS SUMMARY | 2025-05-03 04:29 | XMS_ITS ---
Author Organization [facility] Address [address] [id number] Care Team Providers Care Line Analyst Name Role Phone Bridger De Jesus MD Primary Care Provider Hiren Argueta MD Unavailable Varinder Granda MD Unavailable Active Problems Patient Care Coordination No te Formatting of this note migh t be different from the original. Referring provider: Dr. Argueta Mr. Wayne Kiran is a 65-year-old with lung nodules. Patient has a history of Dayana 4 + 4 [id number] prostate cancer status post prostatectomy in 2011 [...] 10/24/2024 Assessment & Plan (12/06/2024 2:01 PM ELECTRICIAN CONSTRUCTOR SUPERVISOR): Status post bilateral pulmonary thrombectomy. Patient doing [...]
--- OUTSIDE RECORDS SUMMARY | 2025-05-03 04:29 | XMS_ITS | Encounter Summary ---
Author Organization [facility] Address [address] [place] [address] Phone Care Team Providers Care Sock Turner Name Role Phone Bridger De Jesus MD Primary Care Provider Hiren Argueta MD Unavailable [phone] Varinder Granda MD Unavailable Encounter Details Date [...] of Binge Drinking Not on file 03/04 [place] of Occupat ional Health - Occupational Stress Questionnaire Answer Date Recorded Do you feel stress - tense, restless, nervous, or anxious, or unable to sleep at night because your mind is troubled all the time - these days? 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
--- OUTSIDE RECORDS SUMMARY | 2025-05-03 04:29 | XMS_ITS | Clinical Summary ---
Author Organization [facility] Address [address] [id number] Care Team Providers Care Electrician Substation Name Role Phone Bridger De Jesus MD [...] a history of Dayana 4 + 4 [id number] prostate cancer status post prostatectomy in 2011 [...] 10/24/2024 Assessment & Plan (12/06/2024 2:01 PM WIND COMMISSIONING TECHNICIAN): Status post bilateral pulmonary thrombectomy. Patient doing [...] = 0.6 oz pur e alcohol) social [facility] Utilities Answer Date Recorded In the [...] often do you attend chur ch or confucianist services? Never 10/25/2024 Do you belong to any clubs o r organizations such as shinto groups, unions, fraternal or athletic groups, or [...] and heating? Not hard at all 10/25/2024 [facility] of Occupat ional Health - [...] any time in the past 12 m [facility], were you homeless or living in a group home (including now)? No 10/25/2024 Personal Safety Answer Date Recorded Have you ever been in or are you currently in a harmful physical or emotional relationship or is someone making you feel afraid or unsafe? 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 on file Not on file Not on file Obstetrics History Last Filed Vital Signs Vital Sign Reading Time Taken Comments Blood Pressure 102/65 11/23/2024 8:57 AM WIND COMMISSIONING TECHNICIAN Pulse 76 11/23/2024 8:57 AM WIND COMMISSIONING TECHNICIAN Temperature 36.6 C (97.9 F) 10/27/2024 10:45 AM WIND COMMISSIONING TECHNICIAN Respiratory Rate 22 10/27/2024 10:45 AM WIND COMMISSIONING TECHNICIAN Oxygen Saturation 95% 10/27/2024 10:45 AM WIND COMMISSIONING TECHNICIAN Inhaled Oxygen Concentration - - Weight 110.7 kg (244 lb) 11/23/2024 8:57 AM WIND COMMISSIONING TECHNICIAN Height 177.8 cm (5' 10) 11/23/2024 8:57 AM WIND COMMISSIONING TECHNICIAN Body Mass Index 35.01 11/23/2024 8:57 AM WIND COMMISSIONING TECHNICIAN Plan of Treatment Health Maintenance Due Date [...] history exists Medical Devices Implanted Type Area Retail Chain Store Area Supervisor Device Identifier Shelf Expiration Date Model / Serial / Lot Karlie Medical Porp [place] Prosthesis Ossicular 655 - [id number] Implanted:Qty: 1 on 04/03/2023 by Toribio Hay MD at [facility] Left: Ear [employer]ie Medical [id number] 02/01/2028 655 / / [id number] [employer] V[employer] System Closure Repair Femoral Artery Suture Mediated Perclose Prostyle 75572-86 - [id number] Implanted:Qty: 1 on 10/25/2024 by Tashi Alvarez MD at [facility] [employer] 08/01/2026 [id number] / / [id number] [employer] System Closure Repair Femoral Artery Suture Mediated Perclose Prostyle 92572-33 - [id number] Implanted:Qty: 1 on 10/25/2024 by Tashi Alvarez MD at [facility] [employer] 08/01/2026 [id number] / / [id number] Procedures Procedure Name Priority Date/Time Associated Diagnosis Comments EGFR Routine 10/27/2024 2:47 AM WIND COMMISSIONING TECHNICIAN HEMOGLOBIN A1C Routine 10/25/2024 2:47 AM WIND COMMISSIONING TECHNICIAN PSA DIAGNOSTIC Routine 02/17/2024 7:34 AM CDT Prostate cancer metastatic to multiple sites (HCC) CT CHEST ABDOMEN PELVIS W CONTRAST Schedule Routine, Read Routine (OP Routine) 06/06/2022 12:19 PM CDT Malignant neoplasm of prostate (HCC) SERUM LIPID PANEL Routine 01/08/2016 10: 51 PM WIND COMMISSIONING TECHNICIAN from Last 3 Months or Most Recently Relevant to Health Maintenance Results * eGFR (10/27/2024 2:47 AM WIND COMMISSIONING TECHNICIAN) eGFR 73 >=60 mL/min/1. 73 m2 Comment: [...] last reviewed 2021. Blood 10/27/2024 2:47 AM WIND COMMISSIONING TECHNICIAN 10/27/2024 3:12 AM WIND COMMISSIONING TECHNICIAN us Tashi Alvarez MD LAB BLOOD ORDERABLES Final Result [id number] [address] [facility] Department [place] [address] * (ABNORMAL) Hemoglobin A1c (10/25/2024 2:47 AM WIND COMMISSIONING TECHNICIAN) Hgb A1C 6.1(H) 4.0 - 5.6 % Estimated Average Glucose 128 mg/dL [facility] Comment: The ADA recommends reporting an estimated Average Glucose (eAG) with all Hemoglobin A1c results using the equation derived from a study of 507 normal and diabetic adults. Minority populations were underrepresented and children were not included. (Diabetes Care 31:3119-7050, 2008). The eAG is not equivalent to a fasting glucose. Blood 10/25/2024 2:47 AM WIND COMMISSIONING TECHNICIAN 10/25/2024 3:08 AM WIND COMMISSIONING TECHNICIAN Phyllis Zimmer REAL ESTATE SERVICES COORDINATOR LAB BLOOD ORDERABLES Fi nal Result Performing Organization Address [facility] Co de Phone Number [facility] [address] [facility] Department [place] [address] * PSA diagnostic (02/17/2024 7:34 [...] CDT 02/17/2024 8:05 AM CDT Keiko Contreras REAL ESTATE SERVICES COORDINATOR LAB BLOOD ORDERABLES Final Result Performing Organization Address [facility] Co de Phone Number [facility] [address] [facility]. [place] [address] * CT chest abdomen pelvis with contrast [...] (ABNORMAL) Serum lipid panel (01/08/2016 10:51 PM WIND COMMISSIONING TECHNICIAN) Cholesterol 140 0 - 200 mg/dl HISTORICAL [...] revised 2012. Serum 01/08/2016 10:5 1 PM WIND COMMISSIONING TECHNICIAN José Sommer MD LAB BLOOD ORDERABLES Final Result HISTORICAL RESULTS from Last 3 Months or Most Recently Relevant to Health Maintenance Insurance trinket MEDICARE [facility] HMO/PPO Address: [address] [address] [place] [address] [employer] MEDICARE Advance Directives For more information, please contact: [phone] * Full Code (Latest Code Status on File) Date Activated Date Inactivated Comments 10/25/2024 2:08 AM 10/27/2024 8:05 PM Care Teams Electrician Substation Relationship Specialty Start Date End Date Bridger De Jesus MD [address] [facility] [address] [place] [address] PCP - General 12/23/16 Hiren Argueta MD [address] [place], [place] [phone] Medical Oncologist/Wallet Assembler Medical Oncology 12/20/20 Varinder Granda MD [address] [place], [place] [phone] Radiation Oncologist Radiation Oncology 07/28/21
--- OUTSIDE RECORDS SUMMARY | 2025-05-03 04:29 | XMS_ITS | Referral Summary ---
Author Organization [facility] Address [address] [id number] Care Team Providers Care Leather Heel Breaster Name Role Phone Bridger De Jesus MD [...] a history of Dayana 4 + 4 [id number] prostate cancer status post prostatectomy in 2011 [...] 10/24/2024 Assessment & Plan (12/06/2024 2:01 PM DURALUMIN METALWORKER): Status post bilateral pulmonary thrombectomy. Patient doing [...] = 0.6 oz pur e alcohol) social [facility] Utilities Answer Date Recorded In the [...] any clubs o r organizations such as episcopal groups, unions, fraternal or athletic groups, or [...] heating? Not hard at all 10/25/2024 [facility] [place] of Occupat ional Health - Occupational Stress [...] any time in the past 12 m [facility], were you homeless or living in a snf (including now)? No 10/25/2024 Personal Safety Answer Date Recorded Have you ever been in or are you currently in a harmful physical or emotional relationship or is someone making you feel afraid or unsafe? 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 Not on file Not on file Last Filed Vital Signs Vital Sign Reading Time Taken Comments Blood Pressure 102/65 11/23/2024 8:57 AM DURALUMIN METALWORKER Pulse 76 11/23/2024 8:57 AM DURALUMIN METALWORKER Temperature 36.6 C (97.9 F) 10/27/2024 10:45 AM DURALUMIN METALWORKER Respiratory Rate 22 10/27/2024 10:45 AM DURALUMIN METALWORKER Oxygen Saturation 95% 10/27/2024 10:45 AM DURALUMIN METALWORKER Inhaled Oxygen Concentration - - Weight 110.7 kg (244 lb) 11/23/2024 8:57 AM DURALUMIN METALWORKER Height 177.8 cm (5' 10) 11/23/2024 8:57 AM DURALUMIN METALWORKER Body Mass Index 35.01 11/23/2024 8:57 AM DURALUMIN METALWORKER Plan of Treatment Not on file Medical Devices Implanted Type Area Doctor Of Veterinary Medicine Device Identifier Shelf Expiration Date Model / Serial / Lot Karlie Melendez Porp [place] Prosthesis Ossicular 655 - [id number] Implanted:Qty: 1 on 04/03/2023 by Toribio Hay MD at [facility] Left: Ear Karlie Melendez [id number] 02/01/2028 655 / / [id number] [employer]nell V[employer] System Closure Repair Femoral Artery Suture Mediated Perclose Prostyle 90924-72 - [id number] Implanted:Qty: 1 on 10/25/2024 by Tashi Alvarez MD at [facility] [employer] 08/01/2026 [id number] / / [id number] [employer]nell V[employer] System Closure Repair Femoral Artery Suture Mediated Perclose Prostyle 59760-94 - [id number] Implanted:Qty: 1 on 10/25/2024 by Tashi Alvarez MD at [facility] [employer] 08/01/2026 [id number] / / [id number] Procedures Procedure Name Priority Date/Time Associated Diagnosis Comments EGFR Routine 10/27/2024 2:47 AM DURALUMIN METALWORKER HEMOGLOBIN A1C Routine 10/25/2024 2:47 AM DURALUMIN METALWORKER PSA DIAGNOSTIC Routine 02/17/2024 7:34 AM CDT Prostate cancer metastatic to multiple sites (HCC) CT CHEST ABDOMEN PELVIS W CONTRAST Schedule Routine, Read Routine (OP Routine) 06/06/2022 12:19 PM CDT Malignant neoplasm of prostate (HCC) SERUM LIPID PANEL Routine 01/08/2016 10: 51 PM DURALUMIN METALWORKER from Last 3 Months or Most Recently Relevant to Health Maintenance Results * eGFR (10/27/2024 2:47 AM DURALUMIN METALWORKER) eGFR 73 >=60 mL/min/1. 73 m2 Comment: [...] last reviewed 2021. Blood 10/27/2024 2:47 AM DURALUMIN METALWORKER 10/27/2024 3:12 AM DURALUMIN METALWORKER Tashi Alvarez MD LAB BLOOD ORDERABLES Final Result Performing Organization Address [facility] Co de Phone Number [address] [place] [address] * (ABNORMAL) Hemoglobin A1c (10/25/2024 2:47 AM DURALUMIN METALWORKER) Hgb A1C 6.1(H) 4.0 - 5.6 % Estimated Average Glucose 128 mg/dL [facility] Comment: The ADA recommends reporting an estimated Average Glucose (eAG) with all Hemoglobin A1c results using the equation derived from a study of 507 normal and diabetic adults. Minority populations were underrepresented and children were not included. (Diabetes Care 31:9196-9052, 2008). The eAG is not equivalent to a fasting glucose. Blood 10/25/2024 2:47 AM DURALUMIN METALWORKER 10/25/2024 3:08 AM DURALUMIN METALWORKER Phyllis Zimmer NP LAB BLOOD ORDERABLES Fi nal Result Performing Organization Address [facility] Co de Phone Number [address] [place], [place] [phone] * PSA diagnostic (02/17/2024 7:34 AM CDT) [...] LAB BLOOD ORDERABLES Final Result [facility] [address] [facility]. Department of [employer] [place] [address] * CT chest abdomen pelvis with contrast [...] (ABNORMAL) Serum lipid panel (01/08/2016 10:51 PM DURALUMIN METALWORKER) Cholesterol 140 0 - 200 mg/dl HISTORICAL [...] revised 2012. Serum 01/08/2016 10:5 1 PM DURALUMIN METALWORKER José Sommer MD LAB BLOOD ORDERABLES Final Result HISTORICAL RESULTS from Last 3 Months or Most Recently Relevant to Health Maintenance Insurance [employer] MEDICARE [facility] HMO/PPO Address: [address] [address] [place] [address] [employer] [facility] MEDICARE Advance Directives For more information, please contact: [phone] * Full Code (Latest Code Status on File) Date Activated Date Inactivated Comments 10/25/2024 2:08 AM 10/27/2024 8:05 PM Care Teams Leather Heel Breaster Relationship Specialty Start Date End Date Bridger De Jesus MD [address] [place] [address] PCP - General 12/23/16 Hiren Argueta MD [address] [place] [address] Medical Oncologist/Hand Clipper Medical Oncology 12/20/20 Varinder Granda MD [address] [place] [address] Radiation Oncologist Radiation Oncology 07/28/21
--- OUTSIDE RECORDS SUMMARY | 2025-05-03 04:29 | XMS_ITS | Encounter Summary ---
Author Organization [facility] Address [address] [place] [address] Phone Care Team Providers Care Protective Officer Name Role Phone Bridger De Jesus MD Primary Care Provider Hiren Argueta MD Unavailable [phone] Varinder Granda MD Unavailable Encounter Details Date Type Department Care Team (Late st Contact Info) Description 08/26/2019 Telephone [facility] Oncology 10 [facility] [address] [place] [address] Lynnette Crespo, B.A. Social History Tobacco Use Types Packs/Day Years Used Date Smoking Tobacco: Former Cigars Smokeless Tobacco: Former Alcohol Use Standard Drinks/Week Comments Yes 0 (1 standard drink = 0.6 oz pur e alcohol) social Sex and Gender Information Value Date Recorded Sex Assigned at Not on file Legal Sex Male 3:[address] Gender Identity Not on file Sexual Orientation Not on file documented as of this encounter Plan of Treatment Not on file documented as of this encounter Visit Diagnoses Not on filedocumented in this encounter Care Teams Protective Officer Relationship Specialty Start Date End Date Bridger De Jesus MD [address] [facility] [address] [place], [place] [address] PCP - General 12/23/16 Hiren Argueta MD [address] [facility] [address] [place], [place] [phone] Medical Oncologist/Senior Applications Engineer Medical Oncology 12/20/20 Varinder Granda MD [address] [facility] [address] [place], [place] [phone] Radiation Oncologist Radiation Oncology 07/28/21 documented as of this encounter
--- NOTE | 2025-05-03 04:38 | PC.NURSE ---
This RN spoke with Anny from [facility] transfer center. She verbally states pt was accepted by Dr. Thurston and would call us back with a bed assignment when available.
[2025-05-03] MEDS: MORPHINE SULFATE (*CRX) 2 MG/ML INJ IV PUSH (05:45)
[2025-05-03] MEDS: ONDANSETRON INJ 4 MG/2 ML VIAL IV PUSH (05:45)
[2025-05-03] MEDS: KETOROLAC 15 MG/ML VIAL (*BKC) IV PUSH (06:15)
[2025-05-03] MEDS: TAMSULOSIN HCL 0.4 MG CAPSULE PO (06:15)
== END 2025-05-03 06:41 | disposition home or self-care (01) ==
PROVIDERS: Emergency Provider Student in an Organized Health Care Education/Training Program; PCP Family Medicine
DX: N13.2 Hydronephrosis with renal and ureteral calculous obstruction (principal); K40.20 Bilateral inguinal hernia, without obstruction or gangrene, not specified as recurrent; E11.69 Type 2 diabetes mellitus with other specified complication; R81 Glycosuria; Z96.651 Presence of right artificial knee joint; Z86.718 Personal history of other venous thrombosis and embolism; Z86.711 Personal history of pulmonary embolism; Z87.891 Personal history of nicotine dependence; Z90.79 Acquired absence of other genital organ(s); Z79.4 Long term (current) use of insulin; Z79.01 Long term (current) use of anticoagulants; Z79.84 Long term (current) use of oral hypoglycemic drugs; Z79.85 Long-term (current) use of injectable non-insulin antidiabetic drugs
CPT/HCPCS: 36415; 74177; 80053; 81001; 83690; 85025; 96374; 96375; 99284; A9270; J1885; J2270; J2405; Q9967

== ENCOUNTER 2025-08-29 09:56 | Outpatient (CLI) | payer MEDICARE, OTHER, SELFPAY ==
--- NOTE | ~2025-08-29 | XR_ITS ---
EXAMINATION: XR hand RT min 3V, 08/29/2025 10:05 CDT HISTORY: M18.11 - Unilateral primary osteoarthritis of first carpo... COMPARISON: No comparisons available. Findings: No acute fracture or malalignment. Moderate to severe degenerative changes of the first metacarpal carpal joint, moderate degenerative changes of the distal interphalangeal joints, no erosions identified Soft tissues unremarkable. Impression: No acute fracture or malalignment. Reviewed, dictated and finalized at location P. Impression: No acute fracture or malalignment.
--- OUTSIDE RECORDS SUMMARY | 2025-08-29 11:21 | XMS_ITS | Encounter Summary ---
Author Organization [facility] Address [address] [place] [address] Phone Care Team Providers Care Sales Designer Name Role Phone Bridger De Jesus MD Primary Care Provider Hiren Argueta MD Unavailable [phone] Varinder Granda MD Unavailable Encounter Details Date Type Department Care Team (Late st Contact Info) Description 03/12/2022 Telephone [facility] Medicine Oncology 10 [facility] [address] [place] [address] Leida Vargas CPhT Social History Tobacco [...] of Binge Drinking Not on file 06/2022 [facility] [place] of Occupat ional Health - Occupational Stress Questionnaire Answer Date Recorded Do you feel stress - tense, restless, nervous, or anxious, or unable to sleep at night because your mind is troubled all the time - these days? 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 [address] [place], [place] [phone] Medical Oncologist/Job Recruiter Medical Oncology 12/20/20 Varinder Granda MD [address] [facility] [address] [place], [place] [id number] Radiation Oncologist Radiation Oncology 07/28/21 documented as of this encounter
--- OUTSIDE RECORDS SUMMARY | 2025-08-29 11:21 | XMS_ITS | Encounter Summary ---
Author Organization [facility] Address [address] [place] [address] Phone Care Team Providers Care Cryptographic Center Specialist Name Role Phone Bridger De Jesus MD Primary Care Provider Hiren Argueta MD Unavailable [phone] Varinder Granda MD Unavailable Encounter Details Date Type Department Care Team (Late st Contact Info) Description 07/14/2023 Telephone [facility] Medicine Oncology [address] [facility] [address] [place] [address] Selena Noonan, B.A. Social History Tobacco [...] more drinks on one occasion? 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 Not on file Not on file documented as of this encounter Plan of Treatment Not on file documented as of this encounter Visit Diagnoses Not on filedocumented in this encounter Care Teams Cryptographic Center Specialist Relationship Specialty Start Date End Date Bridger De Jesus MD [address] [place] [address] PCP - General 12/23/16 Hiren Argueta MD [address] [place] [address] Medical Oncologist/Database Support Medical Oncology 12/20/20 Varinder Granda MD [address] [place] [address] Radiation Oncologist Radiation Oncology 07/28/21 documented as of this encounter
--- OUTSIDE RECORDS SUMMARY | 2025-08-29 11:21 | XMS_ITS | Encounter Summary ---
Author Organization [facility] Healthcare Address [address] [place] [address] Care Team Providers Care Final Block Press Operator Name Role Phone Bridger De Jesus MD Primary Care Provider Hiren Argueta MD Unavailable Varinder Granda MD Unavailable Encounter Details Date Type Department Care Team (Late st Contact Info) Description 03/11/2021 Telephone [facility] Imaging [address] [place], [place] [id number] Tricia Light, Social History Tobacco Use Types Packs/Day Years Used Date Smoking Tobacco: Former Cigars Smokeless Tobacco: Former Alcohol Use Standard Drinks/Week Comments Yes 0 (1 standard drink = 0.6 oz pur e alcohol) social Sex and Gender Information Value Date Recorded Sex Assigned at Not on file Legal Sex Male 3:18 AM ENGINEERING OFFICER Gender Identity Not on file Sexual Orientation Not on file documented as of this encounter Plan of Treatment Not on file documented as of this encounter Visit Diagnoses Not on filedocumented in this encounter Care Teams Final Block Press Operator Relationship Specialty Start Date End Date Bridger De Jesus MD [address] [facility] [address] [place] [address] PCP - General 12/23/16 Hiren Argueta MD [address] [place] [address] [address] [place] [address] Medical Oncologist/Home Maker Medical Oncology 12/20/20 Varinder Granda MD [address] [facility] [address] [address] [address] [address] [place] [address] Radiation Oncologist Radiation Oncology 07/28/21 documented as of this encounter
--- OUTSIDE RECORDS SUMMARY | 2025-08-29 11:21 | XMS_ITS | Encounter Summary ---
Author Organization [facility] [employer] [facility] Address [address] [place] [address] Phone Care Team Providers Care Supervisor Evaporator Name Role Phone Bridger De Jesus MD Primary Care Provider Hiren Argueta MD Unavailable [phone] Varinder Granda MD Unavailable Encounter Details Date Type Department Care Team (Late st Contact Info) Description 08/26/2019 Telephone [facility] Medicine Oncology [address] [address] Lynnette Crespo, B.A. Social History Tobacco Use Types Packs/Day Years Used Date Smoking Tobacco: Former Cigars Smokeless Tobacco: Former Alcohol Use Standard Drinks/Week Comments Yes 0 (1 standard drink = 0.6 oz pur e alcohol) social Sex and Gender Information Value Date Recorded Sex Assigned at Not on file Legal Sex Male 3:18 AM DISTRICT AGENT Gender Identity Not on file Sexual Orientation Not on file documented as of this encounter Plan of Treatment Not on file documented as of this encounter Visit Diagnoses Not on filedocumented in this encounter Care Teams Supervisor Evaporator Relationship Specialty Start Date End Date Bridger De Jesus MD [address] [address] PCP - General 12/23/16 Hiren Argueta MD [address] [facility] [address] [place], [place] [id number] Medical Oncologist/Custody Officer Medical Oncology 12/20/20 Varinder Granda MD [address] [facility] [address] [place], [place] [id number] Radiation Oncologist Radiation Oncology 07/28/21 documented as of this encounter
--- OUTSIDE RECORDS SUMMARY | 2025-08-29 11:21 | XMS_ITS | Clinical Summary ---
Author Organization [facility] Address [address] [id number] Care Team Providers Care Machine Chocolate Molder Name Role Phone Bridger De Jesus MD [...] under the skin nightly 11/16/19 22 Active multivitamin (MULTIPLE VITAMINS ORAL)Indicatio ns:supplement Take 1 tablet by mouth every morning Activ e fenofibrate (TRIGLIDE) 160 mg tabletIndicati ons:hyperlipid emia Take 1 tablet (160 mg total) by mouth nightly 11/24/19 23 Active Precision Xtra Test strip 05/13/20 23 [...] route once for 1 dose 5 mL 11 10/05/20 24 Active apixaban (ELIQUIS) 5 mg [...] the original. Referring provider: Dr. Argueta Mr. Mario Rhoades is a 65-year-old with lung nodules. Patient has a history of Dayana 4 + 4 [id number] prostate cancer status post prostatectomy in 2011 [...] are negative. Problem Noted Date Diagnosed Date Severe obesity 05/09/2025 Assessment & Plan (05/09/2025 4:51 PM CDT): Right bundle branch block 05/09/2025 Assessment & Plan (05/09/2025 4:51 PM CDT): Essential hypertension 05/09/2025 Assessment & Plan (05/09/2025 4:51 PM CDT): Mixed hyperlipidemia 10/27/2024 Assessment & Plan (05/09/2025 4:51 PM CDT): On therapy Type 2 diabetes mellitus wit hout complication, without long-term current use of insulin 10/25/2024 Assessment & Plan (05/09/2025 4:51 PM CDT): Personal history of prostate cancer 10/25/2024 Community acquired pneumonia of left lower lobe of lung 10/25/2024 Acute pulmonary embolism wit h acute cor pulmonale, unspecified pulmonary embolism type 10/24/2024 Assessment & Plan (12/06/2024 2:01 PM PROGRAM PLANNER): Status post bilateral pulmonary thrombectomy. Patient doing [...] Signed by Varinder Granda MD on 05/23/2021 Assessment & Plan (05/09/2025 4:51 PM CDT): He reports he is currently stable and in remission. Encounters Date Type Department Care Team Description 06/09/2025 7:51 AM CDT - 06/09/2025 11:59 PM CDT Hospital Encounter [facility] Cardiac Testing [address] [place] [address] [id number] Pulmonary embolism with acute cor pulmonale, unspecified chronicity, unspecified pulmonary embolism type (HCC) Discharge Disposition: Discharge to home or self care from Last 3 Months Immunizations Immunization Administration Dates Next Due Influenza, [...] Comments Prostate cancer (HCC) DM (diabetes mellitus) HTN (hypertension) HLD (hyperlipidemia) Pneumonia DVT (deep venous thrombosis) Allergic rhinitis 1980 Dizziness Last week Tinnitus 1976 Sinusitis 1971 HL (hearing loss) 1976 Sleep apnea 2003 Family History Medical History Relation Name Comments Cancer Brother 1 Reed Rhoades Cancer Brother 2 Harsha Rhoades Sleep apnea Brother 2 Harsha Rhoades Snoring Father Reed Rhoades Heart failure Mother Sudha Rhoades Family history of heart failure - (Added by TW Conv) Cancer Paternal Grandfather C Hao Rhoades Prostate cancer Paternal Grandfather C Hao Rhoades F amily history of prostate cancer - (Added by TW Conv) Diabetes Paternal Grandmother Jess Rhoades Diabetes Sister 1 Linda Mobley Diabetes Sister 2 Mirian Espinosa Anesthesia problems Neg Hx Relation Name Status Comments Brother 1 Reed Rhoades Brother 2 Harsha Rhoades Father Reed Rhoades Mother Sudha Rhoades Paternal Grandfather C Hao Rhoades Paternal Grandmother Jess Rhoades Sister 1 Linda Mobley Sister 2 Mirian Espinosa Social History Tobacco Use Types Packs/Day Years Used Date Smoking Tobacco: Former Cigars Q uit: 2010 Smokeless Tobacco: Former Tobacco Cessation:Counseling Given: Not Answered Alcohol Use Standard Drinks/Week Comments Yes 0 (1 standard drink = 0.6 oz pur e alcohol) social C Utilities Answer Date Recorded In the past 12 months has Prior Knowledge, gas, oil, or water [place] threatened to shut off services in your home? No 10/25/2024 Social Connection and Isolation Panel Answer Date Recorded In a typical week, how many times do you talk on the phone with family, friends, or neighbors? More than three times a week 10/25/2024 How often do you get togethe r with friends or relatives? More than three times a week 10/25/2024 How often do you attend [facility] or anglican services? Never 10/25/2024 Do you belong to any clubs o r organizations such as orthodox groups, unions, fraternal or athletic groups, or [...] and heating? Not hard at all 10/25/2024 [facility] [place] of Occupat ional Health - Occupational Stress [...] money to buy more. Never true 10/25/20 24 Within the past 12 months, t he [...] any time in the past 12 m [facility], were you homeless or living in a prison (including now)? No 10/25/2024 Personal Safety Answer Date Recorded Have you ever been in or are you currently in a harmful physical or emotional relationship or is someone making you feel afraid or unsafe? 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 Not on file Not on file Not on file Obstetrics History Last Filed Vital Signs Vital Sign Reading Time Taken Comments Blood Pressure 104/60 05/09/2025 10:25 AM CDT Pulse 67 05/09/2025 10:25 AM CDT Temperature 36.6 C (97.9 F) 10/27/2024 10:45 AM PROGRAM PLANNER Respiratory Rate 22 10/27/2024 10:4 5 AM PROGRAM PLANNER Oxygen Saturation 97% 05/09/2025 10: 25 AM CDT Inhaled Oxygen Concentration - - Weight 112.9 kg (248 lb 12.8 oz) 2024 10:25 AM CDT Height 177.8 cm (5' 10) 05/09/2025 10: 25 AM CDT Body Mass Index 35.7 05/09/2025 10:25 AM CDT Plan of Treatment Health Maintenance Due Date Last Done Comments Albumin Creatinine Ratio, Urine 1955 Colon Cancer Screening-Colonoscopy 1955 Depression Screening 1955 Hepatitis C Screening 1955 Dilated Eye Exam 1955 Foot Exam 1955 Pneumococcal vaccine 65+ (1 of 2 - PCV) 1973 Zoster Vaccine (1 of 2) 10/21/2016 08/26/2016 Lipid Panel 01/07/2017 01/08/2016 Well Visit 65+ 2019 Hemoglobin A1C 04/25/2025 10/25/2024 Influenza Vaccine (#1) 2025 , 08/24/2020, 12/01/2019, Additional history exists Fall Risk Assessment 10/27/2025 10/27/2024, 04/01/2022, 12/10/2021, Additional history exists eGFR 10/27/2025 10/27/2024, 10/03, 10/25/2024, Additional history exists DTaP/Tdap/Td Vaccine (3 - Td or Tdap) 07/14/2026 07/14/2016, 11/23/2012, 08/07/2003, Additional history exists Hepatitis B Screening Completed 09/02/1996, 996 Abdominal Aortic Aneurysm (A AA) Screen Completed 06/06/2022, 03/18/2022, 10/20/2018, Additional history exists Prostate Cancer Screening-PSA Discontinued , 08/18/2023, 05/27/2023, Additional history exists Medical Devices Implanted Type Area Software Integration Developer Device Identifier Shelf Expiration Date Model / Serial / Lot Karlie Melendez Porp [place] Prosthesis Ossicular 655 - [id number] Implanted:Qty: 1 on 04/03/2023 by Toribio Hay MD at [facility] Left: Ear Karlie Melendez [id number] 02/01/2028 655 / / [id number] [employer] System Closure Repair Femoral Artery Suture Mediated Perclose Prostyle 44072-19 - [id number] Implanted:Qty: 1 on 10/25/2024 by Tashi Alvarez MD at [facility] [employer] 08/01/2026 01008-57 / / [id number] [employer] System Closure Repair Femoral Artery Suture Mediated Perclose Prostyle 79072-07 - [id number] Implanted:Qty: 1 on 10/25/2024 by Tashi Alvarez MD at [facility] [employer] 08/01/2026 78361-33 / / [id number] Procedures Procedure Name Priority Date/Time Associated Diagnosis Comments TRANSTHORACIC ECHO (TTE) COMPLETE W DOPPLER/CF WO CONTRAST Routine 06/09/2025 8:47 AM CDT Pulmonary embolism with acute cor pulmonale, unspecified chronicity, unspecified pulmonary embolism type (HCC) EGFR Routine 10/27/2024 2:47 AM PROGRAM PLANNER HEMOGLOBIN A1C Routine 10/25/2024 2:47 AM PROGRAM PLANNER PSA DIAGNOSTIC Routine 02/17/2024 7:34 AM CDT Prostate cancer metastatic to multiple sites (HCC) CT CHEST ABDOMEN PELVIS W CONTRAST Schedule Routine, Read Routine (OP Routine) 06/06/2022 12:19 PM CDT Malignant neoplasm of prostate (HCC) SERUM LIPID PANEL Routine 01/08/2016 10: 51 PM PROGRAM PLANNER from Last 3 Months or Most Recently Relevant to Health Maintenance Results * TRANSTHORACIC ECHO (TTE) COMPLETE W DOPPLER/CF WO CONTRAST (06/09/2025 8:47 AM CDT) Estimated EF 65-70 % CONS SCIMAGE EF Mod BP 67 % CONS SCIMAGE Anatomical Region Laterality Modality Ultrasound 06/09/2025 8:04 AM CDT Narrative 06/13/2025 12:06 PM CDT Transthoracic Echocardiographic Report Patient Name: MARIO RHOADES W : 1955 (69y 10m) Gender: M Study Date: 06/09/2025 08:04:19 AM Ht(Inch): 70 Wt(Lb): 248 BSA: 2.36 Oil Recovery Operator: Janet Simons RDCS Order Provider: CHRISTIANA MAYES Heart Rate: 63 BMI: 35.58 BP: 104 / 60 Ref Provider: CHRISTIANA MAYES PROCEDURES: Echocardiographic Report: ([id number]) Transthoracic complete echo, 2D, spectral and tissue Doppler, color flow Doppler, M-mode. INDICATIONS: I26.09 Other pulmonary embolism with acute cor pulmonale. FINDINGS: Left Ventricle: Normal left ventricular cavity size. Normal Left ventricular wall thickness. The Ejection Fraction (Guzman's) is measured at 67 %. The Ejection Fraction is visually estimated to be 65-70 %. Diastolic Function E to A reversal Suggestive of abnormal relaxation during early diastole. Right Ventricle: Normal right ventricular size. Normal right ventricular systolic function. Left Atrium: Mild to moderately dilated left atrium. Right Atrium: The right atrium is normal in size. Atrial Septum: The interatrial septum is normal in appearance. Mitral Valve: There is mild mitral valve regurgitation. No mitral valve stenosis. There is no evidence of mitral valve prolapse. Aortic Valve: Trileaflet aortic valve. Mild aortic valve regurgitation. No aortic valve stenosis. The mean transaortic gradient is 3 mmHg. Tricuspid Valve: There is mild tricuspid regurgitation. The estimated right ventricular systolic pressure is 21 mmHg. Normal estimated pulmonary artery systolic pressure. No tricuspid valve stenosis. Pulmonic Valve: There is mild pulmonic regurgitation. No stenosis present. Pericardium: No pericardial effusion. Aorta: Mildly dilated aortic root. IVC: The estimated RA pressure is 3 mmHg. CONCLUSIONS: 1. Normal left ventricular cavity size. The Ejection Fraction (Guzman's) is measured at 67 %. The Ejection Fraction is visually estimated to be 65-70 %. Diastolic Function E to A reversal Suggestive of abnormal relaxation during early diastole. 2. Normal right ventricular size. Normal right ventricular systolic function. 3. Mild to moderately dilated left atrium. 4. There is mild mitral valve regurgitation. 5. Mild aortic valve regurgitation. 6. There is mild tricuspid regurgitation. Normal estimated pulmonary artery systolic pressure. 7. Mildly dilated aortic root. MEASUREMENTS: 2D/MM Value Range Doppler Value LVIDd 2D 5.14 cm [ 3.50 - 5.70 ] AV Peak Gerald 1.29 m/s LVIDs 2D 2.34 cm [ 3.10 - 4.60 ] AV Peak PG 6.66 mmHg IVSd 2D 1.08 cm [ 0.60 - 1.20 ] AV Mean PG 3.00 mmHg LVPWd 2D 0.96 cm [ 0.60 - 1.10 ] AV VTI 26.80 cm LV Thickness Ratio 1.12 LVOT Peak Gerald 0.96 m/s LV Mass 2D 199.92 g LVOT Peak PG 3.69 mmHg LV Mass Index 2D 84.71 g/m2 LVOT Mean PG 2.00 mmHg RWT 0.37 LVOT VTI 20.50 cm EDV Mod BP 100.00 ml [ 62.00 - 150.00 ] LVOT Diam 2.40 cm LV EDV Index 42.37 ml/m2 SV LVOT 93.00 cm3 ESV Mod BP 33.50 ml [ 21.00 - 61.00 ] MOOSE VTI 3.46 cm2 EF Mod BP 67 % [ 52 - 72 ] MOOSE Vmax 3.36 cm2 Visually Estimated EF 65-70 % LVOT/AV VTI 0.76 - Dimensionless index (DVI) LA Dimension 2D 4.80 cm [ 1.90 - 4.00 ] MV E Peak Gerald 0.61 m/s LA Length 2C 5.51 cm MV A Peak Gerald 0.69 m/s LA Length 4C 5.09 cm MV A Dur 119.00 msec LA Volume BP 63.30 ml MV E/A 0.90 ratio LA Volume Index 26.82 ml/m2 [ 16.00 - 34.00 ] MV Decel Time 232.00 msec RV Base Dimen 2D 4.3 cm [ 2.5 - 4.2 ] Med E` Gerald 0.07 m/s RV Mid Dimen 2D 3.5 cm Lat E` Gerald 0.10 m/s RV Length Dimen 2D 7.6 cm Average E/E` 717.65 TAPSE 2.77 cm [ 1.71 - 5.00 ] TV Peak Gerald 0.46 m/s RA Volume 39.80 ml TV Peak PG 0.85 mmHg RA Volume Index 16.86 ml/m2 RV S` 0.13 m/s AoR Diam 2D 4.00 cm [ 2.00 - 3.70 ] TR Peak Gerald 2.14 m/s Ao Root Index 1.69 cm/m2 [ 1.00 - 2.00 ] TR Peak PG 18.3 mmHg Asc Ao Diam 2D 2.90 cm RA Pressure 3.00 mmHg Asc Ao Index 1.23 cm/m2 RVSP 21.30 mmHg PV Peak Gerald 1.36 m/s PV Peak PG 7.40 mmHg PV Mean PG 4.00 mmHg PI ED Gerald 82.80 cm/sec RVOT VTI 13.20 - ATTESTATION: I have reviewed and interpreted the pertinent images and measurements of this study. I attest to the conclusions in the final report that is provided above. DISCLAIMER: The study images and the final report will be retained in the patient chart by the [facility] Laboratory for the legally required time period. This chart constitutes the legal record of any testing performed. Electronically Signed By: Christiana Mayes MD 06/13/2025 12:05:11 PM CDT Procedure Note Christiana Mayes MD - 06/13/2025 Transthoracic Echocardiographic Report Patient Name: MARIO RHOADES W : 1955 (69y 10m) Gender: M Study Date: 06/09/2025 08:04:19 AM Ht(Inch): 70 Wt(Lb): 248 BSA: 2.36 Oil Recovery Operator: Janet Simons RDCS Order Provider: CHRISTIANA MAYES Heart Rate: 63 BMI: 35.58 BP: 104 / 60 Ref Provider: CHRISTIANA MAYES PROCEDURES: Echocardiographic Report: ([id number]) Transthoracic complete echo, 2D,spectral and tissue Doppler, color flow Doppler, M-mode. INDICATIONS: I26.09 Other pulmonary embolism with acute cor pulmonale. FINDINGS: Left Ventricle: Normal left ventricular cavity size. Normal Leftventricular wall thickness. The Ejection Fraction (Guzman's) is measured at 67 %. TheEjection Fraction is visually estimated to be 65-70 %. Diastolic Function E to A reversalSuggestive of abnormal relaxation during early diastole. Right Ventricle: Normal right ventricular size. Normal right ventricularsystolic function. Left Atrium: Mild to moderately dilated left atrium. Right Atrium: The right atrium is normal in size. Atrial Septum: The interatrial septum is normal in appearance. Mitral Valve: There is mild mitral valve regurgitation. No mitral valvestenosis. There is no evidence of mitral valve prolapse. Aortic Valve: Trileaflet aortic valve. Mild aortic valve regurgitation. Noaortic valve stenosis. The mean transaortic gradient is 3 mmHg. Tricuspid Valve: There is mild tricuspid regurgitation. The estimatedright ventricular systolic pressure is 21 mmHg. Normal estimated pulmonary artery systolicpressure. No tricuspid valve stenosis. Pulmonic Valve: There is mild pulmonic regurgitation. No stenosispresent. Pericardium: No pericardial effusion. Aorta: Mildly dilated aortic root. IVC: The estimated RA pressure is 3 mmHg. CONCLUSIONS: 1. Normal left ventricular cavity size. The Ejection Fraction (Guzman's)is measured at 67 %. The Ejection Fraction is visually estimated to be 65-70 %. DiastolicFunction E to A reversal Suggestive of abnormal relaxation during early diastole. 2. Normal right ventricular size. Normal right ventricular systolicfunction. 3. Mild to moderately dilated left atrium. 4. There is mild mitral valve regurgitation. 5. Mild aortic valve regurgitation. 6. There is mild tricuspid regurgitation. Normal estimated pulmonaryartery systolic pressure. 7. Mildly dilated aortic root. MEASUREMENTS: 2D/MM Value Range DopplerValue LVIDd 2D 5.14 cm [ 3.50 - 5.70 ] AV Peak Vel1.29 m/s LVIDs 2D 2.34 cm [ 3.10 - 4.60 ] AV Peak PG6.66 mmHg IVSd 2D 1.08 cm [ 0.60 - 1.20 ] AV Mean PG3.00 mmHg LVPWd 2D 0.96 cm [ 0.60 - 1.10 ] AV VTI26.80 cm LV Thickness Ratio 1.12 LVOT PeakVel 0.96 m/s LV Mass 2D 199.92 g LVOT Peak PG3.69 mmHg LV Mass Index 2D 84.71 g/m2 LVOT Mean PG2.00 mmHg RWT 0.37 LVOT VTI20.50 cm EDV Mod BP 100.00 ml [ 62.00 - 150.00 ] LVOT Diam2.40 cm LV EDV Index 42.37 ml/m2 SV LVOT93.00 cm3 ESV Mod BP 33.50 ml [ 21.00 - 61.00 ] MOOSE VTI3.46 cm2 EF Mod BP 67 % [ 52 - 72 ] MOOSE Vmax3.36 cm2 Visually Estimated EF 65-70 % LVOT/AV VTI0.76 - Dimensionless index (DVI) LA Dimension 2D 4.80 cm [ 1.90 - 4.00 ] MV E PeakVel 0.61 m/s LA Length 2C 5.51 cm MV A PeakVel 0.69 m/s LA Length 4C 5.09 cm MV A Xpx876.00 msec LA Volume BP 63.30 ml MV E/A0.90 ratio LA Volume Index 26.82 ml/m2 [ 16.00 - 34.00 ] MV DecelTime 232.00 msec RV Base Dimen 2D 4.3 cm [ 2.5 - 4.2 ] Med E` Vel0.07 m/s RV Mid Dimen 2D 3.5 cm Lat E` Vel0.10 m/s RV Length Dimen 2D 7.6 cm Average E/E`717.65 TAPSE 2.77 cm [ 1.71 - 5.00 ] TV Peak Vel0.46 m/s RA Volume 39.80 ml TV Peak PG0.85 mmHg RA Volume Index 16.86 ml/m2 RV S`0.13 m/s AoR Diam 2D 4.00 cm [ 2.00 - 3.70 ] TR Peak Vel2.14 m/s Ao Root Index 1.69 cm/m2 [ 1.00 - 2.00 ] TR Peak PG18.3 mmHg Asc Ao Diam 2D 2.90 cm RA Pressure3.00 mmHg Asc Ao Index 1.23 cm/m2 RVSP21.30 mmHg PV Peak Gerald 1.36 m/s PV Peak PG 7.40 mmHg PV Mean PG 4.00 mmHg PI ED Gerald 82.80 cm/sec RVOT VTI 13.20 - ATTESTATION: I have reviewed and interpreted the pertinent images and measurements ofthis study. I attest to the conclusions in the final report that is provided above. DISCLAIMER: The study images and the final report will be retained in the patientchart by the Echo Laboratory for the legally required time period. This chart constitutesthe legal record of any testing performed. Electronically Signed By: Christiana Mayes MD 06/13/2025 12:05:11 PM CDT us Christiana Mayes MD CV ECHO PROCEDURES Final Result * eGFR (10/27/2024 2:47 AM PROGRAM PLANNER) eGFR 73 >=60 mL/min/1. 73 m2 Comment: [...] last reviewed 2021. Blood 10/27/2024 2:47 AM PROGRAM PLANNER 10/27/2024 3:12 AM PROGRAM PLANNER Tashi Alvarez MD LAB BLOOD ORDERABLES Final Result Performing Organization Address [facility] de Phone Number [address] [place] [address] * (ABNORMAL) Hemoglobin A1c (10/25/2024 2:47 AM PROGRAM PLANNER) [facility] Signature Hgb A1C 6.1(H) 4.0 - 5.6 % Estimated Average Glucose 128 mg/dL [place] Comment: The ADA recommends reporting an estimated Average Glucose (eAG) with all Hemoglobin A1c results using the equation derived from a study of 507 normal and diabetic adults. Minority populations were underrepresented and children were not included. (Diabetes Care 31:6996-5760, 2008). The eAG is not equivalent to a fasting glucose. Blood 10/25/2024 2:47 AM PROGRAM PLANNER 10/25/2024 3:08 AM PROGRAM PLANNER Phyllis Zimmer NP LAB BLOOD ORDERABLES Fi nal Result Performing Organization Address [facility] Co de Phone Number [place] [phone] [facility] [place] [address] * PSA diagnostic (02/17/2024 7:34 AM CDT) [...] Contreras NP LAB BLOOD ORDERABLES Final Result [facility] [address] [facility] [facility] [place] [address] * CT chest abdomen pelvis with contrast [...] by: Harsha Romeo M.D. Hiren Argueta MD [facility] CT PROCEDURES Edit ed Result - Final * (ABNORMAL) Serum lipid panel (01/08/2016 10:51 PM PROGRAM PLANNER) Pathologist [facility] Cholesterol 140 0 - 200 mg/dl HISTORICAL [...] revised 2012. Serum 01/08/2016 10:5 1 PM PROGRAM PLANNER José Sommer MD LAB BLOOD ORDERABLES Final Result HISTORICAL RESULTS from Last 3 Months or Most Recently Relevant to Health Maintenance Insurance [employer] MEDICARE [employer] MEDICARE Advance Directives For more information, please contact: [phone] * Full Code (Latest Code Status on File) Date Activated Date Inactivated Comments 10/25/2024 2:08 AM 10/27/2024 8:05 PM Care Teams Machine Chocolate Molder Relationship Specialty Start Date End Date Bridger De Jesus MD [address] [place] [address] PCP - General 12/23/16 Hiren Argueta MD [address] [place], [place] [phone] Medical Oncologist/Socially Responsible Investment Adviser Medical Oncology 12/20/20 Varinder Granda MD [address] [place], [place] [phone] Radiation Oncologist Radiation Oncology 07/28/21
--- OUTSIDE RECORDS SUMMARY | 2025-08-29 11:21 | XMS_ITS | Encounter Summary ---
Author Organization [facility] Address [address] [place] [address] Phone Care Team Providers Care Sql Report Analyst Name Role Phone Bridger De Jesus MD Primary Care Provider Hiren Argueta MD Unavailable [phone] Varinder Granda MD Unavailable Reason for Visit * Reason Onset Date Comments SCHEDULE UPDATE 05/16/2021 Encounter Details Date Type Department Care Team (Late st Contact Info) Description 05/16/2021 Telephone [facility] Medicine Oncology [address] [facility] [address] [place] [address] Krystyna Valenzuela, [facility] SCHEDULE UPDATE Social History Tobacco Use Types Packs/Day Years Used Date Smoking Tobacco: Former Cigars Q uit: 2010 Smokeless Tobacco: Former Alcohol Use Standard Drinks/Week Comments Yes 0 (1 standard drink = 0.6 oz pur e alcohol) social Sex and Gender Information Value Date Recorded Sex Assigned at Not on file Legal Sex Male 3:18 AM AVIATION MAINTENANCE INSTRUCTOR Gender Identity Not on file Sexual Orientation Not on file 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 on file Not on file Not on file documented as of this encounter Plan of Treatment Not on file documented as of this encounter Visit Diagnoses Not on filedocumented in this encounter Care Teams Sql Report Analyst Relationship Specialty Start Date End Date Bridger De Jesus MD [address] [place] [address] PCP - General 12/23/16 Hiren Argueta MD [address] [facility] [address] [place], [place] [phone] Medical Oncologist/General Merchandise Salesperson Medical Oncology 12/20/20 Varinder Granda MD [address] [facility] [address] [place] [address] Radiation Oncologist Radiation Oncology 07/28/21 documented as of this encounter
--- OUTSIDE RECORDS SUMMARY | 2025-08-29 11:21 | XMS_ITS | Encounter Summary ---
Author Organization [facility] [employer] Address [address] [place] [address] Phone Care Team Providers Care Account Financial Manager Name Role Phone Bridger De Jesus MD Primary Care Provider Hiren Argueta MD Unavailable [phone] Varinder Granda MD Unavailable Reason for Visit * Reason Onset Date Comments Scheduling Appointments 12/28/2020 patient has apt times Encounter Details Date Type Department Care Team (Late st Contact Info) Description 12/28/2020 Telephone [facility] Medicine Oncology 10 [facility] [address] [place] [phone] Daphney Arrington CMA Scheduling Appointments (patient has apt times ) Social History Tobacco Use Types Packs/Day Years Used Date Smoking Tobacco: Former Cigars Smokeless Tobacco: Former Alcohol Use Standard Drinks/Week Comments Yes 0 (1 standard drink = 0.6 oz pur e alcohol) social Sex and Gender Information Value Date Recorded Sex Assigned at Not on file 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 Gender Identity Not on file Sexual Orientation Not on file documented as of this encounter Plan of Treatment Not on file documented as of this encounter Visit Diagnoses Not on filedocumented in this encounter Care Teams Account Financial Manager Relationship Specialty Start Date End Date Bridger De Jesus MD [address] [facility] [address] [place] [id number] PCP - General 12/23/16 Hiren Argueta MD [address] [place] [address] Medical Oncologist/Coremaking Machine Operator Medical Oncology 12/20/20 Varinder Granda MD [address] [place] [address] Radiation Oncologist Radiation Oncology 07/28/21 documented as of this encounter
--- OUTSIDE RECORDS SUMMARY | 2025-08-29 11:21 | XMS_ITS | Encounter Summary ---
Author Organization [facility] Address [address] [place] [address] Phone Care Team Providers Care Architect In Training Name Role Phone Bridger De Jesus MD Primary Care Provider Hiren Argueta MD Unavailable [phone] Varinder Granda MD Unavailable Encounter Details Date [...] of Binge Drinking Not on file 03/04 [place] [place] [employer] [facility] - Occupational Stress Questionnaire Answer Date Recorded Do you feel stress - tense, restless, nervous, or anxious, or unable to sleep at night because your mind is troubled all the time - these days? 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
--- OUTSIDE RECORDS SUMMARY | 2025-08-29 11:21 | XMS_ITS ---
Author Organization [facility] Address [address] [id number] Care Team Providers Care Family Service Counselor Name Role Phone Bridger De Jesus MD Primary Care Provider Hiren Argueta MD Unavailable Varinder Granda MD Unavailable [phone] Active Problems Patient Care Coordination No te Formatting of this note migh t be different from the original. Referring provider: Dr. Argueta Mr. Wayne Kiran is a 65-year-old with lung nodules. Patient has a history of [place] 4 + 4 [id number] prostate cancer status post prostatectomy in 2011 [...] 10/24/2024 Assessment & Plan (12/06/2024 2:01 PM MODEL BUILDER DISPLAY): Status post bilateral pulmonary thrombectomy. Patient doing [...] he is currently stable and in remission. Current Treatment and Therapy Plans denosumab (PROLIA) Injection* Plan Start Date:07/30/2022 Plan Provider:Hiren Argueta MD Linked Problems Prostate cancer metastatic t o multiple sites (HCC)History of hormone therapy Treatment Medications No medications scheduled. Past Treatment and Therapy Plans Oncology Chemotherapy Treatment Plan Name Start Date Discontinue Date Treatment Medications Discontinue Reason Plan Provider Cycles Degarelix 28 Day Cycles + Aplautamide 240mg QD- Prostate 04/02/2022 09/24/2022 degarelix (FIRMAGON) Therapy Complete Hiren Argueta MD 5 of 12 cycles started Oncology Treatment (2) Plan Name Start Date Discontinue Date Treatment Medications Discontinue Reason Plan Provider Cycles Leuprolide Every 3 Months - Prostate + Aplautamide 240mg qd 09/24/2005/11/2025 leuprolide (ELIGARD)leup rolide acetate (3 month) (ELIGARD) Automatic discontinuation of dormant plans Hiren Argueta MD 2 of 5 cycles started Radiation Treatments * Course C1 [...] Lifetime Dose Automatic Entry Manual Entr y Fluoro Time 9.4 minutes 0 minutes 9.4 minutes Air kerma at the reference point (Ka,r) 544 mGy 0 mGy 544 mGy DLP 8,520 mGycm 8,520 mGycm 0 mGycm DAP 98 Gy-cm2 0 Gy-cm2 98 Gy-cm2
--- OUTSIDE RECORDS SUMMARY | 2025-08-29 11:21 | XMS_ITS | Clinical Summary ---
Author Organization [facility] Address [address] [place] [address] Care Team Providers Care Contract Administration Coordinator Name Role Phone Bridger De Jesus MD Primary Care Provider [phone] Hiren Argueta MD Unavailable [phone] Allergies No known active allergies Medications multi [...] Active Additional Information Patient not taking.Reported on 06/22/2025 OZEMPIC 2 mg/dose injection (PEN) 4 Active ELIQUIS 5 MG tablet Take 1 tablet (5 mg total) by mouth 2 (two) times daily. 5 Active LANTUS SOLOSTAR 100 UNIT/ML injection (PEN) Inject into the skin nightly at bedtime. 5 Active tamsulosin (FLOMAX) 0.4 MG Cap Take 1 capsule (0.4 mg total) by mouth daily. 5 Active Active Problems Problem Noted Date Diagnosed [...] Primary osteoarthritis of left knee 10/24/2021 Diabetes 10/24/2021 Secondary malignant neoplasm of lung 05/23/2021 Prostate cancer metastatic to multiple sites Resolved Problems Problem Noted Date Diagnosed Date Resolved Date Encounter for preventive health examination 11/15/2012 02/02/2023 Encounters Date Type Department Care Team Description 06/22/2025 8:00 AM CDT Office Visit [facility] - [place] [address] Stevenson Kan MD Follow Up (Left knee ) 06/22/2025 Scan [facility] SRVCS Scanned, Doc Med Group 06/22/2025 Travel 06/19/2025 Orders Only [facility] [place] [address] [place] [address] Stevenson Kan MD from Last 3 Months Immunizations Immunization Administration Dates Next Due Fluzone High Dose - >Age 65 (Prefilled Syringe) 08/24/2020 Influenza (Generic) 12/01/2019,07/12/2013 Influenza Adult (Generic) 08/29/2018,,08/07/2017,2016,09/23/2015 Tdap (Generic) 11/23/2012 Family History Medical History Relation Comments Diabetes Brother 1 Prostate Cancer Brother 2 Brain tumor Cousin Stroke Maternal Grandfather Heart Mother Cancer Paternal Grandfather Diabetes Paternal Grandmother Diabetes Sister 1 Diabetes Sister 2 Relation Status Comments Brother 1 Alive Brother 2 Alive Cousin Daughter Alive Father Maternal Grandfather Maternal Grandmother Mother Paternal Grandfather Alive Paternal Grandmother Sister 1 Alive Sister 2 Alive Social History Tobacco Use Types Packs/Day Years Used Date Smoking Tobacco: Former Cigarettes 1 15 Q uit: 08/31/2010 Pipe Cigars Passive Smoke Exposure: Never Smokeless Tobacco: Former Chew Tobacco Cessation:Counseling Given: Not Answered Comments:Former, Quit 2009 Alcohol Use Standard Drinks/Week Comments Yes 1.7 (1 standard drink = 0.6 oz p ure alcohol) NA PHQ-2 Answer Date Recorded Patient Health Questionnaire-2 Score 0 03/22/2024 Sex and Gender Information Value Date Recorded Sex Assigned at Not on file Legal Sex Male 7:29 PM CDT Gender Identity Male 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 Sexual Orientation Straight 12/09/2021 10 :05 AM POWER 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 Last Filed Vital Signs Vital Sign Reading Time Taken Comments Blood Pressure 113/73 06/22/2025 8:18 AM CDT Pulse 62 06/22/2025 8:18 AM CDT Temperature 36.6 C (97.9 F) 06/22/2025 8:18 AM CDT Respiratory Rate 18 03/11/2024 5:28 PM CDT Oxygen Saturation 96% 2024 1:45 PM CDT Inhaled Oxygen Concentration - - Weight 113.9 kg (251 lb) 06/22/2025 8:18 AM CDT Height 177.8 cm (5' 10) 06/22/2025 8:18 AM CDT Body Mass Index 36.01 06/22/2025 8:18 AM CDT Plan of Treatment Health Maintenance Due Date Last Done Comments Colorectal Cancer Screening Colonoscopy (10 Years) 1954 Kidney Health Evaluation 1954 Lipid Panel 1954 Diabetes: Retinopathy Eye Exam 1972 Hepatitis C 1972 Pneumococcal Vaccine: 50+ Years (1 of 2 - PCV) 1973 Zoster Vaccines (1 of 2) 2004 RSV Immunization or 60+ Years (1 - Risk 60-74 years 1-dose series) 2014 Annual Medicare Wellness Visit 2019 DTaP, Tdap and Td Vaccines (2 - Td or Tdap) 11/23/2022 11/23/2012 PHQ-2 (Physician Ione) 11/02/2024 03/22/2024 Hemoglobin A1C 04/25/2025 10/25/2024, 11/01/2021 COVID-19 Vaccine (3 - season) 2025 02/04/2021, 01/11/2021 Influenza Adult (#1) 2025 08/24/2020, 12/01/2019, 08/29/2018, Additional history exists AAA SCREENING Completed 06/06/2022, 03/2022, 04/01/2022, Additional history exists Hepatitis A Vaccines Aged Out No long er eligible based on patient's age to complete this topic Meningococcal B Vaccine Aged Out No l onger eligible based on patient's age to complete this topic Meningococcal Vaccine Aged Out No karen bety eligible based on patient's age to complete this topic RSV Immunizations Under 20 Months Aged Out No longer eligible based on patient's age to complete this topic Medical Devices Implanted Type Area Conciliation Court Judge Device Identifier Shelf Expiration Date Model / Serial / Lot Implant Ar[employer]rex [place] Bio-Corkscrew 4.5mm - [id number] Implanted:Qty : 1 on 03/11/2024 by Stevenson Kan MD at [facility] [place] Right: Shoulder [employer] [id number] 08/01/2027 AR-1927B CF-45 / / [id number] Implant [place] Arthrex Bio Swivelock 4.75mm - [id number] Implanted:Qty : 2 on 03/11/2024 by Stevenson Kan MD at [facility] [place] Right: Shoulder [employer] [id number] 12/02/2027 AR-2324B CC / / [id number] [place] Suture [employer] Bio Swivelock 5.5mm - [id number] Implanted:Qty : 1 on 03/11/2024 by Stevenson Kan MD at [facility] [place] Right: Shoulder [employer] [id number] 12/02/2027 AR-2323B CC / / [id number] Cement Bone Tobramycin Simplex - [id number] Implanted:Qty : 1 on 01/29/2022 by Stevenson Kan MD at [facility] Cement Implant Right: Knee [employer]URIE [id number] 11/01/2022 6197-9-0 10 / / [id number] Cement Full Dose - [id number] Implanted:Qty : 1 on 01/29/2022 by Stevenson Kan MD at [facility] Cement Implant Right: Knee [employer] [id number] 04/01/2024 6191-1-0 10 / / [id number] Component Femoral 4 Knee Unicondylar Right Medial Anatomic Design Cemented Resurface Ibalance - [id number] Implanted:Qty : 1 on 01/29/2022 by Stevenson Kan MD at [facility] Knee Components Right: Femur [employer] [id number] 07/02/2025 MALCOM-501-U FRD / / [id number] Ibalance Uka Tibial Tray Implanted:Qty : 1 on 01/29/2022 by Stevenson Kan MD at [facility] Knee Components Right: Tibia [employer] [id number] 03/01/2025 MALCOM-511-T / / [id number] Ibalance Uka Tibial Bearing Implant Vitamin E Implanted:Qty : 1 on 01/29/2022 by Stevenson Kan MD at [facility] Knee Components Right: Tibia [employer] [id number] 03/01/2026 AR-521-T BD0 / / [id number] Procedures Procedure Name Priority Date/Time Associated Diagnosis Comments OXR LT KNEE 3V Routine 06/22/2025 8:17 AM CDT Primary osteoarthritis of left knee OUTSIDE LAB (SCAN ORDER) Routine 11/01/2021 from Last 3 Months or Most Recently Relevant to Health Maintenance Results * OXR LT KNEE 3V (06/22/2025 8:17 AM CDT) Anatomical Region Laterality Modality Radiographic Rosa ging Narrative 06/22/2025 8:36 AM CDT PROCEDURE: OXR LT KNEE 3V VIEWS: 3 DATE: 06/22/25 COMPARISONS: None CLINICAL INDICATION: FINDINGS: mild medial and mild patellofemoral osteoarthritic changes. 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 IMPRESSION: Mild knee arthritis. us Stevenson Kan MD GENERAL IMAGING Final Result * OUTSIDE LAB (SCAN) (11/01/2021) HGB A1C 7.8 % [facility] 11/01/2021 us Documents Scanned SCANNING Final Result [facility] from Last 3 Months or Most Recently Relevant to Health Maintenance Insurance MEDICARE [employer] Care Teams Contract Administration Coordinator Relationship Specialty Start Date End Date Bridger De Jesus MD [address] [place] [address] PCP - General FAMILY PRACTICE 08/27/21 Hiren Argueta MD [address] [facility] [address] [facility], [address] [place] [address] MEDICAL ONCOLOGY 02/11/24
== END 2025-08-29 09:57 | disposition home or self-care (01) ==
PROVIDERS: PCP Family Medicine; Visit Provider Physician Assistant Surgical
DX: M18.11 Unilateral primary osteoarthritis of first carpometacarpal joint, right hand (principal)
CPT/HCPCS: 73130

== ENCOUNTER 2025-09-02 07:24 | Outpatient (CLI) | payer MEDICARE, OTHER, SELFPAY ==
[2025-09-02 08:17] LABS: Alanine Aminotransferase 26 U/L (6-50); Albumin Level 4.0 g/dL (3.5-5.1); Alkaline Phosphatase 62 U/L (38-126); Anion Gap 4 mmol/L (4-12); Aspartate Amino Transferase 35 U/L (17-59); Bilirubin,Total 0.4 mg/dL (0.2-1.3); Blood Urea Nitrogen 19 mg/dL (9-20); Calcium 8.4 mg/dL (8.4-10.2); Carbon Dioxide 30 mmol/L (22-30); Chloride 107 mmol/L (98-107); Estimated Glomerular Filt Rate > 60; Glucose 101 mg/dL (65-110); Potassium 4.1 mmol/L (3.4-5.0); Sodium 141 mmol/L (137-145); Total Protein 6.9 g/dL (6.3-8.2)
[2025-09-02 08:35] LABS: Hemoglobin A1C 5.7 % (<5.7)
[2025-09-02 08:54] LABS: Prostate Specific Antigen < 0.1 ng/mL (< OR = 4.0)
== END 2025-09-02 07:25 | disposition home or self-care (01) ==
PROVIDERS: PCP Family Medicine; Visit Provider Family Medicine
DX: E11.3299 Type 2 diabetes mellitus with mild nonproliferative diabetic retinopathy without macular edema, unspecified eye (principal); C61 Malignant neoplasm of prostate
CPT/HCPCS: 36415; 80053; 83036; 84153